=== PATIENT | male | born 1970 ===

== ENCOUNTER 2020-07-14 09:14 | Outpatient (REF) | payer MEDICARE, MEDICAID, SELFPAY ==
[2020-07-14 11:14] LABS: MANUAL DIFF FLAG NO
[2020-07-14 11:24] LABS: Basophils Percent Auto 0.2 % (0-2); Eosinophils Absolute Auto 0.1 X10*3/uL (0.0-0.4); Eosinophils Percent Auto 1.3 % (0-4); Hematocrit 44.7 % (42-52); Hemoglobin 15.4 g/dl (14.0-18.0); Lymphocytes Absolute Auto 1.3 X10*3/uL (1.2-4.9); Lymphocytes Percent Auto 27.4 % (20-40); Mean Corpuscular HGB Conc 34.5 g/dl (31.0-36.0); Mean Corpuscular Volume 92.9 fL (80-98); Mean Platelet Volume 10.7 fL (9.4-12.4); Monocytes Absolute Auto 0.6 X10*3/uL (0.1-1.2); Monocytes Percent Auto 11.7 % (2-11); Neutrophils Absolute Auto 2.8 X10*3/uL (2.0-8.3); Neutrophils Percent Auto 59.4 % (45-73); Platelet Count 247 X10*3/uL (160-400); Red Blood Count 4.81 X10*6/uL (4.60-5.80); Red Cell Distribution Width 12.5 % (11.0-16.0); White Blood Count 4.7 X10*3/uL (4.8-10.8)
[2020-07-14 11:42] LABS: Alanine Aminotransferase 24 U/L (0-40); Albumin Level 4.2 g/dL (3.5-5.0); Alkaline Phosphatase 72 U/L (39-117); Anion Gap 14 (12-20); Aspartate Amino Transferase 18 U/L (5-37); Bilirubin Total 0.7 mg/dL (0.0-1.0); Blood Urea Nitrogen 13 mg/dL (9-16); Carbon Dioxide 28 mmol/L (22-29); Chloride 102 mmol/L (96-108); Cholesterol 235 mg/dL; Estimated Glomerular Filt Rate > 60; Glucose Fasting 90 mg/dL (60-99); HDL Cholesterol 37 mg/dL; LDL Cholesterol Calculated 129 mg/dl; Potassium 4.1 mmol/L (3.3-5.1); Sodium 140 mmol/L (135-145); Total Protein 6.9 g/dL (6.5-8.0); Triglycerides 349 mg/dL
[2020-07-14 11:55] LABS: Vitamin D 25-OH Total 16.5 ng/mL (>30)
[2020-07-14 12:04] LABS: Thyroid Stimulating Hormone 3.56 uIU/mL (0.32-4.0)
== END 2020-07-14 09:15 | disposition home or self-care (01) ==
LOC: HO.HMGCLDS 09:14
PROVIDERS: Nurse Practitioner Family; PCP Internal Medicine; Visit Provider Internal Medicine
DX: E66.9 Obesity, unspecified (principal); K43.9 Ventral hernia without obstruction or gangrene; R68.89 Other general symptoms and signs; Z86.018 Personal history of other benign neoplasm; Z76.89 Persons encountering health services in other specified circumstances
CPT/HCPCS: 36415; 80053; 80061; 82306; 84443; 85025

== ENCOUNTER 2020-07-21 08:48 | Outpatient (REF) | payer MEDICARE, MEDICAID, SELFPAY ==
--- NOTE | ~2020-07-21 | US_ITS ---
EXAMINATION: US ABDOMEN LIMITED CLINICAL INFORMATION: Ventral hernia without obstruction or pain. COMPARISON: None TECHNIQUE: Real-time imaging of the abdomen. FINDINGS: There is a 1.5 x 3.5 x 3.5 cm ventral hernia superior to the umbilicus. The neck of the hernia measures 1 cm. No peristalsing bowel is seen and this presumably contains fat. US/US abdomen limited IMPRESSION: Ventral hernia superior to the umbilicus.
== END 2020-07-21 08:49 | disposition home or self-care (01) ==
LOC: HO.US 08:48
PROVIDERS: Visit Provider Internal Medicine
DX: K43.9 Ventral hernia without obstruction or gangrene (principal)
CPT/HCPCS: 76705

== ENCOUNTER 2020-11-10 20:17 | Emergency (ER) | payer MEDICARE, MEDICAID, SELFPAY ==
[2020-11-10 20:35] VITALS: BP 150/84; PULSE 68; RESP 18; TEMP 36.9; O2SAT 96; BMI 30.7
[2020-11-10 21:00] LABS: Strep A Nucleic Acid Negative (Negative)
[2020-11-10 21:18] LABS: COVID-19 Test Negative (Negative)
--- NOTE | 2020-11-10 21:37 | ED_ITS ---
HPI - General Adult General Chief complaint: General Medical Stated complaint: throat pain for 3 days Time Seen by Provider: 11/10/20 21:37 Source: patient Mode of arrival: ambulatory History of Present Illness HPI narrative: 50-year-old male without significant past medical history and denies any cigarette smoking presents with 3-4 days of sore throat that affects his ability to swallow and he has attempted to take some leftover penicillin at home, but states that the pain has not improved. Otherwise, he denies any fever, chills, cough, body aches, GI or symptoms. Related Data Home Medications Medication Instructions Recorded Confirmed No Known Home Meds 05/12/20 07/02/20 Allergies Allergy/AdvReac Type Severity Reaction Status Date / Time No Known Allergies Allergy Verified 11/10/20 20:35 Review of Systems Review of Systems: Pertinent positives and negatives as stated in HPI 10 point review of systems is otherwise negative [facility] Past Medical History Source: nursing notes reviewed Medical History High cholesterol Hypertension Family History Family History Father Hypertension Diabetes Social History Social History Alcohol intake: former Advance Directives: No Advance Directives Information Provided: Yes Physical Exam Vital Signs: Vital Signs: Last Vital Signs Temp 98.4 F 11/10/20 20:35 Pulse 68 11/10/20 20:35 Resp 18 11/10/20 20:35 BP 150/84 H 11/10/20 20:35 Pulse Ox 96 11/10/20 20:35 Body Mass Index 30.7 VITAL SIGNS: Reviewed. GENERAL: Well developed, well nourished, in no acute distress. HEAD: Normocephalic/atraumatic EYES: PERRLA, EOMI EARS: Ext canals without abnormality, TMs non-bulging and non-erythematous NOSE: Nares patent bilateral OROPHARYNX: no oral lesions noted, posterior pharynx is erythematous without noted tonsillar enlargement/erythema/exudates NECK: Supple, no adenopathy LUNGS: Normal breath sounds. No adventitious sounds or accessory muscle use. SpO2<96> CARDIOVASCULAR: Regular rate and rhythm without noted murmurs ABDOMEN: Soft, non-tender, non-distended with bowel sounds. SKIN: Inspection of the skin reveals no rashes NEUROLOGIC: Alert and oriented x 4. Strength and sensation to light touch were grossly intact x 4. Course Course Course Narrative: 50-year-old male with history and clinical presentation most consistent with viral pharyngitis after review of investigations were negative for acute findings. Medical Decision Making Lab Data Labs: Lab Results 11/10/20 11/10/20 Range/Units 20:40 20:57 COVID-19 (YEMI) Negative (Negative) COVID-19 Clin Com See Note S. pyogenes GrpA JAMEEL Negative (Negative) Discharge Plan Discharge Clinical Impression: Pharyngitis Patient Disposition: Home, Self-Care Instructions: Pharyngitis (ED) Additional Instructions: 1. Recomiende hacer g?rgaras con soluci?n salina (ioana de pérez mezclada con agua del grifo tibia) y hacer g?rgaras aurora 5 minutos, dos veces al d?a, aurora 3 d?as. 2. Recomiende Cepacol o Sucrets de venta nando para aliviar el dolor de garganta. 3. Recomiende un humidificador de vapor fr?o junto a la cama mientras duerme. Regrese a la darrell de emergencias por un empeoramiento becky de los s?ntomas. Prescriptions: No Action No Known Home Meds RF: 0 Referrals: Physician,Unknown [Primary Care Provider] - 2 days Print Language: Amharic
== END 2020-11-10 21:54 | disposition home or self-care (01) ==
PROVIDERS: Emergency Provider Student in an Organized Health Care Education/Training Program
DX: J02.9 Acute pharyngitis, unspecified (principal); Z20.822 Contact with and (suspected) exposure to COVID-19; I10 Essential (primary) hypertension; E78.5 Hyperlipidemia, unspecified
CPT/HCPCS: 36415; 87635; 87651; 99283

== ENCOUNTER 2021-04-14 01:25 | Emergency (ER) | payer MEDICARE, MEDICAID, SELFPAY ==
--- NOTE | ~2021-04-14 | XR_ITS ---
EXAMINATION: XR CHEST CLINICAL INFORMATION: Chest pain COMPARISON: None TECHNIQUE: Frontal view of the chest was obtained. FINDINGS: There is blunting of the right costophrenic angle which could be secondary to scarring, as there are adjacent chronic appearing right rib deformities. Small pleural effusion would be difficult to exclude. Lungs appear clear bilaterally. No evidence of pneumothorax or pulmonary edema. The cardiomediastinal contour is unremarkable. No acute osseous findings are seen. XR/XR chest 1V IMPRESSION: Blunting of the right costophrenic angle which may be secondary to scarring, though no prior studies are available for comparison. Small pleural effusion would be difficult to exclude.
--- NOTE | 2021-04-14 01:35 | ECG_ITS ---
Test Reason : CP Blood Pressure : / mmHG Vent. Rate : 069 BPM Atrial Rate : 069 BPM P-R Int : 144 ms QRS Dur : 098 ms QT Int : 382 ms P-R-T Axes : 046 016 020 degrees QTc Int : 409 ms Normal sinus rhythm Normal ECG No previous ECGs available Referred By: Generic ED Physician Electronically Signed By:Demian Logan
[2021-04-14 01:49] VITALS: BP 149/97; PULSE 71; RESP 16; TEMP 37.1; O2SAT 99; BMI 29.0
[2021-04-14 01:49] LABS: MANUAL DIFF FLAG NO
[2021-04-14 01:54] LABS: Basophils Percent Auto 0.3 % (0-2); Eosinophils Absolute Auto 0.1 X10*3/uL (0.0-0.4); Eosinophils Percent Auto 1.8 % (0-4); Hematocrit 42.9 % (42.0-52.0); Hemoglobin 14.9 g/dl (14.0-18.0); Imm Gran Abs Auto 0.01 X10*3/uL (0.00-0.03); Imm Gran Pct Auto 0.2 % (0.0-0.4); Lymphocytes Percent Auto 32.4 % (20-40); Mean Corpuscular HGB Conc 34.7 g/dl (31.0-36.0); Mean Corpuscular Hemoglobin 31.7 pg (27.0-33.0); Mean Corpuscular Volume 91.3 fL (80.0-98.0); Mean Platelet Volume 10.1 fL (9.4-12.4); Monocytes Absolute Auto 0.7 X10*3/uL (0.1-1.2); Monocytes Percent Auto 11.6 % (2-11); Neutrophils Absolute Auto 3.2 x10*3/uL (2.0-8.3); Neutrophils Percent Auto 53.7 % (45-73); Platelet Count 239 X10*3/uL (160-400); Red Cell Distribution Width 12.4 % (11.0-16.0)
[2021-04-14 02:06] LABS: Anion Gap 11 (12-20); Blood Urea Nitrogen 16 mg/dL (9-16); Carbon Dioxide 27 mmol/L (22-29); Chloride 104 mmol/L (96-108); Creatinine Clr Calc Pharmacy 99.6; Estimated Glomerular Filt Rate > 60; Glucose Random 98 mg/dL (60-115); Potassium 3.8 mmol/L (3.3-5.1); Sodium 138 mmol/L (135-145)
[2021-04-14 02:14] LABS: Troponin-I High Sensitivity < 3.5 ng/L (<3.5-35.0)
--- NOTE | 2021-04-14 04:10 | ED_ITS ---
HPI - Chest Pain General Chief Complaint: Chest Pain Stated Complaint: chest/heart pain Time Seen by Provider: 04/14/21 04:10 Source: patient History of Present Illness HPI narrative: This is a 51-year-old male with a history of anxiety, who noted a sharp well-localized pain in his left upper chest yesterday afternoon. The patient notes that he had taken Viagra the evening before and wonders if that was not related. The patient also states that he is supposed to be on sertraline for anxiety but has not had it today. Patient denies any shortness of breath, nausea, sweats, leg swelling. He does have a history of hypertension. He notes that the left-sided chest pain is gone now. He denies any cough or fever. Related Data Home Medications Medication Instructions Recorded Confirmed No Known Home Meds 05/12/20 07/02/20 Allergies Allergy/AdvReac Type Severity Reaction Status Date / Time No Known Allergies Allergy Verified 04/14/21 01:51 Review of Systems Review of Systems: Yes all other systems are reviewed and are negative Constitutional: Constitutional: Reports as per HPI and Denies fever(s) Eyes: Eyes: Reports as per HPI and Reports no additional eye complaints ENT: Reports system reviewed and no additional complaints, except as documented, Reports as per HPI, Denies nasal congestion, Denies nasal discharge and Denies sore throat Cardiovascular: Cardiovascular: Reports as per HPI, Reports chest pain and Denies dyspnea Respiratory: Respiratory: Reports as per HPI, Denies cough and Denies dyspnea Gastrointestinal: Gastrointestinal: Reports as per HPI, Denies abdominal pain, Denies diarrhea and Denies vomiting Genitourinary: Genitourinary: Reports as per HPI, Denies hematuria, Denies dysuria and Denies urinary frequency Musculoskeletal: Musculoskeletal: Reports no additional musculoskeletal complaints and Denies numbness Integumentary/Breasts: Skin/Breast: Reports as per HPI and Denies rash Neurologic: Reports as per HPI, Denies focal weakness, Denies numbness and Denies Sensory deficit (Neuro) Psychiatric: Psychiatric: Reports as per HPI and Reports anxiety Endocrine: Endocrine: Reports no additional endocrine complaints and Reports as per HPI Hematologic/Lymphatic: Hematologic/Lymphatic: Reports no additional hematologic/lymphatic complaints, Reports as per HPI and Reports other (No peripheral edema) [facility] Past Medical History Medical History High cholesterol Hypertension Family History Family History Father Hypertension Diabetes Social History Social History Alcohol intake: former Advance Directives: No Advance Directives Information Provided: Yes Physical Exam Vital Signs: Vital Signs: Last Vital Signs Temp 98.7 F 04/14/21 01:49 Pulse 71 04/14/21 01:49 Resp 16 04/14/21 01:49 BP 149/97 H 04/14/21 01:49 Pulse Ox 99 04/14/21 01:49 BMI result Body Mass Index 29.0 Const: Other: Patient initially standing at the edge of his room, watching to see when he would be seen, when I initially went to ask him if I can help, he stated that he feels anxious. General: cooperative, no acute distress and alert Orientation/consciousness: patient oriented x3 HENMT: Head: Yes normal to inspection Eyes: General: appearance normal, both eyes and all related structures Eyelids: Yes eyelids normal Conjunctivae: conjunctivae normal Pupils: Equal, round and reactive pupils present Neck: Neck: Yes normal visual inspection and Yes supple Chest: Chest palpation & inspection: normal inspection of the chest Resp: Effort & Inspection: normal respiratory effort Auscultation: clear to auscultation bilaterally Cardio: Rate: regular rate Rhythm: regular rhythm Heart sounds: S1 normal heart sound present, S2 normal heart sound present, no gallops, no murmurs and no rubs GI: Palpation (GI): Soft to palpation, nontender and Other GI palpation findings present (Non-distended) Auscultation: normal bowel sounds Skin: General skin exam: no rashes or lesions noted Neuro: General: patient oriented x3, no focal motor deficits and CN's II-XI intact bilaterally Cranial nerves: Yes Equal, round and reactive pupils pres ent Cognition (Neuro): normal cognition Motor exam (neuro): 5/5 motor strength present throughout Sensory Exam: No Sensory deficit (Neuro) Extrem: General: Yes normal to inspection and Yes no pedal edema Psych: Appearance: grossly normal Affect: normal affect MDM - Chest Pain MDM Narrative Medical decision making narrative: Patient had localized left upper chest pain, now resolved. Patient thought it was related to taking Viagra the night before. Patient does have history of anxiety and appeared anxious. EKG and troponin normal. No suspicion for acute coronary syndrome or chest pain of ischemic etiology Lab Data Attestation: I reviewed the patient's lab results. Result diagrams: 04/14/21 01:41 04/14/21 01:41 Labs: Lab Results 04/14/21 04/14/21 04/14/21 Range/Units 01:41 01:41 01:41 WBC 6.0 (4.8-10.8) X10*3/uL RBC 4.70 (4.60-5.80) X10*6/uL Hgb 14.9 (14.0-18.0) g/dl Hct 42.9 (42.0-52.0) % MCV 91.3 (80.0-98.0) fL MCH 31.7 (27.0-33.0) pg MCHC 34.7 (31.0-36.0) g/dl RDW 12.4 (11.0-16.0) % Plt Count 239 (160-400) X10*3/uL MPV 10.1 (9.4-12.4) fL Immature Gran % (Auto) 0.2 (0.0-0.4) % Neut % (Auto) 53.7 (45-73) % Lymph % (Auto) 32.4 (20-40) % [place] % (Auto) 11.6 H (2-11) % Eos % (Auto) 1.8 (0-4) % Baso % (Auto) 0.3 (0-2) % Lymph # (Auto) 2.0 (1.2-4.9) X10*3/uL [place] # (Auto) 0.7 (0.1-1.2) X10*3/uL Eos # (Auto) 0.1 (0.0-0.4) X10*3/uL Baso # (Auto) 0.0 (0.0-0.2) X10*3/uL Abs Immat Gran (auto) 0.01 (0.00-0.03) X10*3/uL Absolute Neuts (auto) 3.2 (2.0-8.3) x10*3/uL Absolute Nucleated RBC 0.000 (0.0-0.012) X10*3/uL Nucleated RBC % (auto) 0.0 (0.0-0.2) /100WBC Sodium 138 (135-145) mmol/L Potassium 3.8 (3.3-5.1) mmol/L Chloride 104 (96-108) mmol/L Carbon Dioxide 27 (22-29) mmol/L Anion Gap 11 L (12-20) BUN 16 (9-16) mg/dL Creatinine 0.88 (0.5-1.4) mg/dL Estim Creat Clear Calc 99.6 Estimated GFR > 60 Random Glucose 98 (60-115) mg/dL Calcium 9.0 (8.4-10.2) mg/dL Troponin I High Sens < 3.5 (<3.5-35.0) ng/L Imaging Data Chest x-ray: Radiologist's impression: IMPRESSION: Blunting of the right costophrenic angle which may be secondary to scarring, though no prior studies are available for comparison. Small pleural effusion would be difficult to exclude. ? ECG Data ECG #1: Attestation: I personally reviewed and interpreted this ECG as follows: ECG interpretation date: 04/14/21 ECG interpretation time: 05:35 Interpretation: Sinus rhythm with a rate of 69. No ST elevation or depression. Normal QRS axis. No ectopy. Normal EKG. Discharge Plan Discharge Clinical Impression: Nonspecific chest pain, Anxiety Patient Disposition: Home, Self-Care Instructions: Noncardiac Chest Pain (ED), Anxiety (ED) Additional Instructions: Continue current medications. Follow up with your primary care physician. Prescriptions: No Action No Known Home Meds RF: 0
[2021-04-14] MEDS: LORazepam 1 MG TABLET PO (04:28)
== END 2021-04-14 05:49 | disposition home or self-care (01) ==
PROVIDERS: Emergency Provider Emergency Medicine
DX: R07.9 Chest pain, unspecified (principal); F41.1 Generalized anxiety disorder; F43.0 Acute stress reaction; Z79.899 Other long term (current) drug therapy
CPT/HCPCS: 36415; 71045; 80048; 84484; 85025; 93005; 99283; 99284

== ENCOUNTER 2021-12-29 01:48 | Emergency (ER) | payer MEDICARE, MEDICAID, SELFPAY ==
--- NOTE | ~2021-12-29 | CT_ITS ---
EXAMINATION: CT ABDOMEN AND PELVIS WITHOUT CONTRAST CLINICAL INFORMATION: Upper abdominal pain COMPARISON: None TECHNIQUE: Multidetector volumetric imaging was performed from the superior aspect of the liver through the pubic symphysis. Sagittal and coronal reformatted images were obtained on the technologist's workstation. This CT examination was performed using dose optimization techniques as appropriate, variously including the following: *Automated exposure control *Adjustment of mA and/or kV according to patient size (this includes techniques or standardized protocols for targeted exams where dose is matched to indication/reason for exam; i.e. extremities or head) *Use of iterative reconstruction technique DLP: 668 mGy-cm FINDINGS: LUNG BASES: Bibasilar atelectasis. The visualized cardiac structures are unremarkable. Circumferential esophageal wall thickening. LIVER, GALLBLADDER, AND BILIARY TREE: The liver is normal in size, shape, and attenuation. Calcification along the superior margin of the liver. No focal hepatic lesion or biliary ductal dilatation is present. The gallbladder is unremarkable with no evidence of radiopaque gallstones, gallbladder wall thickening, or obvious pericholecystic inflammatory changes. PANCREAS: Unremarkable. SPLEEN: Unremarkable. ADRENAL GLANDS: Unremarkable. KIDNEYS AND URETERS: The kidneys are normal in size, shape, and attenuation. No hydronephrosis, hydroureter, or calculi seen. No perinephric stranding. BLADDER: Unremarkable. GASTROINTESTINAL TRACT: Distended stomach without wall thickening. The proximal small bowel is fluid-filled and mildly dilated. This leads to an area of small bowel fecalization in the anterior midabdomen, before transitioning to normal caliber small bowel. No colonic wall thickening or acute inflammation. Normal appendix. ABDOMINAL WALL: Small fat-containing ventral abdominal wall hernia. LYMPH NODES: Normal. VASCULAR: Unremarkable. PELVIC VISCERA: The prostate and seminal vesicles are unremarkable. OSSEOUS STRUCTURES: No acute or suspicious osseous abnormality. Mild degenerative changes of the hips and spine. CT/CT abdomen pelvis wo IV con IMPRESSION: Fluid-filled and mildly dilated small bowel proximally leading to an area of fecalization before transition to decompressed bowel. This suggests a partially obstructive process. Fleischner guidelines were followed.
[2021-12-29 02:23] VITALS: BP 139/89; PULSE 74; RESP 17; TEMP 36.8; O2SAT 95; BMI 29.0
--- NOTE | 2021-12-29 02:39 | ED_ITS ---
HPI - Abdominal Pain General Chief Complaint: Abdominal Pain Stated Complaint: abd pain Time Seen by Provider: 12/29/21 02:39 Source: patient Mode of arrival: ambulatory History of Present Illness HPI narrative: Patient with history of ventral hernia acid reflux complaining of increased pain since yesterday in upper abdomen and right upper quadrant with vomiting for last 24 hours with no diarrhea no fever or chills did not eat much today Related Data Previous Rx's Medication Instructions Recorded ondansetron 4 mg disintegrating 4 mg PO Q6-8H PRN nausea and 12/29/21 tablet vomiting #10 tabs pantoprazole 40 mg tablet,delayed 40 mg PO DAILY #30 tabs 12/29/21 release (Protonix) Allergies Allergy/AdvReac Type Severity Reaction Status Date / Time No Known Allergies Allergy Verified 12/29/21 02:20 Review of Systems Review of Systems Yes all other systems are reviewed and are negative [facility] Past Medical History Medical History High cholesterol Hypertension Family History Family History Father Hypertension Diabetes Social History Social History Alcohol intake: never Patient Tobacco Use Status: Never used Tobacco Use of substances other than those prescribed or required for medical reasons: No Advance Directives: No Advance Directives Information Provided: Yes Physical Exam ED Vital Signs: Vital Signs - 24 hr 12/29/21 02:23 12/29/21 04:56 Temperature 98.2 F Pulse Rate 74 71 Respiratory Rate 17 13 Blood Pressure 139/89 142/89 H Pulse Oximetry 95 96 Oxygen Delivery Method Room Air Room Air BMI result Body Mass Index 29.0 Appearance: Alert. Oriented X3. No acute distress. Eyes: No pallor or icterus ENT: Pharynx normal. Oral Mucosa moist Neck: Normal inspection. Neck supple. CVS: Normal heart rate and rhythm. Pulses normal. Respiratory: No respiratory distress. Equal air entry bilateral, no wheezing/rales/rhonchi Abdomen: Soft , tenderness in the right upper quadrant no rebound tenderness guarding Bowel sounds are present, no mass palpable, no CVA tenderness Skin: Skin warm and dry. Normal skin color. Normal skin turgor. Extremities: No lower extremity edema. No calf tenderness Neuro: Oriented X 3. No motor deficit. MDM - Abdominal Pain MDM Narrative Medical decision making narrative: Patient with partial bowel obstruction no active vomiting in the ER. Will discharge patient home on Zofran, to have clear food for now really get better Differential Diagnosis Differential diagnosis: Likely abdominal pain Lab Data Result diagrams: 12/29/21 02:55 12/29/21 02:55 Labs: Lab Results 12/29/21 12/29/21 12/29/21 Range/Units 02:41 02:55 02:55 WBC 10.8 (4.8-10.8) X10*3/uL RBC 5.08 (4.60-5.80) X10*6/uL Hgb 15.8 (14.0-18.0) g/dl Hct 45.4 (42.0-52.0) % MCV 89.4 (80.0-98.0) fL MCH 31.1 (27.0-33.0) pg MCHC 34.8 (31.0-36.0) g/dl RDW 12.3 (11.0-16.0) % Plt Count 237 (160-400) X10*3/uL MPV 10.0 (9.4-12.4) fL Immature Gran % (Auto) 0.4 (0.0-0.4) % Neut % (Auto) 76.5 H (45-73) % Lymph % (Auto) 16.5 L (20-40) % [place] % (Auto) 6.5 (2-11) % Eos % (Auto) 0.0 (0-4) % Baso % (Auto) 0.1 (0-2) % Lymph # (Auto) 1.8 (1.2-4.9) X10*3/uL [place] # (Auto) 0.7 (0.1-1.2) X10*3/uL Eos # (Auto) 0.0 (0.0-0.4) X10*3/uL Baso # (Auto) 0.0 (0.0-0.2) X10*3/uL Abs Immat Gran (auto) 0.04 H (0.00-0.03) X10*3/uL Absolute Neuts (auto) 8.3 (2.0-8.3) x10*3/uL Absolute Nucleated RBC 0.000 (0.0-0.012) X10*3/uL Nucleated RBC % (auto) 0.0 (0.0-0.2) /100WBC Sodium 135 (135-145) mmol/L Potassium 3.8 (3.3-5.1) mmol/L Chloride 98 (96-108) mmol/L Carbon Dioxide 27 (22-29) mmol/L Anion Gap 14 (12-20) BUN 17 H (9-16) mg/dL Creatinine 0.90 (0.5-1.4) mg/dL Estim Creat Clear Calc 100.5 Estimated GFR > 60 POC Glucose 149 H (60-115) mg/dL Random Glucose 145 H D (60-115) mg/dL Calcium 9.5 (8.4-10.2) mg/dL Total Bilirubin 0.5 (0.0-1.0) mg/dL AST 20 (5-37) U/L ALT 23 (0-40) U/L Alkaline Phosphatase 77 (39-117) U/L Total Protein 7.1 (6.5-8.0) g/dL Albumin 4.1 (3.5-5.0) g/dL Lipase 16 (8-78) U/L COVID-19 (YEMI) (Negative) COVID-19 Clin Com 12/29/21 Range/Units 02:55 WBC (4.8-10.8) X10*3/uL RBC (4.60-5.80) X10*6/uL Hgb (14.0-18.0) g/dl Hct (42.0-52.0) % MCV (80.0-98.0) fL MCH (27.0-33.0) pg MCHC (31.0-36.0) g/dl RDW (11.0-16.0) % Plt Count (160-400) X10*3/uL MPV (9.4-12.4) fL Immature Gran % (Auto) (0.0-0.4) % Neut % (Auto) (45-73) % Lymph % (Auto) (20-40) % [place] % (Auto) (2-11) % Eos % (Auto) (0-4) % Baso % (Auto) (0-2) % Lymph # (Auto) (1.2-4.9) X10*3/uL [place] # (Auto) (0.1-1.2) X10*3/uL Eos # (Auto) (0.0-0.4) X10*3/uL Baso # (Auto) (0.0-0.2) X10*3/uL Abs Immat Gran (auto) (0.00-0.03) X10*3/uL Absolute Neuts (auto) (2.0-8.3) x10*3/uL Absolute Nucleated RBC (0.0-0.012) X10*3/uL Nucleated RBC % (auto) (0.0-0.2) /100WBC Sodium (135-145) mmol/L Potassium (3.3-5.1) mmol/L Chloride (96-108) mmol/L Carbon Dioxide (22-29) mmol/L Anion Gap (12-20) BUN (9-16) mg/dL Creatinine (0.5-1.4) mg/dL Estim Creat Clear Calc Estimated GFR POC Glucose (60-115) mg/dL Random Glucose (60-115) mg/dL Calcium (8.4-10.2) mg/dL Total Bilirubin (0.0-1.0) mg/dL AST (5-37) U/L ALT (0-40) U/L Alkaline Phosphatase (39-117) U/L Total Protein (6.5-8.0) g/dL Albumin (3.5-5.0) g/dL Lipase (8-78) U/L COVID-19 (YEMI) Negative (Negative) COVID-19 Clin Com See Note Discharge Plan Discharge Clinical Impression: Abdominal pain, Partial bowel obstruction Patient Disposition: Home, Self-Care Instructions: Abdominal Pain (ED), Ileus (ED) Additional Instructions: Have clear liquids advanced slowly Medicine for nausea as prescribed Report to the ER if worsening of the pain or swelling Prescriptions: New ondansetron 4 mg tablet,disintegrating 4 mg PO Q6-8H PRN (Reason: nausea and vomiting) Qty: 10 0RF pantoprazole [Protonix] 40 mg tablet,delayed release (DR/EC) 40 mg PO DAILY Qty: 30 0RF Interventions: ED Discharge Assessment Last Done: 12/29/21 05:07 Discharge Date/Time: 12/29/21 05:08
[2021-12-29 02:45] LABS: Glucose, Whole Blood 149 mg/dL (60-115)
[2021-12-29 02:59] LABS: MANUAL DIFF FLAG NO
[2021-12-29 03:00] LABS: Basophils Percent Auto 0.1 % (0-2); Hematocrit 45.4 % (42.0-52.0); Hemoglobin 15.8 g/dl (14.0-18.0); Imm Gran Abs Auto 0.04 X10*3/uL (0.00-0.03); Imm Gran Pct Auto 0.4 % (0.0-0.4); Lymphocytes Absolute Auto 1.8 X10*3/uL (1.2-4.9); Lymphocytes Percent Auto 16.5 % (20-40); Mean Corpuscular HGB Conc 34.8 g/dl (31.0-36.0); Mean Corpuscular Hemoglobin 31.1 pg (27.0-33.0); Mean Corpuscular Volume 89.4 fL (80.0-98.0); Monocytes Absolute Auto 0.7 X10*3/uL (0.1-1.2); Monocytes Percent Auto 6.5 % (2-11); Neutrophils Absolute Auto 8.3 x10*3/uL (2.0-8.3); Neutrophils Percent Auto 76.5 % (45-73); Platelet Count 237 X10*3/uL (160-400); Red Blood Count 5.08 X10*6/uL (4.60-5.80); Red Cell Distribution Width 12.3 % (11.0-16.0); White Blood Count 10.8 X10*3/uL (4.8-10.8)
[2021-12-29] MEDS: ondansetron HCL 4 MG/2 ML VIAL IVPUSH (03:04)
[2021-12-29] MEDS: Famotidine/PF 20 MG/2 ML VIAL IVPUSH (03:04)
[2021-12-29] MEDS: Morphine Sulfate 4 MG/ML CARTRIDGE IVPUSH (03:04)
[2021-12-29] MEDS: 0.9 % Sodium Chloride 1,000 ML 999 ML IV (03:04)
[2021-12-29 03:22] LABS: Alanine Aminotransferase 23 U/L (0-40); Albumin Level 4.1 g/dL (3.5-5.0); Alkaline Phosphatase 77 U/L (39-117); Anion Gap 14 (12-20); Aspartate Amino Transferase 20 U/L (5-37); Bilirubin Total 0.5 mg/dL (0.0-1.0); Blood Urea Nitrogen 17 mg/dL (9-16); Calcium 9.5 mg/dL (8.4-10.2); Carbon Dioxide 27 mmol/L (22-29); Chloride 98 mmol/L (96-108); Creatinine Clr Calc Pharmacy 100.5; Estimated Glomerular Filt Rate > 60; Glucose Random 145 mg/dL (60-115); Lipase 16 U/L (8-78); Potassium 3.8 mmol/L (3.3-5.1); Sodium 135 mmol/L (135-145); Total Protein 7.1 g/dL (6.5-8.0)
[2021-12-29 03:23] LABS: COVID-19 Test Negative (Negative)
[2021-12-29 04:56] VITALS: BP 142/89; PULSE 71; RESP 13; O2SAT 96
== END 2021-12-29 05:08 | disposition home or self-care (01) ==
PROVIDERS: Emergency Provider Internal Medicine
DX: K56.600 Partial intestinal obstruction, unspecified as to cause (principal); R10.10 Upper abdominal pain, unspecified; Z20.822 Contact with and (suspected) exposure to COVID-19; Z79.899 Other long term (current) drug therapy
CPT/HCPCS: 36415; 74176; 80053; 82947; 83690; 85025; 87635; 96361; 96374; 96375; 99284; J2270; J2405

== ENCOUNTER → 2022-03-31 09:37 | Outpatient (BNVA) | payer MEDICARE, MEDICAID, SELFPAY | PROVIDERS: PCP Internal Medicine; Visit Provider Urology | DX: F52.4 Premature ejaculation (principal) | CPT/HCPCS: 99202 ==

== ENCOUNTER → 2022-05-02 10:52 | Outpatient (BNVA) | payer OTHER, SELFPAY | PROVIDERS: PCP Internal Medicine; Visit Provider Physician Assistant | DX: K43.9 Ventral hernia without obstruction or gangrene (principal); I10 Essential (primary) hypertension; E78.00 Pure hypercholesterolemia, unspecified; Z12.11 Encounter for screening for malignant neoplasm of colon | CPT/HCPCS: 99202 ==

== ENCOUNTER → 2022-06-27 13:05 | Outpatient (BNVA) | payer OTHER, SELFPAY | PROVIDERS: Visit Provider Nurse Practitioner Family | DX: R06.83 Snoring (principal); R40.0 Somnolence; R06.81 Apnea, not elsewhere classified; E66.9 Obesity, unspecified | CPT/HCPCS: 99202 ==

== ENCOUNTER 2022-07-14 17:20 | Outpatient (REF) | payer OTHER, SELFPAY ==
[2022-07-14 18:45] LABS: Influenza A PCR NEGATIVE (Negative); Influenza B PCR NEGATIVE (Negative); Resp Syncy Virus RNA Qual PCR NEGATIVE (Negative); SARS COV2 PCR INHOUSE NEGATIVE (Negative)
== END 2022-07-14 17:21 | disposition home or self-care (01) ==
LOC: HO.LNP 17:20
PROVIDERS: Visit Provider Physician Assistant Medical
DX: Z20.822 Contact with and (suspected) exposure to COVID-19 (principal); J06.9 Acute upper respiratory infection, unspecified
CPT/HCPCS: 0241U

== ENCOUNTER → 2022-07-17 14:05 | Outpatient (REF) | payer OTHER, SELFPAY | LOC: HO.SL 14:05 | PROVIDERS: Visit Provider Psychiatry & Neurology Neurology | DX: G47.33 Obstructive sleep apnea (adult) (pediatric) (principal); E66.9 Obesity, unspecified; R40.0 Somnolence | CPT/HCPCS: 95806 ==

== ENCOUNTER 2022-08-13 16:55 | Emergency (ER) | payer OTHER, SELFPAY ==
--- NOTE | 2022-08-13 | ECG_ITS ---
Test Reason : CHEST PAIN Blood Pressure : / mmHG Vent. Rate : 070 BPM Atrial Rate : 070 BPM P-R Int : 126 ms QRS Dur : 098 ms QT Int : 390 ms P-R-T Axes : 057 026 016 degrees QTc Int : 421 ms Normal sinus rhythm Normal ECG When compared with ECG of 14-APR-2021 01:38, No significant change was found Referred By: Generic ED Physician Electronically Signed By:CHRISSIE NAZARIO MD
--- NOTE | ~2022-08-13 | XR_ITS ---
EXAMINATION: XR CHEST CLINICAL INFORMATION: Chest pain COMPARISON: 04/14/2021 TECHNIQUE: Frontal view of the chest was obtained. FINDINGS: Focal elevation/eventration of the right lateral hemidiaphragm again noted. No significant abnormality is noted involving the heart, lungs, mediastinum, bony thorax or soft tissues. XR/XR chest 1V IMPRESSION: No active chest disease. No active chest disease.
[2022-08-13 17:08] VITALS: BP 141/75; PULSE 73; RESP 22; TEMP 37.1; O2SAT 98; BMI 29.8
--- NOTE | 2022-08-13 17:16 | ED.CHESTPAIN ---
HPI - Chest Pain General Chief Complaint: Chest Pain Stated Complaint: chest pain /shoulder pain Related Data Home Medications Medication Instructions Recorded Confirmed lorazepam 1 mg tablet 1 mg PO BEDTIME PRN 03/31/22 07/14/22 sertraline 100 mg tablet mg PO 03/31/22 07/14/22 [id number] 5 10 ml PO Q4H PRN 07/14/22 07/14/22 mg-10 mg-100 mg/5 mL oral liquid (Adult Robitussin Peak Cold M-S) Previous Rx's Medication Instructions Recorded tadalafil 5 mg tablet 5 mg PO DAILY sexual activity 90 03/31/22 days #90 tabs polyethylene glycol 3350 17 238 g PO ONCE 1 day #238 grams 05/02/22 gram/dose oral powder (Miralax) albuterol sulfate 90 mcg/actuation 2 puff inhalation Q6H PRN 07/14/22 aerosol inhaler shortness of breath or wheezing #6.7 grams benzonatate 100 mg capsule 100 mg PO TID PRN cough #30 caps 07/14/22 prednisone 20 mg tablet 40 mg PO DAILY 5 days #10 tabs 07/14/22 Allergies Allergy/AdvReac Type Severity Reaction Status Date / Time No Known Allergies Allergy Verified 07/14/22 15:56 [facility] Past Medical History Medical History High cholesterol Hypertension Surgical History History of esophagogastroduodenoscopy (EGD) Family History Family History Father Hypertension Diabetes Social History Social History Housing: Apartment Alcohol intake: never Patient Tobacco Use Status: Never used Tobacco e-Cigarette/Vaping Use: Never Used Advance Directives: No Advance Directives Information Provided: No Current occupational status: unemployed Cognitive needs: No Hearing needs: No Vision needs: Yes Physical Exam Vital Signs: Vital Signs: Last Vital Signs Temp 98.7 F 08/13/22 17:08 Pulse 73 08/13/22 17:08 Resp 22 H 08/13/22 17:08 BP 141/75 H 08/13/22 17:08 Pulse Ox 98 08/13/22 17:08 BMI result Body Mass Index 29.8 Course Course Course Narrative: RME: 52 yold male presents to the ED for left sided chest pain since this morning that has improved. NO pleurisy, or shortness of breath. labs, EKG, and chest xray ordered. no leg swelling Medical Decision Making Lab Data 08/13/22 17:45 08/13/22 17:45 Labs: Lab Results 08/13/22 08/13/22 08/13/22 Range/Units 17:45 17:45 17:45 WBC 4.3 L (4.8-10.8) X10*3/uL RBC 4.42 L (4.60-5.80) X10*6/uL Hgb 14.3 (14.0-18.0) g/dl Hct 40.4 L (42.0-52.0) % MCV 91.4 (80.0-98.0) fL MCH 32.4 (27.0-33.0) pg MCHC 35.4 (31.0-36.0) g/dl RDW 12.9 (11.0-16.0) % Plt Count 227 (160-400) X10*3/uL MPV 10.5 (9.4-12.4) fL Immature Gran % (Auto) 0.7 H (0.0-0.4) % Neut % (Auto) 52.5 (45-73) % Lymph % (Auto) 28.0 (20-40) % Mcdonald % (Auto) 15.8 H (2-11) % Eos % (Auto) 2.8 (0-4) % Baso % (Auto) 0.2 (0-2) % Lymph # (Auto) 1.2 (1.2-4.9) X10*3/uL Mcdonald # (Auto) 0.7 (0.1-1.2) X10*3/uL Eos # (Auto) 0.1 (0.0-0.4) X10*3/uL Baso # (Auto) 0.0 (0.0-0.2) X10*3/uL Abs Immat Gran (auto) 0.03 (0.00-0.03) X10*3/uL Absolute Neuts (auto) 2.2 (2.0-8.3) x10*3/uL Absolute Nucleated RBC 0.000 (0.0-0.012) X10*3/uL Nucleated RBC % (auto) 0.0 (0.0-0.2) /100WBC PT 10.5 (10.0-13.1) SEC INR 0.9 (0.9-1.1) APTT 32.6 (26.0-36.4) SEC Sodium 143 (135-145) mmol/L Potassium 4.1 (3.3-5.1) mmol/L Chloride 110 H (96-108) mmol/L Carbon Dioxide 27 (22-29) mmol/L Anion Gap 10 L (12-20) BUN 15 (9-16) mg/dL Creatinine 0.82 (0.5-1.4) mg/dL Estim Creat Clear Calc 107.0 Estimated GFR > 60 Random Glucose 93 (60-115) mg/dL Calcium 9.3 (8.4-10.2) mg/dL Total Bilirubin 0.4 (0.0-1.0) mg/dL AST 27 (5-37) U/L ALT 29 (0-40) U/L Alkaline Phosphatase 86 (39-117) U/L Troponin I High Sens (<3.5-35.0) ng/L B-Natriuretic Peptide (<100) pg/mL Total Protein 6.5 (6.5-8.0) g/dL Albumin 3.8 (3.5-5.0) g/dL 08/13/22 08/13/22 Range/Units 17:45 17:45 WBC (4.8-10.8) X10*3/uL RBC (4.60-5.80) X10*6/uL Hgb (14.0-18.0) g/dl Hct (42.0-52.0) % MCV (80.0-98.0) fL MCH (27.0-33.0) pg MCHC (31.0-36.0) g/dl RDW (11.0-16.0) % Plt Count (160-400) X10*3/uL MPV (9.4-12.4) fL Immature Gran % (Auto) (0.0-0.4) % Neut % (Auto) (45-73) % Lymph % (Auto) (20-40) % Mcdonald % (Auto) (2-11) % Eos % (Auto) (0-4) % Baso % (Auto) (0-2) % Lymph # (Auto) (1.2-4.9) X10*3/uL Mcdonald # (Auto) (0.1-1.2) X10*3/uL Eos # (Auto) (0.0-0.4) X10*3/uL Baso # (Auto) (0.0-0.2) X10*3/uL Abs Immat Gran (auto) (0.00-0.03) X10*3/uL Absolute Neuts (auto) (2.0-8.3) x10*3/uL Absolute Nucleated RBC (0.0-0.012) X10*3/uL Nucleated RBC % (auto) (0.0-0.2) /100WBC PT (10.0-13.1) SEC INR (0.9-1.1) APTT (26.0-36.4) SEC Sodium (135-145) mmol/L Potassium (3.3-5.1) mmol/L Chloride (96-108) mmol/L Carbon Dioxide (22-29) mmol/L Anion Gap (12-20) BUN (9-16) mg/dL Creatinine (0.5-1.4) mg/dL Estim Creat Clear Calc Estimated GFR Random Glucose (60-115) mg/dL Calcium (8.4-10.2) mg/dL Total Bilirubin (0.0-1.0) mg/dL AST (5-37) U/L ALT (0-40) U/L Alkaline Phosphatase (39-117) U/L Troponin I High Sens < 2.7 (<3.5-35.0) ng/L B-Natriuretic Peptide 23 (<100) pg/mL Total Protein (6.5-8.0) g/dL Albumin (3.5-5.0) g/dL Discharge Plan Discharge Clinical Impression: Chest pain Patient Disposition: Elopement Prescriptions: No Action Adult Robitussin Peak Cold M-S 5-10-100 mg/5 mL liquid 10 ml PO Q4H PRN albuterol sulfate 90 mcg/actuation HFA aerosol inhaler 2 puff inhalation Q6H PRN (Reason: shortness of breath or wheezing) Qty: 6.7 0RF benzonatate 100 mg capsule 100 mg PO TID PRN (Reason: cough) Qty: 30 0RF prednisone 20 mg tablet 40 mg PO DAILY 5 Days Qty: 10 0RF sertraline 100 mg tablet PO lorazepam 1 mg tablet 1 mg PO BEDTIME PRN tadalafil 5 mg tablet 5 mg PO DAILY 90 Days Qty: 90 0RF polyethylene glycol 3350 [Miralax] 17 gram/dose powder 238 g PO ONCE 1 Days Qty: 238 0RF Rx Instructions: Take as directed by mouth the day before your procedure. Interventions: ED Discharge Assessment Last Done: 08/13/22 20:36 Discharge Date/Time: 08/13/22 20:36
[2022-08-13 17:48] LABS: MANUAL DIFF FLAG NO
[2022-08-13 17:55] LABS: INTERNATIONAL NORM RATIO 0.9 (0.9-1.1); Prothrombin Time 10.5 SEC (10.0-13.1)
[2022-08-13 17:57] LABS: Partial Thromboplastin Time 32.6 SEC (26.0-36.4)
[2022-08-13 18:03] LABS: Alanine Aminotransferase 29 U/L (0-40); Albumin Level 3.8 g/dL (3.5-5.0); Alkaline Phosphatase 86 U/L (39-117); Anion Gap 10 (12-20); Aspartate Amino Transferase 27 U/L (5-37); Bilirubin Total 0.4 mg/dL (0.0-1.0); Blood Urea Nitrogen 15 mg/dL (9-16); Calcium 9.3 mg/dL (8.4-10.2); Carbon Dioxide 27 mmol/L (22-29); Chloride 110 mmol/L (96-108); Estimated Glomerular Filt Rate > 60; Glucose Random 93 mg/dL (60-115); Potassium 4.1 mmol/L (3.3-5.1); Sodium 143 mmol/L (135-145); Total Protein 6.5 g/dL (6.5-8.0)
[2022-08-13 18:08] LABS: Basophils Percent Auto 0.2 % (0-2); Eosinophils Absolute Auto 0.1 X10*3/uL (0.0-0.4); Eosinophils Percent Auto 2.8 % (0-4); Hematocrit 40.4 % (42.0-52.0); Hemoglobin 14.3 g/dl (14.0-18.0); Imm Gran Abs Auto 0.03 X10*3/uL (0.00-0.03); Imm Gran Pct Auto 0.7 % (0.0-0.4); Lymphocytes Absolute Auto 1.2 X10*3/uL (1.2-4.9); Mean Corpuscular HGB Conc 35.4 g/dl (31.0-36.0); Mean Corpuscular Hemoglobin 32.4 pg (27.0-33.0); Mean Corpuscular Volume 91.4 fL (80.0-98.0); Mean Platelet Volume 10.5 fL (9.4-12.4); Monocytes Absolute Auto 0.7 X10*3/uL (0.1-1.2); Monocytes Percent Auto 15.8 % (2-11); Neutrophils Absolute Auto 2.2 x10*3/uL (2.0-8.3); Neutrophils Percent Auto 52.5 % (45-73); Platelet Count 227 X10*3/uL (160-400); Red Blood Count 4.42 X10*6/uL (4.60-5.80); Red Cell Distribution Width 12.9 % (11.0-16.0); White Blood Count 4.3 X10*3/uL (4.8-10.8)
[2022-08-13 18:11] LABS: B Type Natriuretic Peptide 23 pg/mL (<100)
[2022-08-13 18:14] LABS: Troponin-I High Sensitivity < 2.7 ng/L (<3.5-35.0)
== END 2022-08-13 20:36 | disposition left against medical advice (07) ==
PROVIDERS: Physician Assistant; Emergency Provider Emergency Medicine
DX: R07.89 Other chest pain (principal); R06.02 Shortness of breath; M25.512 Pain in left shoulder; M25.511 Pain in right shoulder; Z79.899 Other long term (current) drug therapy
CPT/HCPCS: 36415; 71045; 80053; 83880; 84484; 85025; 85610; 85730; 93005; 99283

== ENCOUNTER 2022-09-20 18:55 | Emergency (ER) | payer OTHER, SELFPAY ==
[2022-09-20 19:13] VITALS: BP 160/92; PULSE 81; RESP 19; TEMP 36.1; O2SAT 96; BMI 28.2
--- NOTE | 2022-09-20 19:20 | ED.GENADULT ---
HPI - General Adult General Chief complaint: Extremity Problem Stated complaint: numbness in both hands Time Seen by Provider: 09/20/22 19:20 Source: patient, RN notes reviewed, old records reviewed and creative services specialist Mode of arrival: ambulatory Limitations: language barrier History of Present Illness HPI narrative: 52-year-old male presents for evaluation of ?tingling in both hands. ? 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 He denies any trauma to the hand, denies any chest pain, denies any neck pain Patient states that his symptoms feel ?as if my hands were raised in the ER for a while. ? He has no other complaints or concerns at this time Related Data Home Medications Medication Instructions Recorded Confirmed lorazepam 1 mg tablet 1 mg PO BEDTIME PRN 03/31/22 07/14/22 sertraline 100 mg tablet mg PO 03/31/22 07/14/22 phhxraggsubno-VK-ceuvsvfoqlz 5 10 ml PO Q4H PRN 07/14/22 07/14/22 mg-10 mg-100 mg/5 mL oral liquid (Adult Robitussin Peak Cold M-S) Previous Rx's Medication Instructions Recorded tadalafil 5 mg tablet 5 mg PO DAILY sexual activity 90 03/31/22 days #90 tabs polyethylene glycol 3350 17 238 g PO ONCE 1 day #238 grams 05/02/22 gram/dose oral powder (Miralax) albuterol sulfate 90 mcg/actuation 2 puff inhalation Q6H PRN 07/14/22 aerosol inhaler shortness of breath or wheezing #6.7 grams benzonatate 100 mg capsule 100 mg PO TID PRN cough #30 caps 07/14/22 prednisone 20 mg tablet 40 mg PO DAILY 5 days #10 tabs 07/14/22 Allergies Allergy/AdvReac Type Severity Reaction Status Date / Time No Known Allergies Allergy Verified 07/14/22 15:56 Review of Systems Musculoskeletal: Musculoskeletal: Reports tingling Neurologic: Reports tingling and Reports paresthesias PMFSH Past Medical History Medical History High cholesterol Hypertension Surgical History History of esophagogastroduodenoscopy (EGD) Family History Family History Father Hypertension Diabetes Social History Social History Housing: Apartment Alcohol intake: never Patient Tobacco Use Status: Never used Tobacco e-Cigarette/Vaping Use: Never Used Current occupational status: unemployed Cognitive needs: No Hearing needs: No Vision needs: Yes Physical Exam ED Vital Signs: Vital Signs - 24 hr 09/20/22 19:13 Temperature 96.9 F Pulse Rate 81 Respiratory Rate 19 Blood Pressure 160/92 H Pulse Oximetry 96 Oxygen Delivery Method Room Air BMI result Body Mass Index 28.2 Const General: healthy appearing, comfortable, no acute distress, alert and awake Nutritional Appearance: well nourished Orientation/consciousness: patient oriented x3 HENMT Head: Yes normocephalic and Yes atraumatic Eyes Eyelids: Yes eyelids normal Conjunctivae: conjunctivae normal Sclerae: sclerae normal Corneas: corneas normal Pupils: Equal, round and reactive pupils present EOM: EOMs intact bilaterally Neck Neck: Yes full ROM Resp Effort & Inspection: normal respiratory effort, able to speak in complete sentences and not labored Cardio Other: Radial pulses 2+ equal Skin General skin exam: no rashes or lesions noted Neuro General: patient oriented x3 Cranial nerves: Yes Equal, round and reactive pupils present Cognition (Neuro): normal cognition Extrem Other: Moving all extremities well without any obvious deformities. No tenderness with rotation of the shoulders, elbows, wrists bilaterally. No cervical spine tenderness. Medical Decision Making Medical Decision Making MDM Narrative: Patient has no objective findings on exam. He has no edema, no tenderness. Has full range of motion to both upper extremities. Strength is 5/5 in all major muscle groups. Patient has no C-spine tenderness. No neck pain. Patient likely has paresthesias related to his new job driving for [employer]. This was discussed at length the patient. He may use a left wrist brace as he feels this is the worst side. 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 You may try using a left wrist brace to help with your symptoms Follow-up with your primary doctor Prescriptions: No Action Adult Robitussin Peak Cold M-S 5-10-100 mg/5 mL liquid 10 ml PO Q4H PRN albuterol sulfate 90 mcg/actuation HFA aerosol inhaler 2 puff inhalation Q6H PRN (Reason: shortness of breath or wheezing) Qty: 6.7 0RF benzonatate 100 mg capsule 100 mg PO TID PRN (Reason: cough) Qty: 30 0RF prednisone 20 mg tablet 40 mg PO DAILY 5 Days Qty: 10 0RF sertraline 100 mg tablet PO lorazepam 1 mg tablet 1 mg PO BEDTIME PRN tadalafil 5 mg tablet 5 mg PO DAILY 90 Days Qty: 90 0RF polyethylene glycol 3350 [Miralax] 17 gram/dose powder 238 g PO ONCE 1 Days Qty: 238 0RF Rx Instructions: Take as directed by mouth the day before your procedure.
== END 2022-09-20 19:36 | disposition home or self-care (01) ==
PROVIDERS: Emergency Provider Student in an Organized Health Care Education/Training Program
DX: R20.2 Paresthesia of skin (principal); I10 Essential (primary) hypertension; E78.00 Pure hypercholesterolemia, unspecified; Z79.899 Other long term (current) drug therapy
CPT/HCPCS: 99282; 99283

== ENCOUNTER 2023-01-30 10:17 | Outpatient (AMB) | payer OTHER, SELFPAY ==
--- NOTE | 2023-01-30 10:21 | MHC.PC.OV ---
Vital Signs 01/30/23 10:23 Height 57 ft Weight 201 lb BMI 0.3 BP 138/92 H Blood Pressure Location Rt brachial Position Sitting Pulse 90 Pulse Source Pulse Oximeter Pulse Oximetry (%) 97 Oxygen Delivery Method Room Air Intake Visit Reasons: Broken Arm Fall,01/29/23, [facility] Allergies No Known Allergies Allergy (Verified 01/30/23 10:23) Medication List - Last Reconciled 01/30/23 by Rhina Thurman MD albuterol sulfate 90 mcg/actuation 2 puffs inhalation Q6H PRN cephalexin 250 mg PO QID oxycodone-acetaminophen 5-325 mg tabs PO polyethylene glycol 3350 (Miralax) 238 grams PO ONCE 1 day sertraline mg PO Tobacco use date assessed: 06/02/22 Dental Screening Dental Screen Date: 01/30/23 Did you have a dental visit in the last 12 months?: Yes Did you have a dental problem in the last 6 months where you did not have access to dental care?: No Was dental information given to patient?: Patient has dentist HPI Broken Arm Fall,01/29/23, [facility] HPI Details Patient is a 52-year-old gentleman came in today for hospital discharge follow-up from yesterday [facility] Patient says that he fell off the truck he missed the handle Fell to ground on his right shoulder and hit his head Patient says that he lost his consciousness for few moments In emergency room patient had a CT scan of neck and head which was negative I have no paperwork from emergency room all information obtained from patient's discharge notes and verbal He is here with his who speaks Sammarinese Patient encountered open fracture distal humerus Patient says that he was told that there is no surgeon to operate so he splint was applied along with shoulder sling and was given a referral to see orthopedic in 10 days in [place]. 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 Patient is in need of urgent orthopedic referral which I have placed for the patient All medications sent to his local pharmacy Including Percocet for 7 days 21 tablets Note given to be off work until evaluated by Orthopedic. His blood pressure is slightly elevated as well [facility] Medical History High cholesterol Hypertension Surgical History History of esophagogastroduodenoscopy (EGD) Family History Father Hypertension Diabetes Social History Housing: Apartment Alcohol intake: never Patient Tobacco Use Status: Never used Tobacco e-Cigarette/Vaping Use: Never Used Current occupational status: unemployed Cognitive needs: No Hearing needs: No Vision needs: Yes Questionnaire PHQ-9 Over the last 2 weeks, how often have you been bothered by any of the following problems? 34477 - PHQ-9 Billing: Patient declined-do not bill Source: Developed by Drs. Deven Naranjo, Cornelia Marmolejo, Harry Manrique and colleagues, with an educational amari from [employer]. AUDIT C Alcohol Use Questionnaire (AUDIT-C) 1. How often do you have a drink containing alcohol?: Never 3. How often do you have six or more drinks on one occasion?: Never Total Score: 0 Score Reviewed/Action Taken: Yes Review of Systems Const Denies chills and Denies fever(s) ENT Denies epistaxis and Denies nasal discharge Card Denies chest pain Resp Denies chest congestion, Denies cough and Denies hemoptysis GI Denies diarrhea and Denies nausea Skin/Breast Denies rash Neuro Reports no additional complaints Psych Reports no additional complaints Endo Reports no additional complaints Physical exam (Primary Care) Vital Signs: Last Vital Signs Pulse 90 01/30/23 10:23 BP 138/92 H 01/30/23 10:23 Pulse Ox 97 01/30/23 10:23 Oxygen Delivery Method Room Air 01/30/23 10:23 BMI result Body Mass Index 0.3 Tobacco/Smoking Status: Tobacco use Status Tobacco use date assessed 06/02/22 01/30/23 10:27 Patient Tobacco Use Status Never used Tobacco 01/30/23 10:27 e-Cigarette/Vaping Use Never Used 01/30/23 10:27 Const General: cooperative, comfortable and no acute distress Orientation/consciousness: patient oriented x3 HENMT Head: Yes normocephalic Eyes General: appearance normal, both eyes and all related structures Neck Neck: Yes supple Resp Effort & Inspection: normal respiratory effort, no cough and no stridor Cardio Rhythm: regular rhythm Heart sounds: S1 normal heart sound present and S2 normal heart sound present Skin General skin exam: turgor normal Neuro General: patient oriented x3 and tone normal Extrem Shoulder/upper arm images: 1. Arm in splint and sling, patient is able to move his hand fully without any pain, no hand swelling. Right lower extremity: no edema Left lower extremity: no edema Assessment and Plan Assessment & Plan (1) Hospital discharge follow-up: Code(s): Z09 - Encounter for follow-up examination after completed treatment for conditions other than malignant neoplasm (2) Open fracture of distal end of left humerus: Code(s): S42.402B - Unspecified fracture of lower end of left humerus, initial encounter for open fracture Qualifiers: Encounter type: initial encounter Fracture morphology: unspecified fracture morphology Qualified Code(s): S42.402B - Unspecified fracture of lower end of left humerus, initial encounter for open fracture (3) Pain management: Code(s): R52 - Pain, unspecified (4) Elevated blood pressure reading: Code(s): R03.0 - Elevated blood-pressure reading, without diagnosis of hypertension Plan Patient is a 52-year-old gentleman came in today for hospital discharge follow-up from yesterday [facility] Patient says that he fell off the truck he missed the handle Fell to ground on his right shoulder and hit his head Patient says that he lost his consciousness for few moments In emergency room patient had a CT scan of neck and head which was negative I have no paperwork from emergency room all information obtained from patient's discharge notes and verbal He is here with his who speaks Sammarinese Patient encountered open fracture distal humerus Patient says that he was told that there is no surgeon to operate so he splint was applied along with shoulder sling and was given a referral to see orthopedic in 10 days in [place]. 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 Patient is in need of urgent orthopedic referral which I have placed for the patient All medications sent to his local pharmacy Including Percocet for 7 days 21 tablets Note given to be off work until evaluated by Orthopedic. His blood pressure is slightly elevated as well which can be secondary to pain Orders: Referrals Orthopedics Referral S42.402B - Unspecified fracture of lower end of left humerus, initial encounter for open fracture Medications: New oxycodone-acetaminophen 5-325 mg 1 tab PO Q8H PRN 21 tabs 0RF pain 7 days cephalexin 500 mg PO QID 40 caps 0RF 10 days cholecalciferol (vitamin D3) 25 mcg PO DAILY 90 caps 0RF 90 days Refilled polyethylene glycol 3350 (Miralax) Take as directed by mouth the day before your procedure. 238 grams PO ONCE 238 grams 0RF 1 day Coding Level of Care Code Est Pt Level 5 (74865) Diagnoses Hospital discharge follow-up Z09 Open fracture of distal end of left humerus, unspecified fracture morphology, initial encounter S42.402B Encounter type: initial encounter Fracture morphology: unspecified fracture morphology Pain management R52 Elevated blood pressure reading R03.0 Time Spent (min) 45 Comment 5 prep, 30 with pt, 10 charting in coordination of care
[2023-01-30 10:23] VITALS: BP 138/92; PULSE 90; O2SAT 97
== END 2023-01-30 11:21 | disposition home or self-care (01) ==
PROVIDERS: PCP Internal Medicine; Visit Provider Internal Medicine
DX: Z09 Encounter for follow-up examination after completed treatment for conditions other than malignant neoplasm (principal); S42.402B Unspecified fracture of lower end of left humerus, initial encounter for open fracture; R52 Pain, unspecified; R03.0 Elevated blood-pressure reading, without diagnosis of hypertension
CPT/HCPCS: 99215

== ENCOUNTER 2023-01-30 23:07 | Emergency (ER) | payer OTHER, SELFPAY ==
[2023-01-30 23:13] VITALS: BP 170/110; PULSE 87; O2SAT 96
[2023-01-30 23:17] VITALS: BP 153/81; PULSE 78; RESP 18; TEMP 36.6; O2SAT 95; BMI 29.0
--- NOTE | 2023-01-31 01:39 | ED_ITS ---
HPI - Extremity Problem General Chief complaint: Extremity Injury, Upper Stated complaint: LEFT ARM PAIN Time Seen by Provider: 01/31/23 01:27 Source: patient Mode of arrival: ambulatory Limitations: no limitations History of Present Illness HPI Narrative: 52 yo male recent L bicondylar T-Y fracture open DC on 01/29 after a fall from [facility] in [place] - plan for surgery on 02/08 but he doesn't want to wait so he came tonight hoping to get surgery. He is also on cephalexin as well. He was told he could also follow up with [facility] given the kind of surgery he would need and he did not call yet. We explained in the middle of the night pending any emergency he would need to follow up in the clinic MD Complaint: extremity pain and extremity swelling Onset (ago): day(s) (few) Pain Consistency: constant Location: left and upper extremity Quality: aching and constant Radiation: distal Relieving factors: immobilization Exacerbating factors: range of motion and palpation Associated symptoms: denies other symptoms Context: other (recent injury) Related Data Home Medications Medication Instructions Recorded Confirmed sertraline 100 mg tablet mg PO 03/31/22 01/30/23 Previous Rx's Medication Instructions Recorded albuterol sulfate 90 mcg/actuation 2 puff inhalation Q6H PRN 07/14/22 aerosol inhaler shortness of breath or wheezing #6.7 grams cephalexin 500 mg capsule 500 mg PO QID 10 days #40 caps 01/30/23 cholecalciferol (vitamin D3) 25 25 mcg PO DAILY 90 days #90 caps 01/30/23 mcg (1,000 unit) capsule oxycodone-acetaminophen 5 mg-325 1 tab PO Q8H PRN pain 7 days #21 01/30/23 mg tablet tabs polyethylene glycol 3350 17 238 g PO ONCE 1 day #238 grams 01/30/23 gram/dose oral powder (Miralax) Allergies Allergy/AdvReac Type Severity Reaction Status Date / Time No Known Allergies Allergy Verified 01/30/23 23:22 Review of Systems Review of Systems: Constitutional : No Fever, No Chills Cardiovascular : No Chest Pain, No SOB Respiratory : No Cough, No Dyspnea Gastrointestinal : No Nausea, No Vomiting, No Diarrhea, No abdominal Pain Genitourinary : No Dysuria, No Hematuria Musculoskeletal : positive joint pain, No Myalgias, pos Joint Swelling Skin : No Skin lacerations, No rash Neuro : No Weakness, No Numbness All other systems reviewed and are negative [facility] Past Medical History Attestation statement: The following information was validated with the patient. Source: old records reviewed Medical History High cholesterol Hypertension Surgical History History of esophagogastroduodenoscopy (EGD) Family History Family History Father Hypertension Diabetes Social History Social History Housing: Apartment Alcohol intake: never Patient Tobacco Use Status: Never used Tobacco e-Cigarette/Vaping Use: Never Used Advance Directives: No Advance Directives Information Provided: No Current occupational status: unemployed Cognitive needs: No Hearing needs: No Vision needs: Yes Physical Exam Vital Signs: Vital Signs: Last Vital Signs Temp 98 F 01/30/23 23:17 Pulse 68 01/31/23 02:05 Resp 18 01/31/23 02:05 BP 138/82 01/31/23 02:05 Pulse Ox 99 01/31/23 02:05 O2 Del Method Room Air 01/31/23 02:05 BMI result Body Mass Index 29.0 Appearance: Alert. Oriented X3. No acute distress. Eyes: Pupils equal, round and reactive to light. ENT: Pharynx normal. Neck: Normal inspection. Neck supple. CVS: Normal heart rate and rhythm. Pulses normal. Respiratory: No respiratory distress. Abdomen: Soft and nontender. Skin: Skin warm and dry. Normal skin color. Normal skin turgor. Extremities: L arm in sling compartments are soft whole arm is wrapped - distal hand is swollen but warm and well perfused can wiggle fingers SILT intact, BCR Neuro: Oriented X 3. No motor deficit. No sensory deficit. Medical Decision Making Medical Decision Making MDM Narrative: 52 yo male with PMH of HTN DARREL, recent L bicondylar T-Y humerus fracture open treated at [facility] in [place] plan is surgery on 02/08 - sent home on oxycodone and cephalexin but he doesn't want to wait. He was told he could see [facility] as well g iven the procedure. He came to the ED tonight hoping to get into the OR. He has no signs of infection, hand is swollen but compartments are soft and compressible distal NV intact at this time we discussed outpatient care and follow up - he is going to call [facility] or his [place] surgeon in the AM. He is a little shocked and upset we cannot take him into the OR now. Differential Diagnosis Differential Diagnoses: The differential diagnosis associated with the presentation includes known fracture Admission/Observation Consideration of admission/observation: Escalation of care including admission/observation considered this is outpatient care at this time does not need admission no signs of infection NV intact External Record Review External record reviewed: Outpatient record Tests considered The following testing was considered but not selected: xray Prescription Management I considered prescription management with: Pain Medication Discharge Plan Discharge Clinical Impression: Fracture, humerus Qualifiers: Encounter type: subsequent encounter Humerus Location: transcondylar fracture Fracture type: open Laterality: left Fracture healing: with delayed healing Patient Disposition: Home, Self-Care Instructions: Arm Fracture in Adults (ED), Shoulder Immobilizer (ED) Additional Instructions: you can follow up with your surgeon in [place] as planned or with [facility] as recommended by your doctor if you do not want to go to [place]. The number was given to you. Continue to take your medications. Return for any concerns. Puede realizar un seguimiento con franco cirujano en [facility] seg?n lo planeado o con [facility] seg?n lo recomiende franco m?dico si no desea ir a [facility]. El n?mell te lo dieron. Contin?e tomando alla medicamentos. Regrese por cualquier inquietud. Prescriptions: No Action albuterol sulfate 90 mcg/actuation HFA aerosol inhaler 2 puff inhalation Q6H PRN (Reason: shortness of breath or wheezing) Qty: 6.7 0RF cephalexin 500 mg capsule 500 mg PO QID 10 Days Qty: 40 0RF oxycodone-acetaminophen 5-325 mg tablet 1 tab PO Q8H PRN (Reason: pain) 7 Days Qty: 21 0RF polyethylene glycol 3350 [Miralax] 17 gram/dose powder 238 g PO ONCE 1 Days Qty: 238 0RF Rx Instructions: Take as directed by mouth the day before your procedure. cholecalciferol (vitamin D3) 25 mcg (1,000 unit) capsule 25 mcg PO DAILY 90 Days Qty: 90 0RF sertraline 100 mg tablet PO Interventions: ED Discharge Assessment Last Done: 01/31/23 03:23 Discharge Date/Time: 01/31/23 02:30 Print Language: Guyanese
[2023-01-31 02:05] VITALS: BP 138/82; PULSE 68; RESP 18; O2SAT 99
== END 2023-01-31 02:30 | disposition home or self-care (01) ==
PROVIDERS: Emergency Provider Emergency Medicine
DX: S42.302A Unspecified fracture of shaft of humerus, left arm, initial encounter for closed fracture (principal); M79.602 Pain in left arm; X58.XXXA Exposure to other specified factors, initial encounter; Y93.9 Activity, unspecified; Y92.9 Unspecified place or not applicable; Y99.9 Unspecified external cause status; Z79.899 Other long term (current) drug therapy
CPT/HCPCS: 99284

== ENCOUNTER → 2023-02-25 19:33 | Outpatient (REF) | payer OTHER, SELFPAY | LOC: HO.SL 19:33 | PROVIDERS: Visit Provider Nurse Practitioner Family | DX: Z13.89 Encounter for screening for other disorder (principal) ==

== ENCOUNTER 2023-04-06 10:48 | Outpatient (AMB) | payer OTHER, SELFPAY ==
[2023-04-06 12:34] VITALS: BP 120/70; PULSE 75; TEMP 36.4; O2SAT 98; BMI 32.3
--- NOTE | 2023-04-06 12:34 | MHC.OFFWIV ---
Intake Vital Signs 04/06/23 12:34 Height 5 ft 6 in Weight 200 lb BMI 32.3 BP 120/70 Blood Pressure Location Lt brachial Position Sitting Pulse 75 Pulse Source Pulse Oximeter Temp 97.5 F Temp Source Temporal Artery Scan Pulse Oximetry (%) 98 Oxygen Delivery Method Room Air Intake Visit Reasons: EP, left ear blockage [phone] Intake Note: pt is here today for lft ear blockage started 2 weeks ago Patient Tobacco Use Status: Never used Tobacco Allergies No Known Allergies Allergy (Verified 04/06/23 13:23) Medication List - Last Reconciled 04/06/23 by Luiz Samayoa MD albuterol sulfate 90 mcg/actuation 2 puffs inhalation Q6H PRN cephalexin 500 mg PO QID 10 days cholecalciferol (vitamin D3) 25 mcg PO DAILY 90 days llfrkbls-[id number]-IR 3.5-10,000-1 mg/mL-unit/mL-% 4 drps otic (ears) Q8H oxycodone-acetaminophen 5-325 mg 1 tab PO Q8H PRN 7 days polyethylene glycol 3350 (Miralax) 238 grams PO ONCE 1 day sertraline mg PO Do you need a note to return to daycare/school/sports/work: No HPI EP, left ear blockage [phone] HPI Details 53-year-old male presents to the office for a sick visit. Patient is complaining of pain in the left ear. Symptoms present for the past few days. [facility] Medical History High cholesterol Hypertension Surgical History History of esophagogastroduodenoscopy (EGD) Family History Father Hypertension Diabetes Social History Housing: Apartment Alcohol intake: never Patient Tobacco Use Status: Never used Tobacco e-Cigarette/Vaping Use: Never Used Current occupational status: unemployed Cognitive needs: No Hearing needs: No Vision needs: Yes Physical Exam Vital Signs: Last Vital Signs Temp 97.5 F 04/06/23 12:34 Pulse 75 04/06/23 12:34 BP 120/70 04/06/23 12:34 Pulse Ox 98 04/06/23 12:34 Oxygen Delivery Method Room Air 04/06/23 12:34 BMI result Body Mass Index 32.3 HEENT Other: Left ear: Ear canal is slightly erythematous. Tympanic membrane is normal. No mastoid tenderness. Assessment & Plan Assessment & Plan (1) Left otitis externa: Code(s): H60.92 - Unspecified otitis externa, left ear Plan: Cortisporin otic drops. If symptoms do not improve to follow-up here. Medications: New lisazybi-ojrsfwvvp-XT 3.5-10,000-1 mg/mL-unit/mL-% 4 drps otic (ears) Q8H 10 mL 0RF Coding Level of Care Code Est Pt Level 3 (98226) Diagnoses Left otitis externa H60.92
== END 2023-04-06 13:58 | disposition home or self-care (01) ==
PROVIDERS: Visit Provider Internal Medicine
DX: H60.92 Unspecified otitis externa, left ear (principal)
CPT/HCPCS: 99213

== ENCOUNTER 2023-05-11 19:32 | Inpatient (IN) | payer OTHER, SELFPAY ==
--- NOTE | ~2023-05-11 | CT_ITS ---
EXAMINATION: CT ABDOMEN AND PELVIS WITH CONTRAST CLINICAL INFORMATION: Abdominal pain COMPARISON: 12/29/2021 TECHNIQUE: Multidetector volumetric images were obtained from the superior aspect of the liver through the pubic symphysis following administration 85 mL of Omnipaque 350 intravenous contrast. Sagittal and coronal reformatted images were obtained on the technologist's workstation. Oral contrast: No This CT examination was performed using dose optimization techniques as appropriate, variously including the following: *Automated exposure control *Adjustment of mA and/or kV according to patient size (this includes techniques or standardized protocols for targeted exams where dose is matched to indication/reason for exam; i.e. extremities or head) *Use of iterative reconstruction technique DLP: 524 mGy-cm FINDINGS: LUNG BASES: Mild bibasilar atelectasis. LIVER, GALLBLADDER, AND BILIARY TREE: The liver is normal in size, shape, and attenuation. Redemonstrated curvilinear calcification in the lateral right hepatic lobe. No focal hepatic lesion or biliary ductal dilatation is present. The gallbladder is unremarkable with no evidence of radiopaque gallstones, gallbladder wall thickening, or obvious pericholecystic inflammatory changes. PANCREAS: Unremarkable. SPLEEN: Unremarkable. ADRENAL GLANDS: Unremarkable. KIDNEYS AND URETERS: Bilateral nephrograms are symmetric. No hydronephrosis or obstructing calculus identified. Small hypodensity in the mid right kidney statistically favors a cyst; no follow-up recommended. BLADDER: Unremarkable. GASTROINTESTINAL TRACT: There are a few mildly dilated, fluid-filled loops of small bowel in the central to left abdomen leading to a fecalized segment in the anterior abdomen. Small bowel beyond this site is relatively collapsed, and overall appearance is suspicious for sequelae of a small bowel obstruction. Small amount of associated free fluid is present in the central abdomen. Large bowel appears unremarkable. The appendix is unremarkable. No free air is seen. ABDOMINAL WALL: Fat-containing ventral hernia is noted. LYMPH NODES: Normal. VASCULAR: Unremarkable. PELVIC VISCERA: Unremarkable. OSSEOUS STRUCTURES: Partially visualized chronic appearing deformities of the lateral right ribs. CT/CT abdomen pelvis w IV con IMPRESSION: Findings suspicious for small bowel obstruction with transition point in the anterior abdomen and a few mildly dilated loops of fluid-filled small bowel. Small amount of associated free fluid.
[2023-05-11 20:44] VITALS: BP 166/95; PULSE 87; RESP 20; TEMP 36.7; O2SAT 99; BMI 31.0
--- NOTE | 2023-05-11 20:46 | ED_ITS ---
HPI - General Adult General Chief complaint: Abdominal Pain Stated complaint: abd pain Time Seen by Provider: 05/11/23 22:05 Source: patient Mode of arrival: ambulatory Limitations: no limitations History of Present Illness HPI narrative: Patient is a 53 year old assigned male at with a history of HTN presenting to the emergency department today with abdominal pain, nausea, and vomiting. Patient states that he suddenly began to have abdominal pain with nausea and vomiting at 1600 on 05/11/2023. Patient states that he was discharged from the hospital yesterday after a surgery on his left humerus. Patient states that his last bowel movement was last night. Patient denies any dizziness, lightheadedness, fever, chills, blurry vision, double vision, loss of vision, chest pain, difficulty breathing, shortness of breath, back pain, night sweats, pain with urination, increased urinary frequency, increased urinary urgency, blood in his urine or stool, syncope or a near syncopal episode, recent trauma or falls, bowel incontinence, bladder incontinence, bladder retention, or any other complaints at this time. Onset (ago): hour(s) Location: abdomen Radiation: non-radiation Severity: moderate Severity scale (1-10): 5 Relieving factors: none Exacerbating factors: none Associated symptoms: nausea/vomiting Treatments prior to arrival: none Related Data Home Medications Medication Instructions Recorded Confirmed sertraline 100 mg tablet mg PO 03/31/22 01/30/23 Previous Rx's Medication Instructions Recorded albuterol sulfate 90 mcg/actuation 2 puff inhalation Q6H PRN 07/14/22 aerosol inhaler shortness of breath or wheezing #6.7 grams cephalexin 500 mg capsule 500 mg PO QID 10 days #40 caps 01/30/23 cholecalciferol (vitamin D3) 25 25 mcg PO DAILY 90 days #90 caps 01/30/23 mcg (1,000 unit) capsule oxycodone-acetaminophen 5 mg-325 1 tab PO Q8H PRN pain 7 days #21 01/30/23 mg tablet tabs polyethylene glycol 3350 17 238 g PO ONCE 1 day #238 grams 01/30/23 gram/dose oral powder (Miralax) [id number] 3.5 4 drp otic (ears) Q8H #10 mL 04/06/23 mg-10,000 unit/mL-1 % ear drops,susp Allergies Allergy/AdvReac Type Severity Reaction Status Date / Time No Known Allergies Allergy Verified 05/11/23 20:43 Review of Systems 2 Constitutional: Constitutional: Reports no additional constitutional complaints, Denies chills, Denies fever(s) and Denies night sweats Eyes: Eyes: Reports no additional eye complaints, Denies blurry vision, Denies change in vision, Denies diplopia, Denies eye discharge, Denies loss of vision and Denies eye pain ENT: Denies dizziness Cardiovascular: Cardiovascular: Reports no additional cardiovascular complaints, Denies chest pain, Denies lightheadedness, Denies Loss of Consciousness and Denies dyspnea Respiratory: Respiratory: Reports no additional respiratory complaints and Denies dyspnea Gastrointestinal: Gastrointestinal: Reports no additional gastrointestinal complaints, Reports abdominal pain, Denies melena, Denies hematochezia, Denies change in bowel habits, Denies change in stool character, Reports constipation, Reports nausea and Reports vomiting Genitourinary: Genitourinary: Reports no additional male genitourinary complaints, Denies hematuria, Denies oliguria, Denies difficulty urinating, Denies dysuria, Denies urinary frequency, Denies urinary hesitancy, Denies urinary incontinence and Denies urinary urgency Musculoskeletal: Musculoskeletal: Reports no additional musculoskeletal complaints, Denies numbness and Denies tingling Neurologic: Denies dizziness, Denies loss of vision, Denies numbness and Denies tingling Psychiatric: Psychiatric: Reports no additional psychiatric complaints Endocrine: Endocrine: Reports no additional endocrine complaints Hematologic/Lymphatic: Hematologic/Lymphatic: Reports no additional hematologic/lymphatic complaints Allergic/Immunologic: Allergic/Immunologic: Reports no additional allergic/immunologic complaints [facility] Past Medical History Attestation statement: The following information was validated with the patient. Source: old records reviewed and nursing notes reviewed Medical History Elevated blood pressure reading Pain management Open fracture of distal end of left humerus Cough Snoring Daytime sleepiness Witnessed apneic spells Sensation of fullness in both ears Acquired generalized premature ejaculation Hospital discharge follow-up Obesity due to excess calories Change in mole Pharyngitis Loud snoring Colon cancer screening Change in mole Establishing care with new doctor, encounter for History of changing skin mole Obesity Mass of abdomen Swelling Toenail deformity Multiple complaints High cholesterol Hypertension Surgical History History of esophagogastroduodenoscopy (EGD) Family History Family History Father Hypertension Diabetes Social History Social History Housing: Apartment Alcohol intake: never Patient Tobacco Use Status: Never used Tobacco e-Cigarette/Vaping Use: Never Used Advance Directives: No Advance Directives Information Provided: No Current occupational status: unemployed Cognitive needs: No Hearing needs: No Vision needs: Yes Physical Exam ED Vital Signs: Vital Signs - 24 hr 05/11/23 20:44 05/11/23 22:23 Temperature 98.1 F 98.0 F Pulse Rate 87 82 Respiratory Rate 20 20 Blood Pressure 166/95 H 179/97 H Pulse Oximetry 99 97 Oxygen Delivery Method Room Air Room Air BMI result Body Mass Index 31.0 Const General: cooperative, no acute distress, alert and awake Nutritional Appearance: well nourished Orientation/consciousness: patient oriented x3 Limitations: no limitations HENMT Head: Yes normal to inspection and Yes atraumatic Ears: hearing grossly normal bilaterally and external ears normal General nose exam: Normal external nose present, no nasal discharge noted and no epistaxis Face and sinus: Yes normal facial exam, No abrasion and No laceration Mouth: Normal oral and palatal mucosa present, no drooling and no muffled voice Eyes General: appearance normal, both eyes and all related structures Periorbital: periorbital findings normal Eyelids: Yes eyelids normal Conjunctivae: conjunctivae normal Pupils: Equal, round and reactive pupils present EOM: EOMs intact bilaterally Neck Neck: Yes normal visual inspection, Yes full ROM and Yes no lymphadenopathy Chest Chest palpation & inspection: normal inspection of the chest Resp Effort & Inspection: normal respiratory effort and able to speak in complete sentences GI Inspection: Yes normal to inspection Palpation (GI): Soft to palpation, not firm, Tenderness to palpation present (GI), no guarding and not rigid Neuro General: patient oriented x3 and moves all extremities Cranial nerves: Yes Equal, round and reactive pupils present Cognition (Neuro): normal cognition Motor exam (neuro): 5/5 motor strength present throughout Sensory Exam: Normal double simultaneous stimulation for sensation Coordination: [id number] test normal Extrem General: Yes normal to inspection, Yes full ROM and Yes capillary refill normal Psych Appearance: grossly normal Mental Status: mental status grossly normal Affect: normal affect Attitude: cooperative Thought process: Normal thought process present Thought content: Normal thought content present Insight: Good insight present (Psych) Course Course Course Narrative: This is an RME: Additional HPI, ROS, PE not included below will be deferred to primary provider. Patient is a 53-year-old male who presents to the emergency department for evaluation of RUQ/RLQ ABD pain, onset at 16:00 today, states severe, nausea but no vomiting. Denies fevers, chills reports having surgery yesterday at [facility] They put my to sleep for injections in my arm to stretch my arm Medications Administered Discontinued Medications Generic Name Dose Route Start Last Admin Trade Name Frepili PRN Reason Stop Dose Admin Acetaminophen 975 mg 05/11/23 20:53 05/11/23 20:55 Acetaminophen 325 Mg Tablet PO 05/11/23 20:54 975 mg ONCE ONE Administration Sodium Chloride 1,000 mls @ 999 mls/hr 05/11/23 22:45 05/11/23 22:54 Ns IV 05/11/23 23:45 999 mls/hr .Q1H1M CARMEN Administration Iohexol 100 ml 05/11/23 22:53 05/11/23 22:53 Iohexol 350 Mg/Ml 100 Ml Infus..Btl IV 05/11/23 22:54 85 ml ONCE ONE Administration Morphine Sulfate 4 mg 05/11/23 22:32 05/11/23 22:54 Morphine Sulfate 4 Mg/Ml Cartridge IVPUSH 05/11/23 22:33 4 mg ONCE ONE Administration Protocol Ondansetron HCl 4 mg 05/11/23 22:32 05/11/23 22:54 Ondansetron Hcl 4 Mg/2 Ml Vial IVPUSH 05/11/23 22:33 4 mg ONCE ONE Administration Medical Decision Making Medical Decision Making MDM Narrative: Patient is a 53 year old assigned male at with a history of HTN presenting to the emergency department today with abdominal pain, nausea, and vomiting. Patient's physical exam was as noted in the physical exam portion of this note. Patient's blood work was unremarkable. Patient's abdomen/pelvis CT showed a possible SBO. I spoke to the general surgeon who recommended medical admission with their following on the case. I spoke to the hospitalist team who agreed to admission. I explained my physical exam findings as well as all test results to the patient. I answered all questions asked by the patient. Patient verbalized agreement and understanding with this treatment plan and admission. Differential Diagnosis Differential Diagnoses: The differential diagnosis associated with the presentation includes Abdominal pain SBO Admission/Observation Consideration of admission/observation: Escalation of care including admission/observation considered Patient admitted. Consult Healthcare Provider Management of the patient was discussed with: Hospitalist (agreed to admission.) and Executive Administrator (spoke to the general surgeon team as noted in the MDM Rationale portion of this note.) Lab Data [facility] Lab Attestation statement: I reviewed the patient's lab results. My interpretation of these results are in the MDM Rationale portion of this note. 05/11/23 21:02 05/11/23 21:02 Labs: Lab Results 05/11/23 Range/Units 21:02 WBC 9.2 (4.8-10.8) X10*3/uL RBC 5.21 (4.60-5.80) X10*6/uL Hgb 15.5 (14.0-18.0) g/dl Hct 45.3 (42.0-52.0) % MCV 86.9 (80.0-98.0) fL MCH 29.8 (27.0-33.0) pg MCHC 34.2 (31.0-36.0) g/dl RDW 13.1 (11.0-16.0) % Plt Count 277 (160-400) X10*3/uL MPV 9.6 (9.4-12.4) fL Immature Gran % (Auto) 0.3 (0.0-0.4) % Neut % (Auto) 76.7 H (45-73) % Lymph % (Auto) 14.0 L (20-40) % [place] % (Auto) 8.5 (2-11) % Eos % (Auto) 0.4 (0-4) % Baso % (Auto) 0.1 (0-2) % Lymph # (Auto) 1.3 (1.2-4.9) X10*3/uL [place] # (Auto) 0.8 (0.1-1.2) X10*3/uL Eos # (Auto) 0.0 (0.0-0.4) X10*3/uL Baso # (Auto) 0.0 (0.0-0.2) X10*3/uL Abs Immat Gran (auto) 0.03 (0.00-0.03) X10*3/uL Absolute Neuts (auto) 7.1 (2.0-8.3) x10*3/uL Absolute Nucleated RBC 0.000 (0.0-0.012) X10*3/uL Nucleated RBC % (auto) 0.0 (0.0-0.2) /100WBC Sodium 141 (135-145) mmol/L Potassium 4.0 (3.3-5.1) mmol/L Chloride 99 (96-108) mmol/L Carbon Dioxide 31 H (22-29) mmol/L Anion Gap 15 (12-20) BUN 12 (9-16) mg/dL Creatinine 1.09 (0.5-1.4) mg/dL Estim Creat Clear Calc 83.7 Estimated GFR > 60 Random Glucose 125 H (60-115) mg/dL Calcium 9.8 (8.4-10.2) mg/dL Total Bilirubin 0.6 (0.0-1.0) mg/dL AST 22 (5-37) U/L ALT 26 (0-40) U/L Alkaline Phosphatase 132 H (39-117) U/L Total Protein 8.5 H (6.5-8.0) g/dL Albumin 4.3 (3.5-5.0) g/dL Lipase 16 (8-78) U/L Independent Interpretation I performed an independent interpretation of an: CT Scan Interpretation: My interpretation is in agreement with the radiologist's impression of this imaging study. - EXAMINATION: CT ABDOMEN AND PELVIS WITH CONTRAST CLINICAL INFORMATION: Abdominal pain COMPARISON: 12/29/2021 TECHNIQUE: Multidetector volumetric images were obtained from the superior aspect of the liver through the pubic symphysis following administration 85 mL of Omnipaque 350 intravenous contrast. Sagittal and coronal reformatted images were obtained on the technologist's workstation. Oral contrast: No This CT examination was performed using dose optimization techniques as appropriate, variously including the following: *Automated exposure control *Adjustment of mA and/or kV according to patient size (this includes techniques or standardized protocols for targeted exams where dose is matched to indication/reason for exam; i.e. extremities or head) *Use of iterative reconstruction technique DLP: 524 mGy-cm FINDINGS: LUNG BASES: Mild bibasilar atelectasis. LIVER, GALLBLADDER, AND BILIARY TREE: The liver is normal in size, shape, and attenuation. Redemonstrated curvilinear calcification in the lateral right hepatic lobe. No focal hepatic lesion or biliary ductal dilatation is present. The gallbladder is unremarkable with no evidence of radiopaque gallstones, gallbladder wall thickening, or obvious pericholecystic inflammatory changes. PANCREAS: Unremarkable. SPLEEN: Unremarkable. ADRENAL GLANDS: Unremarkable. KIDNEYS AND URETERS: Bilateral nephrograms are symmetric. No hydronephrosis or obstructing calculus identified. Small hypodensity in the mid right kidney statistically favors a cyst; no follow-up recommended. BLADDER: Unremarkable. GASTROINTESTINAL TRACT: There are a few mildly dilated, fluid-filled loops of small bowel in the central to left abdomen leading to a fecalized segment in the anterior abdomen. Small bowel beyond this site is relatively collapsed, and overall appearance is suspicious for sequelae of a small bowel obstruction. Small amount of associated free fluid is present in the central abdomen. Large bowel appears unremarkable. The appendix is unremarkable. No free air is seen. ABDOMINAL WALL: Fat-containing ventral hernia is noted. LYMPH NODES: Normal. VASCULAR: Unremarkable. PELVIC VISCERA: Unremarkable. OSSEOUS STRUCTURES: Partially visualized chronic appearing deformities of the lateral right ribs. CT/CT abdomen pelvis w IV con IMPRESSION: Findings suspicious for small bowel obstruction with transition point in the anterior abdomen and a few mildly dilated loops of fluid-filled small bowel. Small amount of associated free fluid. Dictated By: Ankit Quinn MD Signed By: Electronically signed by Ankit Quinn MD 05/11/23 8040 Radiology Impression Discussion of test interpretation with radiology: I have reviewed the radiologist's reading. Critical Care Time Critical Care Time Critical Care Time: Yes Total Critical Care Time: 55 Attestation: I spent 55 minutes of Critical Care Time with this patient. This does not include time spent on separately reported billable procedures. Discharge Plan Discharge Clinical Impression: Abdominal pain, Small bowel obstruction Patient Disposition: Admitted As Inpatient Prescriptions: No Action albuterol sulfate 90 mcg/actuation HFA aerosol inhaler 2 puff inhalation Q6H PRN (Reason: shortness of breath or wheezing) Qty: 6.7 0RF cephalexin 500 mg capsule 500 mg PO QID 10 Days Qty: 40 0RF oxycodone-acetaminophen 5-325 mg tablet 1 tab PO Q8H PRN (Reason: pain) 7 Days Qty: 21 0RF polyethylene glycol 3350 [Miralax] 17 gram/dose powder 238 g PO ONCE 1 Days Qty: 238 0RF Rx Instructions: Take as directed by mouth the day before your procedure. cholecalciferol (vitamin D3) 25 mcg (1,000 unit) capsule 25 mcg PO DAILY 90 Days Qty: 90 0RF [id number]-FC 3.5-10,000-1 mg/mL-unit/mL-% drops,suspension 4 drp otic (ears) Q8H Qty: 10 0RF sertraline 100 mg tablet PO
[2023-05-11] MEDS: Acetaminophen 325 MG TABLET 975 MG PO (20:55)
[2023-05-11 21:06] LABS: MANUAL DIFF FLAG NO
[2023-05-11 21:07] LABS: Basophils Percent Auto 0.1 % (0-2); Eosinophils Percent Auto 0.4 % (0-4); Hematocrit 45.3 % (42.0-52.0); Hemoglobin 15.5 g/dl (14.0-18.0); Imm Gran Abs Auto 0.03 X10*3/uL (0.00-0.03); Imm Gran Pct Auto 0.3 % (0.0-0.4); Lymphocytes Absolute Auto 1.3 X10*3/uL (1.2-4.9); Mean Corpuscular HGB Conc 34.2 g/dl (31.0-36.0); Mean Corpuscular Hemoglobin 29.8 pg (27.0-33.0); Mean Corpuscular Volume 86.9 fL (80.0-98.0); Mean Platelet Volume 9.6 fL (9.4-12.4); Monocytes Absolute Auto 0.8 X10*3/uL (0.1-1.2); Monocytes Percent Auto 8.5 % (2-11); Neutrophils Absolute Auto 7.1 x10*3/uL (2.0-8.3); Neutrophils Percent Auto 76.7 % (45-73); Platelet Count 277 X10*3/uL (160-400); Red Blood Count 5.21 X10*6/uL (4.60-5.80); Red Cell Distribution Width 13.1 % (11.0-16.0); White Blood Count 9.2 X10*3/uL (4.8-10.8)
[2023-05-11 21:23] LABS: Alanine Aminotransferase 26 U/L (0-40); Albumin Level 4.3 g/dL (3.5-5.0); Alkaline Phosphatase 132 U/L (39-117); Anion Gap 15 (12-20); Aspartate Amino Transferase 22 U/L (5-37); Bilirubin Total 0.6 mg/dL (0.0-1.0); Blood Urea Nitrogen 12 mg/dL (9-16); Calcium 9.8 mg/dL (8.4-10.2); Carbon Dioxide 31 mmol/L (22-29); Chloride 99 mmol/L (96-108); Creatinine Clr Calc Pharmacy 83.7; Estimated Glomerular Filt Rate > 60; Glucose Random 125 mg/dL (60-115); Lipase 16 U/L (8-78); Sodium 141 mmol/L (135-145); Total Protein 8.5 g/dL (6.5-8.0)
[2023-05-11 22:23] VITALS: BP 179/97; PULSE 82; RESP 20; TEMP 36.7; O2SAT 97
[2023-05-11] MEDS: iohexoL 350 MG/ML 100 ML INFUS..BTL IV (22:53)
[2023-05-11] MEDS: 0.9 % Sodium Chloride 1,000 ML 999 ML IV (22:54)
[2023-05-11] MEDS: ondansetron HCL 4 MG/2 ML VIAL IVPUSH (22:54)
[2023-05-11] MEDS: Morphine Sulfate 4 MG/ML CARTRIDGE IVPUSH (22:54)
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
[2023-05-12 01:33] VITALS: BP 137/91; PULSE 90; RESP 16; TEMP 36.8; O2SAT 96
[2023-05-12] MEDS: Pantoprazole Sodium 40 MG/10 ML VIAL IVPUSH ×2 (01:40→08:10)
[2023-05-12] MEDS: Sodium Chloride 0.45 % 1,000 ML 100 ML IVCONT ×2 (01:44→12:15)
[2023-05-12 01:48] LABS: Appearance Urine Clear; Color Urine Yellow; Glucose Urine UA Negative (Negative); Leukocyte Esterase Urine Negative (Negative); Nitrite Urine Negative (Negative); PH 8.5 (5.0-9.0); Specific Gravity - Urine >= 1.030 (1.005-1.025); UMIC TRIGGER UACC YES; Urine Blood Trace (Negative); Urine Ketones Trace mg/dL (Negative); Urine Protein Negative (Neg-Trace)
[2023-05-12 01:53] LABS: Bacteria Urine None Seen (None Seen); Hyaline Casts Urine 0-2 /LPF (0-2); Squamous Epithelial Cell Urine 0-2 /HPF (0-2); WBC Urine 0-5 /HPF (0-5)
[2023-05-12] MEDS: Ketorolac Tromethamine 15 MG/ML VIAL IVPUSH (02:32)
[2023-05-12 03:12] VITALS: BP 150/93; PULSE 86; RESP 17; TEMP 36.2; O2SAT 95
[2023-05-12 06:12] LABS: MANUAL DIFF FLAG NO
[2023-05-12 06:35] LABS: Basophils Percent Auto 0.1 % (0-2); Eosinophils Percent Auto 0.5 % (0-4); Hematocrit 48.7 % (42.0-52.0); Hemoglobin 16.2 g/dl (14.0-18.0); Imm Gran Abs Auto 0.02 X10*3/uL (0.00-0.03); Imm Gran Pct Auto 0.3 % (0.0-0.4); Lymphocytes Absolute Auto 1.3 X10*3/uL (1.2-4.9); Lymphocytes Percent Auto 17.9 % (20-40); Mean Corpuscular HGB Conc 33.3 g/dl (31.0-36.0); Mean Corpuscular Hemoglobin 29.6 pg (27.0-33.0); Mean Corpuscular Volume 88.9 fL (80.0-98.0); Mean Platelet Volume 10.2 fL (9.4-12.4); Monocytes Absolute Auto 0.8 X10*3/uL (0.1-1.2); Neutrophils Absolute Auto 5.3 x10*3/uL (2.0-8.3); Neutrophils Percent Auto 71.2 % (45-73); Platelet Count 318 X10*3/uL (160-400); Red Blood Count 5.48 X10*6/uL (4.60-5.80); Red Cell Distribution Width 13.2 % (11.0-16.0); White Blood Count 7.5 X10*3/uL (4.8-10.8)
[2023-05-12 06:40] LABS: Anion Gap 17 (12-20); Blood Urea Nitrogen 14 mg/dL (9-16); Calcium 9.7 mg/dL (8.4-10.2); Carbon Dioxide 23 mmol/L (22-29); Chloride 104 mmol/L (96-108); Creatinine Clr Calc Pharmacy 82.9; Estimated Glomerular Filt Rate > 60; Glucose Random 109 mg/dL (60-115); Potassium 3.9 mmol/L (3.3-5.1); Sodium 140 mmol/L (135-145)
--- NOTE | 2023-05-12 07:04 | PC.NURSE ---
Patient transferred to floor presser automatic. Patient ambulated halls for quite some time. Patient reported passing flatus and belching during ambulation. Patient had moderate loose/liquid BM in bathroom this morning. Patient denies pain and nausea since transfer from the ED.
[2023-05-12 07:52] VITALS: BP 139/74; PULSE 80; RESP 18; TEMP 36.4; O2SAT 95
--- NOTE | 2023-05-12 08:28 | PHA.MEDREC ---
Addendum entered by Kody Gómez 05/12/23 08:29: Pt reports still being on [id number] ear drops for ear infection. Losartan 25mg is still being taken, however pt has ran out. Original Note: Pharmacy Consult ? Medication Reconciliation Pharmacy has completed the medication reconciliation. Pt understands divehi. Spoke to patient to confirm meds.
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
--- NOTE | 2023-05-12 12:53 | MHC.CM.PN ---
pt lives with s/o has own ride home wont need servceis when dcd
--- NOTE | 2023-05-12 14:31 | PM.CNGS ---
History of Present Illness Consult details Consult date: 05/12/23 Narrative: Patient is a 53-year-old man status post prior abdominal surgery who presented here with abdominal complaints nausea, vomiting, and minimal stool output over the last 1-2 days. He was evaluated emergency department and admitted to medical service. CT scan demonstrated findings suggestive of partial small-bowel obstruction. . On evaluation today, patient has been passing several loose stools. He is hungry. He wishes to commence a diet. Chart was reviewed patient evaluated [facility] Past Medical History Medical History (Updated 05/12/23 @ 01:32 by Amrit Beltran MD) History of small bowel obstruction Elevated blood pressure reading Pain management Open fracture of distal end of left humerus Cough Snoring Daytime sleepiness Witnessed apneic spells Sensation of fullness in both ears Acquired generalized premature ejaculation Hospital discharge follow-up Obesity due to excess calories Change in mole Pharyngitis Loud snoring Colon cancer screening Change in mole Establishing care with new doctor, encounter for History of changing skin mole Obesity Mass of abdomen Swelling Toenail deformity Multiple complaints High cholesterol Hypertension Family History Family History Father Hypertension Diabetes Surgical History Surgical History (Updated 05/12/23 @ 01:32 by Amrit Beltran MD) Hx laparoscopic cholecystectomy History of esophagogastroduodenoscopy (EGD) Social History Social History Household Members: Family Housing: Apartment Do you presently have visiting nurse or other home services: No Alcohol intake: never Patient Tobacco Use Status: Never used Tobacco e-Cigarette/Vaping Use: Never Used Second Hand Smoke Exposure: No service: No Current occupational status: unemployed Cognitive needs: No Hearing needs: No Vision needs: Yes Meds Allergies Allergy/AdvReac Type Severity Reaction Status Date / Time No Known Allergies Allergy Verified 05/11/23 20:43 Active Medications: Current Medications Albuterol Sulfate (Albuterol Sulfate 90 Mcg 8 Gm Inhaler) 2 puff INHALE Q6H PRN PRN Reason: shortness of breath or wheezing Hydralazine HCl (Hydralazine Hcl 20 Mg/Ml Vial) 5 mg IVPUSH Q6H PRN; Protocol PRN Reason: SBP > 160 Sodium Chloride (Sodium Chloride 0.45 %) 1,000 mls @ 100 mls/hr IVCONT .Q10H [facility] Last Admin: 05/12/23 12:15 Dose: 100 mls/hr Ketorolac Tromethamine (Ketorolac Tromethamine 15 Mg/Ml Vial) 15 mg IVPUSH Q6H PRN PRN Reason: Pain, Severe (Pain Scale 7-10) Last Admin: 05/12/23 02:32 Dose: 15 mg Ondansetron HCl (Ondansetron Hcl 4 Mg/2 Ml Vial) 4 mg IVPUSH Q8H PRN PRN Reason: Nausea and Vomiting Pantoprazole Sodium (Pantoprazole Sodium 40 Mg/10 Ml Vial) 40 mg IVPUSH DAILY [facility] Last Admin: 05/12/23 08:10 Dose: 40 mg Sodium Chloride (0.9 % Sodium Chloride Flush 3 Ml Syringe) 3 ml IVFLUSH QSHIFT [facility] Last Admin: 05/12/23 07:22 Dose: Not Given Home Medications Medication Instructions Recorded Confirmed Last Taken Type sertraline 100 mg tablet 150 mg PO BEDTIME 03/31/22 05/12/23 05/10/23 History acetaminophen 650 mg 650 mg PO Q8H PRN Pain 05/12/23 05/12/23 05/11/23 History tablet,extended release losartan 25 mg tablet 25 mg PO DAILY 05/12/23 05/12/23 Unknown History oxycodone 5 mg tablet 5 mg PO TID PRN pain 05/12/23 05/12/23 05/11/23 History tramadol 50 mg tablet 50 mg PO QID PRN pain 05/12/23 05/12/23 05/11/23 History Physical Exam Vital Signs: Vital Signs: Last Vital Signs Temp 97.6 F 05/12/23 07:52 Pulse 80 05/12/23 07:52 Resp 18 05/12/23 07:52 BP 139/74 05/12/23 07:52 Pulse Ox 95 05/12/23 07:52 O2 Del Method Room Air 05/12/23 07:52 BMI result Body Mass Index 31.0 GI: Other: Abdomen soft. Moderately protuberant/corpulent. Lower midline scar. Incisional hernia. No evidence of any guarding, rebound, or rigidity. Benign exam. Results Labs 05/12/23 06:06 05/12/23 06:06 Labs: Abnormal lab results 05/11/23 05/12/23 05/12/23 Range/Units 21:02 01: 06:06 Neut % (Auto) 76.7 H (45-73) % Lymph % (Auto) 14.0 L 17.9 L (20-40) % Carbon Dioxide 31 H (22-29) mmol/L Random Glucose 125 H (60-115) mg/dL Alkaline Phosphatase 132 H (39-117) U/L Total Protein 8.5 H (6.5-8.0) g/dL Ur Specific [place] >= 1.030 H (1.005-1.025) Urine Blood Trace H (Negative) Urine RBC 6-10 H (0-2) /HPF Short CBC 05/11/23 05/12/23 Range/Units 21:02 06:06 WBC 9.2 7.5 (4.8-10.8) X10*3/uL Hgb 15.5 16.2 (14.0-18.0) g/dl Hct 45.3 48.7 (42.0-52.0) % Plt Count 277 318 (160-400) X10*3/uL BMP 05/11/23 05/12/23 21:02 06:06 Sodium 141 140 Potassium 4.0 3.9 Chloride 99 104 Carbon Dioxide 31 H 23 BUN 12 14 Creatinine 1.09 1.10 Calcium 9.8 9.7 Liver Function 05/11/23 Range/Units 21:02 Total Bilirubin 0.6 (0.0-1.0) mg/dL AST 22 (5-37) U/L ALT 26 (0-40) U/L Alkaline Phosphatase 132 H (39-117) U/L Albumin 4.3 (3.5-5.0) g/dL Urine 05/12/23 Range/Units 01:27 Urine Color Yellow Urine Appearance Clear Urine pH 8.5 (5.0-9.0) Ur Specific [place] >= 1.030 H (1.005-1.025) Urine Protein Negative (Neg-Trace) mg/dL Urine Glucose (UA) Negative (Negative) mg/dL All other labs normal. Assessment and Plan (1) Abdominal pain: Status: Acute Plan From a surgical perspective, patient has had complete resolution of his symptoms, hungry, and wishes to start a diet. He is having loose stool. Most likely patient had gastroenteritis/food poisoning. No acute surgical issues at this time. Advance diet as tolerated will follow up p.r.n.. Procedures Date of Service Date of Service: 05/12/23
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
[2023-05-12 15:26] VITALS: BP 136/89; PULSE 84; RESP 18; TEMP 36; O2SAT 96
== END 2023-05-12 18:16 | disposition home or self-care (01) | DRG 390 ==
LOC: HO.ED 05-12 00:29 → HO.EDOVER 05-12 00:51 → HO.S3 05-12 01:40
PROVIDERS: Nurse Practitioner Family; Admitting Provider Internal Medicine; Emergency Provider Emergency Medicine; Visit Provider Physician Assistant Medical
DX: K56.600 Partial intestinal obstruction, unspecified as to cause (principal); I10 Essential (primary) hypertension; G47.33 Obstructive sleep apnea (adult) (pediatric); K21.9 Gastro-esophageal reflux disease without esophagitis; F32.A Depression, unspecified; M79.602 Pain in left arm; G89.21 Chronic pain due to trauma; Z79.899 Other long term (current) drug therapy
CPT/HCPCS: 36415; 74177; 80048; 80053; 81001; 83690; 85025; 99285; C9113; J1885; J2270; J2405; Q9967

== ENCOUNTER → 2023-05-12 00:39 | Outpatient (BNV) | payer OTHER, SELFPAY | PROVIDERS: Admitting Provider Internal Medicine; Emergency Provider Emergency Medicine; Visit Provider Internal Medicine | DX: K56.609 Unspecified intestinal obstruction, unspecified as to partial versus complete obstruction (principal); R10.9 Unspecified abdominal pain | CPT/HCPCS: 99235; 99499 ==

== ENCOUNTER → 2023-05-12 00:39 | Outpatient (BNV) | payer OTHER, SELFPAY | PROVIDERS: Admitting Provider Internal Medicine; Emergency Provider Emergency Medicine; Visit Provider Surgery | DX: R10.9 Unspecified abdominal pain (principal) | CPT/HCPCS: 99221 ==

== ENCOUNTER 2023-05-16 00:21 | Emergency (ER) | payer OTHER, SELFPAY ==
[2023-05-16 00:59] VITALS: BP 145/100; PULSE 83; RESP 18; TEMP 36.8; O2SAT 97; BMI 30.9
--- NOTE | 2023-05-16 01:19 | MHC.EDTECH ---
Patient brought into triage area,labs,and a urine obtained and sent to lab.
--- OUTSIDE RECORDS SUMMARY | 2023-05-16 01:20 | XMS_ITS | Continuity of Care Document ---
Author Name Unknown Organization [facility] ter Address [address] [place] [id number] Care Team Providers Care Center Maker Hand Name Role Phone Not on Staff, PCP Primary Care Physician Unavail able Encounter [facility] Date(s): 05/10/23 - 05/10/[address] [id number] Discharge Disposition: A-D/C Home Attending Physician: Art Pearl MD Admitting Physician: Art Pearl MD Referring Physician: Art Pearl MD Allergies, Adverse Reactions, Alerts No Known Medication Allergies Medications docusate sodium 100 mg oral capsule 1 capsule = 100 mg, By Mouth, 2 times a day, # 28 capsule, 0 Refills, Maintenance, 02/12/23 16:20:00 EDT, Capsule, [facility]/pharmacy #[id number], Partial fill upon patient request if the prescription is for a schedule II opioid drug., 170, cm, 02/12/23 11:42:00... Start Date: 02/12/23 Stop Date: 02/26/23 Status: Ordered losartan 25 mg oral tablet 25 mg, By Mouth, Daily, # 30 tablet, Refills 0, Tot. Refills 0, Maintenance, 02/12/23 16:21:00 EDT,Route to Pharmacy Electronically, [facility]/pharmacy #[id number], Partial fill upon patient request if the prescription is for a schedule II opioid drug., 170, cm,... Start Date: 02/12/23 Stop Date: 03/14/23 Status: Ordered oxyCODONE 10 mg oral tablet 1 tablet = 10 mg, By Mouth, 2 times a day, PRN Pain , Moderate, 0 Refills, Maintenance, 05/07/23 14:32:00 EST, Partial fill upon patient request if the prescription is for a schedule II opioid drug. Start Date: 05/07/23 Status: Ordered Oxycodone 5mg Oral Tablet (PACU ONLY) 5 mg, Tablet, By Mouth, Once, in PACU ONLY, PRN for Pain , Moderate, Routine, 05/10/23 12:33:00 EST Start Date: 05/10/23 Stop Date: 05/10/23 Status: Completed sertraline 100 mg oral tablet 1 tablet = 100 mg, By Mouth, Daily, # 30 tablet, 0 Refills, Maintenance, 05/07/23 14:38:00 EST, Tablet, Partial fill upon patient request if the prescription is for a schedule II opioid drug. Start Date: 05/07/23 Status: Ordered Problem List Condition Confirmation Course Effective Dates Status Health St atus Informant Open fracture of lower end of left humerus Confirmed Active Vital Signs Most recent to oldest [Reference Range]: 1 2 3 Height 170 cm (05/10/23 9:57 AM) 170 cm (05/07/23 2:52 PM) Weight 81.6 kg (05/10/23 9:57 AM) 81.6 kg (05/07/23 2:52 PM) Oxygen Saturation [94-100 %] 94 % (05/10/23 2:30 PM) 96 % (05/10/23 2:15 PM) 94 % (05/10/23 2:00 PM) Pulse Rate [55-90 bpm] 80 bpm (05/10/23 9:57 AM) Body Mass Index [18.5-24.99 kg/m2] 28.24 kg/m2 *H* (05/10/23 9:57 AM) 28.24 kg/m2 *H* (05/07/23 2:52 PM) Blood Pressure [90-138/55-84 mm Hg] 135/105mm Hg (05/10/23 2:30 PM) 149/109mm Hg *H* (05/10/23 2:15 PM) 143/76mm Hg *H* (05/10/23 2:00 PM) Respiratory Rate [16-30 br/min] 12 br/min *L* (05/10/23 2:30 PM) 14 br/min *L* (05/10/23 2:15 PM) 14 br/min *L* (05/10/23 2:14 PM) Temperature [96.8-100.4 DegF] 98.2 DegF (05/10/23 2:30 PM) 98.0 DegF (05/10/23 12:30 PM) 98 DegF (05/10/23 9:57 AM) Mode of Delivery (Oxygen) Room air (05/10/23 2:30 PM) Room air (05/10/23 1:45 PM) Room air (05/10/23 1:30 PM) Blood pressure sites Arm, right (05/10/23 1:30 PM) Arm, right (05/10/23 1:15 PM) Arm, right (05/10/23 1:00 PM) Temperature Route Temporal (05/10/23 2:30 PM) Temporal (05/10/23 12:30 PM) Temporal (05/10/23 9:57 AM) Dry Weight 90.6 kg (05/10/23 9:57 AM) 81.6 kg (05/07/23 2:52 PM) Weight Obtained Via Patient/family state d (05/07/23 2:52 PM) Dry Weight Obtained Via Standing scale (05/10/23 9:57 AM) Patient/family stated (05/07/23 2:52 PM) Note * Camilla Rawls RN: PERFORM Event Display: Discharge/Transfer Note Hospital Authored Date: [id number] Nursing Discharge Note Entered On: 05/10/2023 14:42 EST Performed On: 05/10/2023 15:09 EST by Camilla Rawls RN Nursing Discharge Note 2 Discharge Time : 05/10/2023 15:09 EST Discharge Level of Care at Discharge : Home/Fdc/Foster Care Patient Left Unit Via : Wheelchair Patient Accompanied Off Unit with : Significant other DC Instructions Provided & Signed by Pt : Yes Patient Understands D/C Instructions : Yes Patient Instructions Discharge Signed : Yes Did Pt have Specialty Bed or Wound Vac : No Camilla Rawls RN - 05/10/2023 15:09 EST * Marsha Rodriguez RN: ZAMZAM, PERFORM Event Display: Patient Education/Instruction Authored Date: Inpatient Adult Discharge Instructions [address] [id number] Name: TAYLOR MAST : 1970 Visit: 05/10/2023 08:32:00 Current Date: 05/10/2023 14:10 Account: [id number] Inpatient Adult Discharge Instructions We would like to thank you for allowing us to assist you with your healthcare needs. The following includes patient education materials and information regarding your injury/illness. Our entire staffstrives to provide an excellent experience for our patients and their families. PLEASE ENSURE YOU FOLLOW-UP PER THE INSTRUCTIONS BELOW! ?? YOUR OPINION IS IMPORTANT TO US! Please complete the survey you may receive by mail or email. Your feedback will be used to make improvements to the healthcare experiences of our patients and their families. Surveys are administered by [employer]. ?? If further treatment with your primary care physician or another doctor is recommended, it is important for you to keep the appointment. Call your primary care physician or return to the Emergency Department immediately if your condition worsens, fails to improve, or new symptoms develop. If you need to find a doctor, you can call [facility] [employer] for a referral at [phone] or toll free at [phone] ([phone]) or log in to [email or web address].. ?? [facility], in keeping with [facility] guidance, no longer requires face masks for staff, patientsor visitors in most situations. Similiar to time spent indoors at other locations, there is the chance that you were exposed to repiratory viruses during your time with us (such as flu or COVID-19). If you develop symptoms concerning for a viral respiratory infection, please seek testing (and treatment if indicated) from your medical provider or home test kit. ?? You can view and manage your care through the patient portal or by using a health care quentin of your choosing. [employer] is a website that allows you to securely view your medical information including your hospital discharge summary, office visit summaries, medications and follow-up visits. You can also request appointments, renew medications, and request access to your medical information using a health care quentin of your choosing, or just ask a question. You can enroll at [email or web address] or register during your next office visit. You have been discharged from [facility], Patient Care Unit: PANU. If you have any questions regarding these instructions after you leave, please call us and we will be happy to assist you. [facility] Your Care Team Attending Physician Art Pearl MD Discharging Providers Dae SALINAS, Art Aguirre Reason for Admission LEFT ELBOW STIFFNESS DS Tests Performed Below is a partial list of the tests performed during your hospitalization. You may have had other tests and procedures not included in this list. Please discuss all test results with your provider. Primary Care Provider Not on Staff, PCP Advance Directive Health Care Proxy on File Yes - Health Care Proxy Discharge Vitals Temperature: 98 DegF Height: 170 cm Pulse Rate: 80 bpm Weight: 81.6 kg Respiratory Rate:??15 br/min??Low Body Mass Index:??28.24 kg/m2??High Systolic Blood Pressure:??150 mm Hg??High Body surface area: 1.96 Diastolic Blood Pressure: 84 mm Hg ?? Oxygen Saturation:??93 %??Low ?? Studies Pending All tests and labs ordered during this hospital stay have been completed unless listed below. Please discuss all pending results with your provider listed above in these instructions. ?? No incomplete studies found What to do next You Need to Schedule the Following Appointments Follow Up with??Art Pearl MD When:??Within 1-2 day: call to discuss follow up visit Why: Please call the office to set up a follow up appointment with Dr Pearl. Call the office with any questions or concerns.?? Where: [address] [place] [address], [address] [facility] [place] [address]- Discharge Medications ADAN NEGRONO :1970 Visit Date:05/10/2023 Medications: Please continue your medications until treatment is completed or stopped by your provider. Medications not listed below should be discontinued. Discuss any questions related to medications with your provider. What How Much When Instructions Next Dose Unchanged Docusate (docusate sodium 100 mg oral capsule) 1 capsule Oral Twice a day Duration: 14 Days resume on normal schedule Unchanged Losartan (losartan 25 mg oral tablet) 25 Milligram Oral Daily Duration: 30 Days resume on normal schedule Unchanged Oxycodone (oxyCODONE 10 mg oral tablet) 1 tab(s) Oral Twice a day as needed for Pain , Moderate 6:15pm Unchanged Sertraline (sertraline 100 mg oral tablet) 1 tab(s) Oral Daily resume on normal schedule Test Results Below is a partial list of the most recent Laboratory test results done prior to this discharge. You may have had other tests and procedures not included in this list. Please discuss all test resultswith your provider. Allergies (NKA means No Known Allergies) No Known Medication Allergies Problems Active Problems??(1) Open fracture of lower end of left humerus?? Education Materials Below is the list of Educational Leaflet Providered with your Discharge Instructions. Surgery Medical Daystay Surgical Overnight Discharge Instructions?? Valuables and Belongings I fully understand and agree that [facility] accepts no responsibility for all my personal property including clothing, toilet articles, radios, jewelry, dentures, hearing aids, rings, money, or any other property that is in my possession or is brought to me after admission. I understand certain valuables may be placed in a hospital safe for a short period of time. I understand that the hospital is not liable for loss or damage due to accident, fire, or other natural occurrence while said property is in the safe. I accept full responsibility for any personal property that I keep with me, and will not hold the hospital responsible in case of loss or disappearance. I acknowledge that i have been encouraged to send valuables and belongings home. ?? Review of Valuable and Belonging List: With patient Date for Pt to Sign Valuables/Belongings: 05/10/23 10:41:00 ?? Valuables & Belongings ?? Clothes Electronic devices Jewelry Monetary Items Personal devices Miscellaneous Medications (Valuables) Valuables at Bedside Jacket, Pants, Shirt, Shoes, Undergarments ? Valuables Sent Home ? Valuables Sent to Security ? Other Discharge Information ? Pulmonary Rehab Status?? Pulmonary Rehab Discharge Status?? Respiratory Rate:??15 br/min??Low ? Common Emergency Awareness Tips IS IT A STROKE? Act FAST and Check for these signs: FACE Does the face look uneven? ARM Does one arm drift down? SPEECH Does their speech sound strange? TIME Call at any sign of stroke ?? Heart Attack Signs Chest discomfort: Most heart attacks involve discomfort in the center of the chest and lasts more than a few minutes, or goes away and comes back. It can feel like uncomfortable pressure, squeezing, fullness or pain. Discomfort in upper body: Symptoms can include pain or discomfort in one or both arms, back, neck, jaw or stomach. Shortness of breath: With or without discomfort. Other signs: Breaking out in a cold sweat, nausea, or lightheaded. Remember, MINUTES DO MATTER. If you experience any of these heart attack warning signs, call to get immediate medical attention! ?? Smoking can increase your chances of developing chronic health problems and can cause harmful effects to other family members in your house. If you smoke, you are strongly encouraged to quit. Please call [facility] [employer] at [phone] or 1-512-790-Vatgia.com ([phone]) or log in to [email or web address] for referrals to smoking cessation programs. ?? 412 Suicide & Crisis Lifeline is available 06/11 if you or someone you know needs to find a reason to keep living. By calling 526 you'll be connected to a skilled, trained counselor at a crisis center in your area. INPATIENT DISCHARGE INSTRUCTIONS SIGNATURE PAGE OHARA TAYLOR MAST Location:[facility] Registration Date and Time:05/10/2023 08:32 EST Primary Care Physician: Not on Staff, PCP Attending Physician: Dae SALINAS, Art Aguirre, I TAYLOR NEGRON, have received the above patient education materials/instructions and have verbalized understanding. If ambulance or transport services are being used I further acknowledge being given a choice of service. ?? If you need to contact me, please call me at this number: . Patient/3D Modeler Name: Patient/3D Modeler Signature: Relationship to Patient: Witness Name/Signature: Date: * Marsha Rodriguez RN: PERFORM Event Display: Patient Education Leaflets Authored Date: [id number] Surgery Medical Daystay Surgical Overnight Discharge Instructions ?? 295 Medical Daystay/Surgical Overnight Discharge Instructions ? Since your coordination and judgment may be altered by medication and/or anesthesia, a responsible adult must drive you home from the hospital. ? If you have received medication for pain or sedation while under our care, you should not drive, operate machinery, drink alcohol, or sign any legal documents for 24 hours.?? You should have someone with you at home tonight. ? Remain at home the day of discharge.?? You may be up and about unless otherwise instructed by your physician. ? You may resume your daily prescription medication schedule.?? Any depressant medication should be avoided for 24 hours unless otherwise instructed by your surgeon or anesthesiologist. ? Call your physician for a follow-up appointment.? If you experience unusual or severe pain not relied by your pain medication, excessive bleedingor drainage, persistent nausea and vomiting, excessive swelling or redness, foul odor from incisionsite or fever over 100.6F, you need to call your physician. ? A follow-up phone call by a nurse will be made the day after your procedure.?? If you have stayed with us over night, you will not be receiving a follow-up phone call. ? Nausea and vomiting are a common side effect of prescription pain medication.?? We recommend that pills are not taken on an empty stomach.?? While taking any prescription pain medication you should not drive or drink alcohol. ? Patient Care team information Care Team Personnel Name: Bea Cabello RN Position: S RN Member Role: Primary Care Nurse Name: Evelyn Corado Position: S RN Member Role: Primary Care Nurse Name: Caro Grijalva RN Position: S RN Member Role: Primary Care Nurse Name: Not on Staff, PCP Position: [facility] Physician (General Medicine) Member Role: PCP Care Team Related Persons Name: GOLD OHARA Name: HONEY ARVIZU Address: [address] [address]
--- OUTSIDE RECORDS SUMMARY | 2023-05-16 01:20 | XMS_ITS | Continuity of Care Document ---
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 mientras est?? usando mary medicamento. Las interacciones con otros medicamentos pueden cambiar la forma en que act??an los medicamentos o aumentar el riesgo de presentar efectos secundarios. Informe a alla profesionales sanitarios acerca de todos los medicamentos que usa. [place] incluye medicamentos con y sin receta m??dica, vitaminas y medicamentos a base de hierbas. Hable con carias m??dico o farmac??utico antes de empezar o dejar de usar cualquier medicamento. Informe a carias m??dico si alla s??ntomas no mejoran o si empeoran. ?? Precauciones Mary medicamento contiene un opioide. Aunque los opioides ayudan a muchas personas, pueden causar adicci??n, en especial si se usan aurora mary tiempo. El riesgo de adicci??n es mayor si usted padece un trastorno de uso de sustancias (uso excesivo de drogas o alcohol, o adicci??n a estas sustancias). Preg??ntele a carias m??dico acerca de los beneficios y los riesgos. Pregunte a carias m??dico o a carias farmac??utico si usted debe tener naloxona disponible para tratar zaida sobredosis por opioides. Ens?venice a alla familiares o a las personas que viven con usted a identificar los signos de zaida sobredosis por opioides y c??mo tratarla. Si mariza de usar mary medicamento repentinamente despu??s de haberlo usado aurora mary tiempo, es posible que tenga s??ntomas de abstinencia. Carias m??dico podr??a reducir carias dosis lentamente antes de que deje de usarlo. Informe a carias m??dico de inmediato si tiene s??ntomas, por ejemplo, sudoraci??n inusual, ojos llorosos, goteo nasal, escalofr??os, diarrea, bostezos, efren musculares, inquietud, ansiedad, problemas para dormir o pensamientos suicidas. Informe a carias m??dico y a carias farmac??utico si alguna vez srinivasan tenido zaida reacci??n al??rgica a un medicamento. No use el medicamento m??s veces de lo indicado. Si es posible, evite el uso con alcohol, marihuana u otros medicamentos que puedan causar mareos o somnolencia. Entre estos se incluyen productos para tratar alergias o resfriados, relajantes musculares, medicamentos para ayudar a dormir y medicamentos para aliviar el dolor. Mary medicamento puede afectar carias capacidad de mantenerse alerta o de reaccionar con rapidez. No maneje ni opere m??quinas hasta que sepa qu?? efecto le provocar?? mary medicamento. Mary medicamento pasa a la leche materna. Consulte a carias m??dico antes de amamantar. Mary medicamento puede causar da??os a un beb?? en el ??tero. Si queda embarazada mientras usa estemedicamento, av??perry a carias m??dico de inmediato. El m??dico puede cambiar el medicamento por otro diferente. Los pacientes con dificultades de respiraci??n deben usar mary medicamento con precauci??n. Llame a carias m??dico inmediatamente si observa que la respiraci??n es lenta o superficial. No comparta mary medicamento con otras personas a quienes no se les recet??. Algunos pacientes presentan efectos secundarios graves con mary medicamento. P??nimisha a carias farmac??utico que le muestre la informaci??n de la Administraci??n de Alimentos y Medicamentos (FDA) y que laanalice con usted. ?? Efectos Secundarios La siguiente es zaida lista de algunos efectos secundarios comunes de mary medicamento. Hable con el m??dico para saber qu?? debe hacer en yehuda de tener estos u otros efectos secundarios. ??? p??rdida de apetito ??? estre??imiento ??? mareos o aturdimiento ??? mareo ??? n??useas y v??mitos Si tiene alguno de los siguientes efectos secundarios, es posible que est?? recibiendo demasiada cantidad del medicamento. Comun??quese con carias m??dico para informarle sobre estos efectos secundarios. ??? confusi??n ??? desmayo ??? cansancio o debilidad, extra??o o sin causa aparente ??? dificultad o molestia al orinar Llame al m??dico u obtenga atenci??n m??dica de inmediato si nota cualquiera de estos efectos secundarios m??s graves: ??? sensaci??n de agitaci??n o dificultad para dormir ??? reducci??n del nivel de conciencia o de las reacciones ??? interrupci??n de la respiraci??n aurora el pipe??o ??? respiraci??n r??pida e irregular ??? cambios en la memoria, estado de ??lilian o de pensamientos ??? alucinaciones (pensamientos extra??os, norma u o??r cosas que no son reales) ??? convulsiones ??? dolor intenso del est??german o las v??as digestivas ??? p??rdida de peso Algunas personas podr??an tener reacciones al??rgicas a mary medicamento. Entre los s??ntomas pueden incluirse: dificultad para respirar, erupci??n en la piel, comez??n, hinchaz??n o mareos intensos.Si nota algunos de estos s??ntomas, busque asistencia m??dica r??pidamente. ?? Extra Hable con carias m??dico, enfermero o farmac??utico si tiene alguna pregunta acerca de mary medicamento. ?? [email or web address] NOTA IMPORTANTE: En mary documento hay zaida explicaci??n breve sobre c??mo usar el medicamento, perono incluye todo lo que hay que saber acerca del medicamento. Carias m??dico o carias farmac??utico podr??a suministrarle otros documentos acerca de carias medicamento. Comun??quese con ellos si tiene alguna pregunta. Siga siempre alla consejos. Zaida descripci??n m??s completa de mary medicamento est?? disponibleen ingl??s. Escanee mary c??digo en carias tel??fono inteligente o en carias tableta, o use la direcci??n web que aparece a continuaci??n. Tambi??n puede pedirle a carias farmac??utico zaida copia impresa. Si tiene alguna pregunta, h??gasela a carias farmac??utico. La exhibici??n y el uso de esta informaci??n sobre f??rmacos est?? sujeta a los T??rminos de Uso. Copyright(c) 2022 [employer], [employer]. ?? 1357-7617 [employer], [employer]. All rights reserved. This information is not intended as a substitute for professional medical care. Always follow your healthcare professional's instructions. ?? Patient Care team information Care Team Personnel Name: Bea Cabello RN Position: [facility] RN Member Role: Primary Care Nurse Name: Evelyn Corado Position: S RN Member Role: Primary Care Nurse Name: Gilbert Monroe RN Position: S RN Member Role: Primary Care Nurse Name: Caro Grijalva RN Position: [facility] RN Member Role: Primary Care Nurse Name: Not on Staff, PCP Position: [facility] Physician (General Medicine) Member Role: PCP Name: Lady Carson RN Position: [facility] RN Member Role: Primary Care Nurse Care Team Related Persons Name: HONEY ARVIZU Address: [address] [address]
--- OUTSIDE RECORDS SUMMARY | 2023-05-16 01:20 | XMS_ITS | Continuity of Care Document ---
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 Name Role Phone Not on Staff, PCP Primary Care Physician Unavail able [place] [facility]23 - 01/31/[address] [address]- Discharge Disposition: A-D/C Home Attending Physician: Eli Hobson MD Admitting Physician: Eli Hobson MD Referring Physician: Not on Staff, Referring MD Allergies, Adverse Reactions, Alerts No Known Medication Allergies Medications oxyCODONE 5 mg oral tablet 5 mg, Tablet, By Mouth, Once, STAT, 01/31/23 19:38:00 EDT, Stop date 01/31/23 19:38:00 EDT Start Date: 01/31/23 Stop Date: 01/31/23 Status: Completed Results Radiology Reports * Exam Date Time Procedure Performing Provider Status 01/31/23 8:24 PM Elbow 2 Views Left Robertson HarinderChristine; [facility] (Verified) Notes: (Elbow 2 Views Left) Reason For Exam: with Pain;Trauma RESULT: Elbow 2 Views Left Elbow 2 Views Left CLINICAL INDICATION: Hx of Present Illness: pt was seen at hospital in [place] 2 days ago and seen for open fx of L humerus, was splinted and given sling there, was told to follow up w orthopedic surgery there on 02 07 but pt came back to [place] and wants to get surgery done here, pain controlled w oxy; Reason: Trauma; with Pain; Clinical Question(s): Fracture COMPARISONS: None TECHNIQUE: AP and lateral views of the left elbow were obtained. FINDINGS: The distal left humerus is shattered into more than half a dozen pieces which are widely on the AP view. Articular surface of the distal humerus and the elbow joint space are grossly disrupted making evaluation for alignment difficult. A portion of the humerus remains articulated with theolecranon process and radial head on the lateral view. IMPRESSION: Extensively comminuted placed glenohumeral fracture with disruption of the humeral articular surface and wide separation of fracture fragments. Evaluation for joint alignment is limited due to fracture and positioning on x-ray. Evaluation for radial and ulnar fracture also limited but given this limitation no fracture of either radius or ulna can be visualized. WSN: [id number] Ordering Physician: Eli Hobson Dictated By: Baljinder Powell MD Dictated Date/Time: 01/31/23 8:30 pm Reviewed By: Baljinder Powell MD Signed By: Baljinder Powell MD Signed Date/Time: 01/31/23 8:30 pm Transcribed By: WILIAM Transcribed Date/Time: 01/31/23 8:27 pm * Exam Date Time Procedure Performing Provider Status 01/31/23 8:24 PM Humerus Min 2 Views Left Becky Robertson nna; Auth (Verified) Notes: (Humerus Min 2 Views Left) Reason For Exam: with Pain;Trauma RESULT: Humerus Min 2 Views Left Humerus Min 2 Views Left CLINICAL INDICATION: Hx of Present Illness: pt was seen at hospital in [place] 2 days ago and seen for open fx of L humerus, was splinted and given sling there, was told to follow up w orthopedic surgery there on 02 07 but pt came back to [place] and wants to get surgery done here, pain controlled w oxy; Reason: Trauma; with Pain; Clinical Question(s): Fracture COMPARISONS: None TECHNIQUE: AP and lateral views of the left humerus were obtained. FINDINGS: The distal left humerus is shattered into more than half a dozen pieces which are widely .Articular surface of the distal humerus and the elbow joint space are grossly disrupted making evaluation for alignment difficult. No proximal humerus fracture or shoulder dislocation. No retained foreign body. IMPRESSION: Shattered distal humerus and grossly disrupted elbow joint. Limited evaluation for radial head and proximal ulnar fractures due to positioning. WSN: [id number] Ordering Physician: Eli Hobson Dictated By: Baljinder Powell MD Dictated Date/Time: 01/31/23 8:27 pm Reviewed By: Baljinder Powell MD Signed By: Baljinder Powell MD Signed Date/Time: 01/31/23 8:27 pm Transcribed By: WILIAM Transcribed Date/Time: 01/31/23 8:25 pm Vital Signs Most recent to oldest [Reference Range]: 1 2 3 Height 170 cm (01/31/23 4:23 PM) Oxygen Saturation [94-100 %] 99 % (01/31/23 7:07 PM) 96 % (01/31/23 4:23 PM) Pulse Rate [55-90 bpm] 66 bpm (01/31/23 7:07 PM) 78 bpm (01/31/23 4:23 PM) Blood Pressure [90-138/55-84 mm Hg] 172/107mm Hg *H* (01/31/23 7:07 PM) 162/101mm Hg *H* (01/31/23:23 PM) Respiratory Rate [16-30 br/min] 18 br/min (01/31/23 8:15 PM) 18 br/min (01/31/23 7:07 PM) 18 br/min (01/31/23 4:23 PM) Temperature [96.8-100.4 DegF] 98.4 DegF (01/31/23 7:07 PM) 98.4 DegF (01/31/23 4:23 PM) Mode of Delivery (Oxygen) Room air (01/31/23 7:07 PM) Room air (01/31/23:23 PM) Blood pressure sites Arm, right (01/31/23 7:07 PM) Arm, right (01/31/23 4:23 PM) Temperature Route Oral (01/31/23 7:07 PM) Oral (01/31/23:23 PM) Dry Weight 82 kg (01/31/23 4:23 PM) Dry Weight Obtained Via Patient/family s tated (01/31/23 4:23 PM) Consult note * Rossy Cervantes: PERFORM Event Display: Consultation Note Authored Date: Patient: ??LEV MAST TAYLOR ? Age:??52 Years?Sex:??Male?:??1970?? Chief Complaint/Reason for Consult Left distal humerus fracture History of Present Illness Taylor??is a 52-year-old right-handed male who [place] [facility]with a known left??distal humerus fracture??that occurred 2 days ago. 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 ??He does endorse head strike??but denies LOC. ??He felt??directly onto the left elbow.?? Patient was seen??at [facility] where he hada trauma work-up which was negative??for other pathology besides left distal humerus??fracture.?? We were not able to obtain records??but noted he is on Keflex,??first thought to be an open fracture??but further examination revealed??superficial abrasions over the posterior??brachium.?? Patient denies any numbness and tingling. ??He has been splinted at the outside hospital.?? He is here to establish care.?? Orthopedic service was consulted treatment conditions. Review of Systems Denies fevers, chills or sweats. ??Denies chest pain. ??Denies other injuries or painful joints. ??All others as per HPI Physical Exam Vitals & Measurements T:??98.4?F?? HR:??66??(Peripheral)?? RR:??18?? BP:??172/107?? SpO2:??99%?? HT:??170??cm?? Physical exam: Patient is well-developed and in no acute distress. ??Alert and cooperative with examination. ??Mood and affect appropriate. ??Examined on a stretcher in the emergency department. ?? HEENT: Atraumatic, normocephalic Cardiac: Per medical team Pulmonary: Per medical team.?? Abdomen: Soft, nontender, nondistended. ?? Right upper extremity: Full, supple, nonpainful range of motion of shoulder, elbow, wrist and digits. ??No tenderness to palpation. ??Grossly neurovascularly intact radial, median, ulnar nerve distributions. ?? Left upper extremity: Full, supple, nonpainful range of motion of wrist and digits, digits with moderate edema, neurovascularly intact to m/u/r nerve innervations with 5/5 sensorimotor exam. Patient able to mobilize the shoulder with assistance secondary to elbow pain. The posterior splint was removed, padded was split over the posterior elbow to reveal a 3cm abrasion over the distal humerus, no active bleeding was encountered, the wound appears superficial. new DSD applied, new posterior splint applied.? Right lower extremity: Full, supple, non-painful range of motion of the hip, knee, foot and ankle. ??No tenderness to palpation. ??Calf supple and nontender. Active dorsiflexion and plantar flexion strength. ??Grossly neurovascularly intact. ?? Left lower extremity: Full, supple, non-painful range of motion of the hip, knee, foot and ankle. ??No tenderness to palpation. ??Calf supple and nontender. Active dorsiflexion and plantar flexionstrength. ??Grossly neurovascularly intact. Assessment/Plan Left supracondylar humerus fracture (S42.412A):??Status post splinting, outpatient surgery ?? Plan: Patient is discharged home from the emergency department with follow-up instructions given. ??Patient is instructed in strict nonweightbearing status, gentle active digital range of motion and elevation. ??Splint is to remain clean, dry and intact until follow-up appointment at [facility]. ??Patient instructed to call [phone] to schedule follow-up appointment. ??Questions are asked and answered. ??Discussed need for outpatient surgical fixation.?? 2 view radiographs ?? Problem List/Past Medical History hypertension Procedure/Surgical History ex lap Home Medications percocet, keflex - no baseline meds Allergies No Known Medication Allergies Social History Denies tobacco, alcohol and drug use. is right hand dominant. Lives at home with significant other and child. 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 Family History Denies history of adverse reaction to anesthesia, bleeding dyscrasias, DVT. Patient Instructions DIAGNOSIS: Left elbow fracture ?? TEST RESULTS: ?? LEFT ARM X-ray: Shattered distal humerus and grossly disrupted elbow joint. Limited evaluation for radial head and proximal ulnar fractures due to positioning. ? Your specific PATIENT CARE INSTRUCTIONS (what to do / when to return): Call the [facility] office first thing in the morning Take the antibiotic as prescribed until completed Take the pain medication??as needed??as prescribed, do not drive when taking this medication ? MEDICATIONS (what medications you should start (or stop) taking): [facility] 2 view radiographs of the left humerus and left elbow reviewed by myself demonstrating comminuted, displaced fracture of the distal humerus. ?? CT of the arm was obtained with the above-noted fracture.?? 3D reconstruction was obtained for preoperative planning. Lab Results Labs Last 24 Hours No qualifying data available. Note * Perla PATTERSON, Evelyn Pacheco: PERFORM Event Display: Patient Education Leaflets Authored Date: [id number] Elbow Fracture ?? [id number] Fractura de codo Tiene iraida quebradura (fractura) en luther o m??s huesos de franco articulaci??n del codo. Puede tratarse de iraida junior??a grieta (fisura) en el hueso. O puede ser algo m??s jimbo, con partes rotas que se salen de franco posici??n normal. Esta fractura suele arlyn entre 4 y 12 semanas en sanar, seg??n el tipo. El primer paso del tratamiento es colocarle iraida f??dara o un yeso. En las fracturas graves, se necesita cirug??a para que los fragmentos del hueso vuelvan a estar en franco lugar. Un cirujano ortopedista realiza esta cirug??a. Es un cirujano que se especializa en tratar problemas de los huesos, los m??sculos, las articulaciones y los tendones. Cuidados en el hogar Siga estos consejos para franco cuidado en el hogar: ??? Mantenga el brazo en alto para reducir el dolor y la hinchaz??n. Cuando est?? sentado o acostado, mantenga el brazo elevado por encima del nivel de franco coraz??n. Para eso, puede colocar franco brazo sobre un coj??n apoyado sobre franco pecho; o vicente, puede colocarlo sobre un coj??n a franco lado. Es muy importante que maddie esto aurora los primeros dos d??as (48 horas) despu??s del momento de la lesi??n. ??? Coloque iraida compresa de hielo sobre la ata lesionada. H??reginaldo aurora 20 minutos cada iraida o dos horas el primer d??a. Puede preparar iraida bolsa de hielo colocando los cubos en iraida bolsa de pl??stico envuelta en iraida toalla delgada. Tenga cuidado que no se moje el yeso o f??dara a medida que se derrita el hielo. Puede colocar la compresa de hielo dentro del cabestrillo y directamente sobre la f??dara o el yeso. Siga usando la compresa de hielo yahir o cuatro veces al d??a aurora los dos d??as siguientes. Luego siga utilizando las bolsas de hielo para calmar el dolor y la hinchaz??n seg??n sea necesario. ??? Mantenga la f??dara o el yeso completamente secos en todo momento. Cuando se duche o se ba??e, proteja la f??dara o el yeso para que no se mojen. C??bralo con iraida bolsa pl??stica jimbo, cerrada con iraida goma el??stica o con cinta adhesiva en la parte superior. Si la f??dara de fibra de hebert o el yeso se humedecen, puede secarlos con un secador de nani a temperatura fr??a. ??? Puede usar paracetamol o ibuprofeno para controlarel dolor, a menos que le hayan recetado otro medicamento para calmar el dolor. Si tiene iraida enfermedad cr??toña renal o hep??doyle, consulte con franco proveedor antes de arlyn estos medicamentos. Tambi??n hable con franco proveedor si tiene iraida ??lcera de est??german o hemorragia gastrointestinal. ??? No ponga cremas ni objetos dentro del yeso si le pica. ?? Visitas de control Programe iraida visita de control con franco proveedor de atenci??n m??dica en iraida semana, o seg??n le hayan aconsejado. Es para asegurarse de que el hueso est?? recuper??ndose vicente. Si le colocaron iraida f??dara, quiz??s se la cambien por un yeso en la pr??xima visita de control. Podr??an hacerle iraida radiograf??a. Le informar??n de los nuevos resultados que puedan afectar la atenci??n m??dica que necesita. ?? Cu??ndo debe buscar atenci??n m??dica Llame a franco proveedor de atenci??n m??dica de inmediato si presenta alguno de estos s??ntomas: ??? El yeso o la f??dara se agrietan ??? El yeso o la f??dara se humedecen o se ablandan ??? La f??dara oel yeso de fibra de hebert permanecen h??medos por m??s de 24 horas ??? Siente dolor debajo del yeso o la f??dara, o siente que el yeso o la f??dara le quedan m??s ajustados ??? Siente mal olor que viene del yeso o el l??quido de la herida neisha el yeso. ??? Se le hinchan los dedos, los siente fr??os o entumecidos, se raymundo azulados o siente cosquilleo en jeff ata ??? No puede piano mover los dedos ??? La piel alrededor del yeso se ve enrojecida ??? Fiebre de 100.4?F (38?C) o m??s pepe, o seg??nle indique franco proveedor de atenci??n m??dica.? Escalofr??os ?? Last Reviewed Date: 2018 ?? [id number] [employer]. Todos los derechos reservados. Esta informaci??n no pretende sustituir la atenci??n m??dica profesional. S??lo franco m??dico puede diagnosticar y tratar un problema de jac. ?? 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
[2023-05-16 01:25] LABS: MANUAL DIFF FLAG NO
[2023-05-16 01:26] LABS: Basophils Percent Auto 0.1 % (0-2); Eosinophils Absolute Auto 0.1 X10*3/uL (0.0-0.4); Eosinophils Percent Auto 0.6 % (0-4); Hematocrit 46.6 % (42.0-52.0); Hemoglobin 15.7 g/dl (14.0-18.0); Imm Gran Abs Auto 0.02 X10*3/uL (0.00-0.03); Imm Gran Pct Auto 0.2 % (0.0-0.4); Lymphocytes Absolute Auto 1.2 X10*3/uL (1.2-4.9); Lymphocytes Percent Auto 14.6 % (20-40); Mean Corpuscular HGB Conc 33.7 g/dl (31.0-36.0); Mean Corpuscular Hemoglobin 29.1 pg (27.0-33.0); Mean Corpuscular Volume 86.3 fL (80.0-98.0); Mean Platelet Volume 9.6 fL (9.4-12.4); Monocytes Absolute Auto 0.7 X10*3/uL (0.1-1.2); Neutrophils Absolute Auto 6.2 x10*3/uL (2.0-8.3); Neutrophils Percent Auto 76.5 % (45-73); Platelet Count 333 X10*3/uL (160-400); Red Cell Distribution Width 13.1 % (11.0-16.0); White Blood Count 8.2 X10*3/uL (4.8-10.8)
[2023-05-16 01:28] LABS: Appearance Urine Clear; Color Urine Yellow; Glucose Urine UA Negative (Negative); Leukocyte Esterase Urine Negative (Negative); Nitrite Urine Negative (Negative); Specific Gravity - Urine 1.025 (1.005-1.025); UMIC TRIGGER UACC YES; Urine Blood Small (1+) (Negative); Urine Ketones 15 mg/dL (Negative); Urine Protein Negative (Neg-Trace)
[2023-05-16 01:33] LABS: Bacteria Urine None Seen (None Seen); Hyaline Casts Urine 0-2 /LPF (0-2); Squamous Epithelial Cell Urine 0-2 /HPF (0-2); WBC Urine 0-5 /HPF (0-5)
[2023-05-16 01:40] LABS: Alanine Aminotransferase 22 U/L (0-40); Albumin Level 4.2 g/dL (3.5-5.0); Alkaline Phosphatase 123 U/L (39-117); Anion Gap 14 (12-20); Aspartate Amino Transferase 15 U/L (5-37); Bilirubin Total 0.6 mg/dL (0.0-1.0); Blood Urea Nitrogen 17 mg/dL (9-16); Calcium 9.6 mg/dL (8.4-10.2); Carbon Dioxide 24 mmol/L (22-29); Chloride 105 mmol/L (96-108); Estimated Glomerular Filt Rate > 60; Glucose Random 111 mg/dL (60-115); Potassium 3.7 mmol/L (3.3-5.1); Sodium 139 mmol/L (135-145)
[2023-05-16 02:44] VITALS: BP 140/87; PULSE 88; RESP 17; TEMP 36.6; O2SAT 96
--- NOTE | 2023-05-16 02:56 | ED_ITS ---
HPI - Nausea/Vomiting/Diarrhea General Chief complaint: Nausea/Vomiting/Diarrhea Stated complaint: nausea Time Seen by Provider: 05/16/23 02:48 Source: patient and old records reviewed Mode of arrival: ambulatory Limitations: no limitations History of Present Illness HPI Narrative: 53 yo male with PMH of HTN, recent admit for SBO 05/12 but DC same day hx of ex lap here with c/o eating bbq chicken at 5pm now having heartburn. He has no vomiting, he is passing gas and having BM. He has mild upper abdominal pain that passed. MD elicited complaint: other (heartburn) Pertinent past history: bowel obstruction Onset (ago): day(s) (5pm yesterday ) Associated nausea: Yes Associated abdominal pain: Yes Location of pain: epigastric Pain consistency: other (improved) Severity: mild Quality: other (burning) Exacerbating factors: eating Relieving factors: none Context: history of abdominal surgery Associated symptoms: denies other symptoms Related Data Home Medications Medication Instructions Recorded Confirmed sertraline 100 mg tablet 150 mg PO BEDTIME 03/31/22 05/12/23 acetaminophen 650 mg 650 mg PO Q8H PRN Pain 05/12/23 05/12/23 tablet,extended release losartan 25 mg tablet 25 mg PO DAILY 05/12/23 05/12/23 oxycodone 5 mg tablet 5 mg PO TID PRN pain 05/12/23 05/12/23 tramadol 50 mg tablet 50 mg PO QID PRN pain 05/12/23 05/12/23 Previous Rx's Medication Instructions Recorded albuterol sulfate 90 mcg/actuation 2 puff inhalation Q6H PRN 07/14/22 aerosol inhaler shortness of breath or wheezing #6.7 grams cholecalciferol (vitamin D3) 25 25 mcg PO DAILY 90 days #90 caps 01/30/23 mcg (1,000 unit) capsule bdxhmktk-usrkdctqz-mibewosec 3.5 4 drp otic (ears) Q8H #10 mL 04/06/23 mg-10,000 unit/mL-1 % ear drops,susp docusate sodium 100 mg capsule 100 mg PO DAILY #30 caps 05/12/23 (Colace) sennosides 8.6 mg capsule (senna) 8.6 mg PO BEDTIME PRN constipation 05/12/23 #30 caps famotidine 20 mg tablet (Pepcid) 20 mg PO BID PRN abdominal 05/16/23 discomfort #60 tabs lidocaine 5 % topical cream 1 appl topical BID PRN pain #28.35 05/16/23 grams losartan 25 mg tablet 25 mg PO DAILY #30 tabs 05/16/23 Allergies Allergy/AdvReac Type Severity Reaction Status Date / Time No Known Allergies Allergy Verified 05/11/23 20:43 Review of Systems 2 Review of Systems: Constitutional : No Weight loss, No Fever, No Chills ENT/Mouth : No sore throat, No Rhinorrhea Eyes: No Swelling, No Redness Cardiovascular : No Chest Pain, No SOB, NoEdema Respiratory : No Cough, No Sputum, No Wheezing Gastrointestinal : Positive Nausea, no Vomiting, no Diarrhea, positive abdominal Pain, No Hematochezia, No Melena Genitourinary : No Dysuria, No Urinary Frequency, No Hematuria, No Urgency Musculoskeletal : No joint pain, No Myalgias, No Joint Swelling Skin : No Skin Lesions, No rash Neuro : No Weakness, No Numbness, No Dizziness, No Headache Psych : No Anxiety/Panic, No Depression All other systems reviewed and are negative. Gastrointestinal: Gastrointestinal: Reports nausea PMFSH Past Medical History Attestation statement: The following information was validated with the patient. Source: old records reviewed Medical History History of small bowel obstruction Elevated blood pressure reading Pain management Open fracture of distal end of left humerus Cough Snoring Daytime sleepiness Witnessed apneic spells Sensation of fullness in both ears Acquired generalized premature ejaculation Hospital discharge follow-up Obesity due to excess calories Change in mole Pharyngitis Loud snoring Colon cancer screening Change in mole Establishing care with new doctor, encounter for History of changing skin mole Obesity Mass of abdomen Swelling Toenail deformity Multiple complaints High cholesterol Hypertension Surgical History Hx laparoscopic cholecystectomy History of esophagogastroduodenoscopy (EGD) Family History Family History Father Hypertension Diabetes Social History Social History Household Members: Family Housing: Apartment Do you presently have visiting nurse or other home services: No Alcohol intake: never Patient Tobacco Use Status: Never used Tobacco e-Cigarette/Vaping Use: Never Used Second Hand Smoke Exposure: No Advance Directives: No Advance Directives Information Provided: Yes service: No Current occupational status: unemployed Cognitive needs: No Hearing needs: No Vision needs: Yes Physical Exam 2 Vital Signs: Vital Signs: Last Vital Signs Temp 97.8 F 05/16/23 02:44 Pulse 88 05/16/23 02:44 Resp 17 05/16/23 02:44 BP 140/87 H 05/16/23 02:44 Pulse Ox 96 05/16/23 02:44 O2 Del Method Room Air 05/16/23 02:44 BMI result Body Mass Index 30.9 Appearance: Alert. Oriented X3. No acute distress. Eyes: Pupils equal, round and reactive to light. ENT: Pharynx normal. Neck: Normal inspection. Neck supple. CVS: Normal heart rate and rhythm. Pulses normal. Respiratory: No respiratory distress. Breath sounds normal. Abdomen: Soft and nontender. no distention Skin: Skin warm and dry. Normal skin color. Normal skin turgor. Extremities: No lower extremity edema. No calf ttp Neuro: Oriented X 3. No motor deficit. No sensory deficit. Course Course Course Narrative: symptoms resolved feels much better Medications Administered Discontinued Medications Generic Name Dose Route Start Last Admin Trade Name Raimundo PRN Reason Stop Dose Admin Al Hydroxide/Mg Hydroxide 15 ml 05/16/23 03:07 05/16/23 03:32 Magnesium Hydrox/Alum Hydrox 30 Ml Oral.Susp PO 05/16/23 03:08 15 ml ONCE ONE Administration Famotidine 20 mg 05/16/23 03:07 05/16/23 03:32 Famotidine 20 Mg Tablet PO 05/16/23 03:08 20 mg ONCE ONE Administration Lidocaine HCl 15 ml 05/16/23 03:07 05/16/23 03:32 Lidocaine Hcl Viscous 2 % 15 Ml Solution MUCOUS MEM 05/16/23 03:08 15 ml ONCE ONE Administration Medical Decision Making Medical Decision Making MDM Narrative: 53 yo male with PMH of HTN, recent admit for SBO 05/12 but DC same day hx of ex lap here with c/o acid and heartburn after eating chicken with bbq sauce for dinner he has benign abdominal exam no vomiting he is having BM and is passing gas. Not consistent with SBO. At this time will need PO medications and reassess. Clinically doubt SBO Differential Diagnosis Differential Diagnoses: The differential diagnosis associated with the presentation includes gastritis, GERD Admission/Observation Consideration of admission/observation: Escalation of care including admission/observation considered symptoms resolved after GI cocktail wants to go home Lab Data MDM Lab Attestation statement: I reviewed the patient's lab results. 05/16/23 01:17 05/16/23 01:17 Labs: Lab Results 05/16/23 Range/Units 01:17 WBC 8.2 (4.8-10.8) X10*3/uL RBC 5.40 (4.60-5.80) X10*6/uL Hgb 15.7 (14.0-18.0) g/dl Hct 46.6 (42.0-52.0) % MCV 86.3 (80.0-98.0) fL MCH 29.1 (27.0-33.0) pg MCHC 33.7 (31.0-36.0) g/dl RDW 13.1 (11.0-16.0) % Plt Count 333 (160-400) X10*3/uL MPV 9.6 (9.4-12.4) fL Immature Gran % (Auto) 0.2 (0.0-0.4) % Neut % (Auto) 76.5 H (45-73) % Lymph % (Auto) 14.6 L (20-40) % [place] % (Auto) 8.0 (2-11) % Eos % (Auto) 0.6 (0-4) % Baso % (Auto) 0.1 (0-2) % Lymph # (Auto) 1.2 (1.2-4.9) X10*3/uL [place] # (Auto) 0.7 (0.1-1.2) X10*3/uL Eos # (Auto) 0.1 (0.0-0.4) X10*3/uL Baso # (Auto) 0.0 (0.0-0.2) X10*3/uL Abs Immat Gran (auto) 0.02 (0.00-0.03) X10*3/uL Absolute Neuts (auto) 6.2 (2.0-8.3) x10*3/uL Absolute Nucleated RBC 0.000 (0.0-0.012) X10*3/uL Nucleated RBC % (auto) 0.0 (0.0-0.2) /100WBC Sodium 139 (135-145) mmol/L Potassium 3.7 (3.3-5.1) mmol/L Chloride 105 (96-108) mmol/L Carbon Dioxide 24 (22-29) mmol/L Anion Gap 14 (12-20) BUN 17 H (9-16) mg/dL Creatinine 0.97 (0.5-1.4) mg/dL Estim Creat Clear Calc 94.0 Estimated GFR > 60 Random Glucose 111 (60-115) mg/dL Calcium 9.6 (8.4-10.2) mg/dL Total Bilirubin 0.6 (0.0-1.0) mg/dL AST 15 (5-37) U/L ALT 22 (0-40) U/L Alkaline Phosphatase 123 H (39-117) U/L Total Protein 8.0 (6.5-8.0) g/dL Albumin 4.2 (3.5-5.0) g/dL Urine Color Yellow Urine Appearance Clear Urine pH 6.0 (5.0-9.0) Ur Specific [place] 1.025 (1.005-1.025) Urine Protein Negative (Neg-Trace) mg/dL Urine Glucose (UA) Negative (Negative) mg/dL Urine Ketones 15 (Negative) mg/dL Urine Blood Small (1+) H (Negative) Urine Nitrite Negative (Negative) Ur Leukocyte Esterase Negative (Negative) Urine RBC 6-10 H (0-2) /HPF Urine WBC 0-5 (0-5) /HPF Ur Squamous Epith Cells 0-2 (0-2) /HPF Urine Bacteria None Seen (None Seen) Hyaline Casts 0-2 (0-2) /LPF External Record Review External record reviewed: Inpatient record Prescription Management I considered prescription management with: Other Discharge Plan Discharge Clinical Impression: Medication refill GERD with esophagitis Qualifiers: Esophagitis bleeding: without hemorrhage Qualified Code(s): K21.00 - Gastro- esophageal reflux disease with esophagitis, without bleeding Patient Disposition: Home, Self-Care Instructions: Diet for Stomach Ulcers and Gastritis (ED), Gastroesophageal Reflux Disease (ED), Medicine Refill (ED) Additional Instructions: eat a bland diet. return if you have worsening pain, inability to pass gas or have a bowel movement. follow up with your doctors as scheduled. comer iraida dieta blanda. regrese si franco dolor empeora, incapacidad para expulsar gases o defecar. maddie un seguimiento con alla m?dicos seg?n lo programado. Prescriptions: New famotidine [Pepcid] 20 mg tablet 20 mg PO BID PRN (Reason: abdominal discomfort) Qty: 60 0RF losartan 25 mg tablet 25 mg PO DAILY Qty: 30 0RF lidocaine 5 % cream 1 appl topical BID PRN (Reason: pain) Qty: 28.35 0RF No Action oxycodone 5 mg tablet 5 mg PO TID PRN (Reason: pain) tramadol 50 mg tablet 50 mg PO QID PRN (Reason: pain) acetaminophen 650 mg Tablet Extended Release 650 mg PO Q8H PRN (Reason: Pain) losartan 25 mg tablet 25 mg PO DAILY docusate sodium [Colace] 100 mg capsule 100 mg PO DAILY Qty: 30 0RF senna 8.6 mg capsule 8.6 mg PO BEDTIME PRN (Reason: constipation) Qty: 30 0RF albuterol sulfate 90 mcg/actuation HFA aerosol inhaler 2 puff inhalation Q6H PRN (Reason: shortness of breath or wheezing) Qty: 6.7 0RF cholecalciferol (vitamin D3) 25 mcg (1,000 unit) capsule 25 mcg PO DAILY 90 Days Qty: 90 0RF mnyybmow-lsapjcfcd-RI 3.5-10,000-1 mg/mL-unit/mL-% drops,suspension 4 drp otic (ears) Q8H Qty: 10 0RF sertraline 100 mg tablet 150 mg PO BEDTIME Print Language: Hungarian
[2023-05-16] MEDS: Lidocaine HCl Viscous 2 % 15 ML SOLUTION MUCOUS MEM (03:32)
[2023-05-16] MEDS: Magnesium Hydrox/Alum Hydrox 30 ML ORAL.SUSP 15 ML PO (03:32)
[2023-05-16] MEDS: Famotidine 20 MG TABLET PO (03:32)
[2023-05-16 04:00] VITALS: BP 134/93; PULSE 81; RESP 18; TEMP 36.6; O2SAT 96
== END 2023-05-16 04:57 | disposition home or self-care (01) ==
PROVIDERS: Emergency Provider Emergency Medicine
DX: K21.00 Gastro-esophageal reflux disease with esophagitis, without bleeding (principal); I10 Essential (primary) hypertension; E78.00 Pure hypercholesterolemia, unspecified; Z79.899 Other long term (current) drug therapy
CPT/HCPCS: 36415; 80053; 81001; 85025; 99283; 99284

== ENCOUNTER 2023-06-03 11:35 | Emergency (ER) | payer OTHER, SELFPAY ==
--- NOTE | 2023-06-03 11:56 | ED.GENADULT ---
HPI - General Adult General Chief complaint: General Medical Stated complaint: Sore throat Time Seen by Provider: 06/03/23 12:35 Source: patient Mode of arrival: ambulatory Limitations: no limitations History of Present Illness HPI narrative: 53 yo male w/ hx of DARREL, HTN, partial SBO (admit on 05/12), ventral hernia, GERD here with complaints of sore throat, productive cough x 1 days. Daughter has flu and strep at home. No fevers, chills, headache, neck pain, neck stiffness, chest pain, shortness of breath, abdominal pain, vomiting, diarrhea, skin rash, urinary symptoms. Related Data Home Medications Medication Instructions Recorded Confirmed sertraline 100 mg tablet 150 mg PO BEDTIME 03/31/22 05/12/23 acetaminophen 650 mg 650 mg PO Q8H PRN Pain 05/12/23 05/12/23 tablet,extended release losartan 25 mg tablet 25 mg PO DAILY 05/12/23 05/12/23 oxycodone 5 mg tablet 5 mg PO TID PRN pain 05/12/23 05/12/23 tramadol 50 mg tablet 50 mg PO QID PRN pain 05/12/23 05/12/23 Previous Rx's Medication Instructions Recorded albuterol sulfate 90 mcg/actuation 2 puff inhalation Q6H PRN 07/14/22 aerosol inhaler shortness of breath or wheezing #6.7 grams cholecalciferol (vitamin D3) 25 25 mcg PO DAILY 90 days #90 caps 01/30/23 mcg (1,000 unit) capsule kjjsochs-xmaoijlou-kxweumhbz 3.5 4 drp otic (ears) Q8H #10 mL 04/06/23 mg-10,000 unit/mL-1 % ear drops,susp docusate sodium 100 mg capsule 100 mg PO DAILY #30 caps 05/12/23 (Colace) sennosides 8.6 mg capsule (senna) 8.6 mg PO BEDTIME PRN constipation 05/12/23 #30 caps famotidine 20 mg tablet (Pepcid) 20 mg PO BID PRN abdominal 05/16/23 discomfort #60 tabs lidocaine 5 % topical cream 1 appl topical BID PRN pain #28.35 05/16/23 grams losartan 25 mg tablet 25 mg PO DAILY #30 tabs 05/16/23 Allergies Allergy/AdvReac Type Severity Reaction Status Date / Time No Known Allergies Allergy Verified 06/03/23 11:56 Review of Systems Review of Systems: Yes all other systems are reviewed and are negative Constitutional: Constitutional: Reports no additional constitutional complaints, Denies body ache(s), Denies chills, Denies fever(s), Denies headache(s) and Denies weakness Eyes: Eyes: Reports no additional eye complaints and Denies change in vision ENT: Reports system reviewed and no additional complaints, except as documented, Denies dizziness, Denies headache(s), Denies nasal congestion, Denies nasal discharge, Denies neck pain and Reports sore throat Cardiovascular: Cardiovascular: Reports no additional cardiovascular complaints, Denies chest pain, Denies leg edema and Denies dyspnea Respiratory: Respiratory: Reports no additional respiratory complaints, Reports cough and Denies dyspnea Gastrointestinal: Gastrointestinal: Reports no additional gastrointestinal complaints, Denies abdominal pain, Denies diarrhea, Denies nausea and Denies vomiting Genitourinary: Genitourinary: Denies urinary incontinence Musculoskeletal: Musculoskeletal: Reports no additional musculoskeletal complaints, Denies back pain, Denies arthralgias, Denies joint swelling, Denies neck pain, Denies numbness and Denies tingling Integumentary/Breasts: Skin/Breast: Reports system reviewed and no additional complaints, except as docu and Denies rash Neurologic: Reports system reviewed and no additional complaints, except as documented, Denies Abnormal speech present, Denies dizziness, Denies headache(s), Denies numbness, Denies tingling and Denies weakness PMFSH Past Medical History Attestation statement: The following information was validated with the patient. Source: old records reviewed and nursing notes reviewed Medical History History of small bowel obstruction Elevated blood pressure reading Pain management Open fracture of distal end of left humerus Cough Snoring Daytime sleepiness Witnessed apneic spells Sensation of fullness in both ears Acquired generalized premature ejaculation Hospital discharge follow-up Obesity due to excess calories Change in mole Pharyngitis Loud snoring Colon cancer screening Change in mole Establishing care with new doctor, encounter for History of changing skin mole Obesity Mass of abdomen Swelling Toenail deformity Multiple complaints High cholesterol Hypertension Surgical History Hx laparoscopic cholecystectomy History of esophagogastroduodenoscopy (EGD) Family History Family History Father Hypertension Diabetes Social History Social History Household Members: Family Housing: Apartment Do you presently have visiting nurse or other home services: No Alcohol intake: never Patient Tobacco Use Status: Never used Tobacco Smoked in Last 30 Days: No e-Cigarette/Vaping Use: Never Used Second Hand Smoke Exposure: No Use of substances other than those prescribed or required for medical reasons: No Advance Directives: No Advance Directives Information Provided: No service: No Current occupational status: unemployed Cognitive needs: No Hearing needs: No Vision needs: Yes Physical Exam ED Vital Signs: Vital Signs - 24 hr 06/03/23 11:57 06/03/23 12:09 06/03/23 13:22 Temperature 98.9 F 97 F 96.9 F Pulse Rate 94 94 86 Respiratory Rate 14 16 17 Blood Pressure 135/76 135/76 137/92 H Pulse Oximetry 98 98 96 Oxygen Delivery Method Room Air Room Air Room Air BMI result Body Mass Index 33.1 Const General: cooperative, healthy appearing, comfortable and no acute distress Orientation/consciousness: patient oriented x3 Limitations: no limitations HENMT Head: Yes normal to inspection Ears: hearing grossly normal bilaterally and TM's normal bilaterally General nose exam: Normal external nose present Face and sinus: Yes normal facial exam Mouth: Normal oral and palatal mucosa present Throat: Yes posterior oropharynx normal, Yes tonsils normal and Yes uvula midline Eyes General: appearance normal, both eyes and all related structures Pupils: Equal, round and reactive pupils present Neck Neck: Yes normal visual inspection, Yes full ROM, Yes no lymphadenopathy and Yes no meningeal signs Chest Chest palpation & inspection: normal inspection of the chest Resp Effort & Inspection: normal respiratory effort Auscultation: clear to auscultation bilaterally Cardio Rate: regular rate Rhythm: regular rhythm Peripheral pulses: Peripheral pulses 2+ throughout GI Inspection: Yes normal to inspection Palpation (GI): Soft to palpation and nontender Auscultation: normal bowel sounds Back/Spine/Pelvis Thoracic/Lumbar Spine: thoracic and lumbar spine normal to inspection Skin General skin exam: no rashes or lesions noted Neuro General: patient oriented x3, no meningeal signs, no focal motor deficits and normal sensation to monofilament Cranial nerves: Yes Equal, round and reactive pupils present Cognition (Neuro): normal cognition Speech: No Abnormal speech present Gait exam (Neuro): Normal gait present Motor exam (neuro): 5/5 motor strength present throughout Extrem General: Yes normal to inspection, Yes no pedal edema and Yes no calf tenderness Course Course Course Narrative: RME:?53 yo male hx of DARREL, HTN, partial SBO (admit on 05/12), ventral hernia, GERD here for eval of sore throat, cough with yellow sputum production x this morning. daughter at home tested positive for strep and influenza A 2 days ago. denies fever or chills, dysphagia. no tonsillar exudates. controlling secretions and speaking in complete sentences. labs ordered Full HPI, ROS and PE to be performed by the primary ED provider. Reevaluation(s) Reevaluation #1: viral and strep testing are negative. Exam is not consistent with strep pharyngitis. Recommend supportive care for viral syndrome. Reviewed worrisome signs and symptoms of when to return to the emergency room. Comfortable plan for discharge home Medical Decision Making Medical Decision Making MDM Narrative: 53 yo male w/ hx of DARREL, HTN, partial SBO (admit on 05/12), ventral hernia, GERD here with complaints of sore throat, productive cough x 1 days. Daughter has flu and strep at home. No fevers, chills, headache, neck pain, neck stiffness, chest pain, shortness of breath, abdominal pain, vomiting, diarrhea, skin rash, urinary symptoms. Exam is benign. Vitals stable. Will send viral testing, strep testing Differential Diagnosis Differential Diagnoses: The differential diagnosis associated with the presentation includes viral syndrome, influenza Low concern for strep pharyngitis, RPA, ADMISSION DISCHARGE RN, epiglottitis, Mike's angina Admission/Observation Consideration of admission/observation: Escalation of care including admission/observation considered Lab Data [facility] Lab Attestation statement: I reviewed the patient's lab results. Labs: Lab Results 06/03/23 Range/Units 12:17 Influenza Type A (PCR) NEGATIVE (Negative) Influenza Type B (PCR) NEGATIVE (Negative) RSV RNA Qual (PCR) NEGATIVE (Negative) SARS-CoV-2 RNA (RT-PCR) NEGATIVE (Negative) S. pyogenes GrpA JAMEEL Negative (Negative) Tests considered The following testing was considered but not selected: no hypoxia or tachypnea to suggest need for chest x-ray Prescription Management I considered prescription management with: Antibiotic Discharge Plan Discharge Clinical Impression: Acute viral syndrome Patient Disposition: Home, Self-Care Instructions: Viral Syndrome (ED) Additional Instructions: Testing for flu, COVID, strep and RSV are negative You have a virus Take Motrin or Tylenol for any pain or fever Increase fluids, rest Prescriptions: No Action famotidine [Pepcid] 20 mg tablet 20 mg PO BID PRN (Reason: abdominal discomfort) Qty: 60 0RF losartan 25 mg tablet 25 mg PO DAILY Qty: 30 0RF lidocaine 5 % cream 1 appl topical BID PRN (Reason: pain) Qty: 28.35 0RF oxycodone 5 mg tablet 5 mg PO TID PRN (Reason: pain) tramadol 50 mg tablet 50 mg PO QID PRN (Reason: pain) acetaminophen 650 mg Tablet Extended Release 650 mg PO Q8H PRN (Reason: Pain) losartan 25 mg tablet 25 mg PO DAILY docusate sodium [Colace] 100 mg capsule 100 mg PO DAILY Qty: 30 0RF senna 8.6 mg capsule 8.6 mg PO BEDTIME PRN (Reason: constipation) Qty: 30 0RF albuterol sulfate 90 mcg/actuation HFA aerosol inhaler 2 puff inhalation Q6H PRN (Reason: shortness of breath or wheezing) Qty: 6.7 0RF cholecalciferol (vitamin D3) 25 mcg (1,000 unit) capsule 25 mcg PO DAILY 90 Days Qty: 90 0RF kgbfxdqu-vtjviurlq-QP 3.5-10,000-1 mg/mL-unit/mL-% drops,suspension 4 drp otic (ears) Q8H Qty: 10 0RF sertraline 100 mg tablet 150 mg PO BEDTIME Referrals: Physician,Unknown J [Primary Care Provider] - 1 week
[2023-06-03 11:57] VITALS: BP 135/76; PULSE 94; RESP 14; TEMP 37.2; O2SAT 98; BMI 33.1
[2023-06-03 12:09] VITALS: BP 135/76; PULSE 94; RESP 16; TEMP 36.1; O2SAT 98; BMI 33.1
[2023-06-03 12:32] LABS: IDNOW Serial# 08D9AD1C; Strep A Nucleic Acid Negative (Negative)
[2023-06-03 13:10] LABS: Influenza A PCR NEGATIVE (Negative); Influenza B PCR NEGATIVE (Negative); Resp Syncy Virus RNA Qual PCR NEGATIVE (Negative); SARS COV2 PCR INHOUSE NEGATIVE (Negative)
[2023-06-03 13:22] VITALS: BP 137/92; PULSE 86; RESP 17; TEMP 36.1; O2SAT 96
== END 2023-06-03 13:37 | disposition home or self-care (01) ==
PROVIDERS: Physician Assistant Medical; Emergency Provider Emergency Medicine
DX: J02.9 Acute pharyngitis, unspecified (principal); R05.9 Cough, unspecified; Z20.822 Contact with and (suspected) exposure to COVID-19; Z20.828 Contact with and (suspected) exposure to other viral communicable diseases
CPT/HCPCS: 0241U; 87651; 99283; 99284

== ENCOUNTER 2023-07-09 20:04 | Emergency (ER) | payer OTHER, SELFPAY ==
--- NOTE | ~2023-07-09 | CT_ITS ---
EXAMINATION: CT ABDOMEN AND PELVIS WITH CONTRAST CLINICAL INFORMATION: Nausea, vomiting, diarrhea, mid abdominal pain COMPARISON: 05/11/2023 TECHNIQUE: Multidetector volumetric images were obtained from the superior aspect of the liver through the pubic symphysis following administration 85 mL of Omnipaque 350 intravenous contrast. Sagittal and coronal reformatted images were obtained on the technologist's workstation. Oral contrast: No This CT examination was performed using dose optimization techniques as appropriate, variously including the following: *Automated exposure control *Adjustment of mA and/or kV according to patient size (this includes techniques or standardized protocols for targeted exams where dose is matched to indication/reason for exam; i.e. extremities or head) *Use of iterative reconstruction technique DLP: 678 mGy-cm FINDINGS: LUNG BASES: The visualized lung bases are unremarkable. LIVER, GALLBLADDER, AND BILIARY TREE: The liver is normal in size, shape, and attenuation. Redemonstrated curvilinear calcification along the lateral right hepatic lobe. No focal hepatic lesion or biliary ductal dilatation is present. The gallbladder is unremarkable with no evidence of radiopaque gallstones, gallbladder wall thickening, or obvious pericholecystic inflammatory changes. PANCREAS: Unremarkable. SPLEEN: Unremarkable. ADRENAL GLANDS: Unremarkable. KIDNEYS AND URETERS: Bilateral nephrograms are symmetric. No hydronephrosis or obstructing calculus identified. Small hypoattenuating focus in the right kidney favors a cyst; no follow-up recommended. BLADDER: Unremarkable. GASTROINTESTINAL TRACT: No evidence of bowel obstruction. No significant bowel wall thickening is seen. Fluid is present within the colon, a finding which can be associated with diarrhea. Appendix appears nondilated, without surrounding inflammation. No free fluid or free air is seen. ABDOMINAL WALL: Fat-containing supraumbilical ventral hernia. LYMPH NODES: Normal. VASCULAR: Mild atherosclerotic calcification. PELVIC VISCERA: Unremarkable. OSSEOUS STRUCTURES: Unremarkable. CT/CT abdomen pelvis w IV con IMPRESSION: Fluid within the colon, a finding which can be associated with diarrhea. No evidence of bowel obstruction. Otherwise, no acute findings identified in the abdomen/pelvis.
--- NOTE | 2023-07-09 20:28 | ED_ITS ---
HPI - General Adult General Chief complaint: Nausea/Vomiting/Diarrhea Stated complaint: n+v Time Seen by Provider: 07/10/23 00:11 Source: patient Mode of arrival: ambulatory Limitations: no limitations History of Present Illness HPI narrative: Patient is a 53-year-old male who presents emergency department for evaluation of nausea vomiting diarrhea and abdominal pain. He reports symptoms started today. He reports he has had 10 episodes of non bloody bilious emesis, at least 5 episodes of watery diarrhea. Has pain primarily to the epigastric/mid abdominal region, and abdomen feels bloated. Denies fevers, chills, recent ill contacts. Denies genitourinary symptoms Related Data Home Medications Medication Instructions Recorded Confirmed sertraline 100 mg tablet 150 mg PO BEDTIME 03/31/22 05/12/23 acetaminophen 650 mg 650 mg PO Q8H PRN Pain 05/12/23 05/12/23 tablet,extended release losartan 25 mg tablet 25 mg PO DAILY 05/12/23 05/12/23 oxycodone 5 mg tablet 5 mg PO TID PRN pain 05/12/23 05/12/23 tramadol 50 mg tablet 50 mg PO QID PRN pain 05/12/23 05/12/23 Previous Rx's Medication Instructions Recorded albuterol sulfate 90 mcg/actuation 2 puff inhalation Q6H PRN 07/14/22 aerosol inhaler shortness of breath or wheezing #6.7 grams cholecalciferol (vitamin D3) 25 25 mcg PO DAILY 90 days #90 caps 01/30/23 mcg (1,000 unit) capsule [id number] 3.5 4 drp otic (ears) Q8H #10 mL 04/06/23 mg-10,000 unit/mL-1 % ear drops,susp docusate sodium 100 mg capsule 100 mg PO DAILY #30 caps 05/12/23 (Colace) sennosides 8.6 mg capsule (senna) 8.6 mg PO BEDTIME PRN constipation 05/12/23 #30 caps famotidine 20 mg tablet (Pepcid) 20 mg PO BID PRN abdominal 05/16/23 discomfort #60 tabs lidocaine 5 % topical cream 1 appl topical BID PRN pain #28.35 05/16/23 grams losartan 25 mg tablet 25 mg PO DAILY #30 tabs 05/16/23 ondansetron 4 mg disintegrating 4 mg PO Q8H PRN nausea and 07/10/23 tablet vomiting #10 tabs Allergies Allergy/AdvReac Type Severity Reaction Status Date / Time No Known Allergies Allergy Verified 07/09/23 20:28 Review of Systems 2 Review of Systems: Yes all other systems are reviewed and are negative [facility] Past Medical History Attestation statement: The following information was validated with the patient. Source: old records reviewed Medical History History of small bowel obstruction Elevated blood pressure reading Pain management Open fracture of distal end of left humerus Cough Snoring Daytime sleepiness Witnessed apneic spells Sensation of fullness in both ears Acquired generalized premature ejaculation Hospital discharge follow-up Obesity due to excess calories Change in mole Pharyngitis Loud snoring Colon cancer screening Change in mole Establishing care with new doctor, encounter for History of changing skin mole Obesity Mass of abdomen Swelling Toenail deformity Multiple complaints High cholesterol Hypertension Surgical History Hx laparoscopic cholecystectomy History of esophagogastroduodenoscopy (EGD) Family History Family History Father Hypertension Diabetes Social History Social History Household Members: Family Housing: Apartment Do you presently have visiting nurse or other home services: No Alcohol intake: never Patient Tobacco Use Status: Never used Tobacco e-Cigarette/Vaping Use: Never Used Second Hand Smoke Exposure: No Advance Directives: No Advance Directives Information Provided: No service: No Current occupational status: unemployed Cognitive needs: No Hearing needs: No Vision needs: Yes Physical Exam ED Vital Signs: Vital Signs - 24 hr 07/09/23 20:29 07/09/23 23:05 07/10/23 00:48 Temperature 99.2 F 98.2 F 98.2 F Pulse Rate 84 82 79 Respiratory Rate 16 16 18 Blood Pressure 153/93 H 144/92 H 147/95 H Pulse Oximetry 94 98 97 Oxygen Delivery Method Room Air Room Air Room Air BMI result Body Mass Index 32.9 Appearance: Alert.?Oriented to person, place and time. No acute distress.?Normal affect. Eyes: Pupils equal, round and reactive to light.? ENT: Pharynx normal.?? Neck: Normal inspection.? Neck supple.?? CVS: Heart sounds normal. Normal heart rate and rhythm.? Pulses normal.?? Respiratory: No respiratory distress.? Lung sounds clear to auscultation bilaterally?? Abdomen: Distended, tenderness upon palpation over the epigastric/supraumbilical region. Palpable ventral hernia, manually reducible. Hypoactive bowel sounds. No pulsatile mass.?? Skin: Skin warm and dry.? Normal skin color.? Extremities: No lower extremity edema.? Neuro: Moves all extremities spontaneously. Sensation intact bilaterally. CN II- XII intact. No focal neuro deficits. Ambulates with normal steady gait. Course Course Course Narrative: RME performed by Suzanne Villanueva PA-C. Patient is a 53 year old assigned male at presenting to the emergency department with nausea and vomiting. Detailed physical exam and review of systems are deferred to the stamp pad finisher. Labs and swabs ordered. Patient placed back in the waiting room pending room availability and results. Reevaluation(s) Reevaluation #1: CBC reveals no leukocytosis or anemia. CMP is overall unremarkable, mildly elevated alkaline phosphatase consistent with prior. High sensitive troponin is below detectable levels, EKG reveals a normal sinus rhythm with ventricular rate of 87, QTC 438, no ST elevation, no ST depression, no acute ischemic findings, symptoms unlikely secondary to ACS. Viral serologies are negative. Strep a testing is negative. Urinalysis with microscopic hematuria also seen on prior urinalysis in April of 2023, no evidence of infection. CT of the abdomen and pelvis is without acute etiology, there is fluid within the colon which can be associated with diarrhea, no evidence of bowel obstruction. Suspect gastroenteritis. He is tolerating fluids and crackers at this time without complication. At this time feel that he is stable for discharge home, bland diet, encourage oral fluids, Zofran for nausea as needed and outpatient follow- up with primary care provider. Discussed strict return precautions. All questions answered. Time: 01:54 Medications Administered Discontinued Medications Generic Name Dose Route Start Last Admin Trade Name Freq PRN Reason Stop Dose Admin Famotidine 20 mg 07/10/23 00:42 07/10/23 01:19 Famotidine/Pf 20 Mg/2 Ml Vial IVPUSH 07/10/23 00:43 20 mg ONCE ONE Administration Iohexol 85 ml 07/10/23 01:11 07/10/23 01:11 Iohexol 350 Mg/Ml 100 Ml Infus..Btl IV 07/10/23 01:12 85 ml ONCE ONE Administration Ondansetron HCl 4 mg 07/10/23 00:42 07/10/23 01:19 Ondansetron Hcl 4 Mg/2 Ml Vial IVPUSH 07/10/23 00:43 4 mg ONCE ONE Administration Medical Decision Making Medical Decision Making [facility] Narrative: Patient is a 53-year-old male with past medical of DARREL, HTN, partial SBO (admit on 05/12), ventral hernia, GERD presents emergency department for evaluation nausea vomiting diarrhea and abdominal pain as per HPI. At the time my examination he appears uncomfortable, abdomen is distended and tender upon palpation. Will obtain CBC to evaluate for leukocytosis/ anemia, CMP and lipase to evaluate for abnormal electrolytes /abnormal renal function/ abnormal hepatic/biliary function, EKG and troponin to evaluate for ischemia/ACS. CT of the abdomen and pelvis and Urinalysis. Differential Diagnosis Differential Diagnoses: The differential diagnosis associated with the presentation includes (SBO, GERD, esophagitis, enteritis, PUD, viral syndrome, gastroenteritis) Admission/Observation Consideration of admission/observation: Escalation of care including admission/observation considered (See narrative above in course narrative for further detail) Lab Data [facility] Lab Attestation statement: I reviewed the patient's lab results. (See course narrative for further detail) 07/09/23 20:54 07/09/23 20:53 Labs: Lab Results 07/09/23 07/09/23 07/09/23 Range/Units 20:53 20:54 23:10 WBC 8.9 (4.8-10.8) X10*3/uL RBC 5.45 (4.60-5.80) X10*6/uL Hgb 16.3 (14.0-18.0) g/dl Hct 47.2 (42.0-52.0) % MCV 86.6 (80.0-98.0) fL MCH 29.9 (27.0-33.0) pg MCHC 34.5 (31.0-36.0) g/dl RDW 14.8 (11.0-16.0) % Plt Count 237 D (160-400) X10*3/uL MPV 9.7 (9.4-12.4) fL Immature Gran % (Auto) 0.2 (0.0-0.4) % Neut % (Auto) 88.0 H (45-73) % Lymph % (Auto) 5.6 L (20-40) % [place] % (Auto) 4.5 (2-11) % Eos % (Auto) 1.6 (0-4) % Baso % (Auto) 0.1 (0-2) % Lymph # (Auto) 0.5 L (1.2-4.9) X10*3/uL [place] # (Auto) 0.4 (0.1-1.2) X10*3/uL Eos # (Auto) 0.1 (0.0-0.4) X10*3/uL Baso # (Auto) 0.0 (0.0-0.2) X10*3/uL Abs Immat Gran (auto) 0.02 (0.00-0.03) X10*3/uL Absolute Neuts (auto) 7.8 (2.0-8.3) x10*3/uL Absolute Nucleated RBC 0.000 (0.0-0.012) X10*3/uL Nucleated RBC % (auto) 0.0 (0.0-0.2) /100WBC Sodium 141 (135-145) mmol/L Potassium 3.8 (3.3-5.1) mmol/L Chloride 107 (96-108) mmol/L Carbon Dioxide 25 (22-29) mmol/L Anion Gap 13 (12-20) BUN 17 H (9-16) mg/dL Creatinine 0.85 (0.5-1.4) mg/dL Estim Creat Clear Calc 107.0 Estimated GFR > 60 Random Glucose 106 (60-115) mg/dL Calcium 9.5 (8.4-10.2) mg/dL Magnesium 2.2 (1.6-2.6) mg/dL Total Bilirubin 1.0 (0.0-1.0) mg/dL AST 19 (5-37) U/L ALT 25 (0-40) U/L Alkaline Phosphatase 119 H (39-117) U/L Troponin I High Sens < 2.7 (<3.5-35.0) ng/L Total Protein 8.0 (6.5-8.0) g/dL Albumin 4.3 (3.5-5.0) g/dL Lipase 23 (8-78) U/L Urine Color Dark Yellow Urine Appearance Clear Urine pH 6.0 (5.0-9.0) Ur Specific [place] >= 1.030 H (1.005-1.025) Urine Protein Negative (Neg-Trace) mg/dL Urine Glucose (UA) Negative (Negative) mg/dL Urine Ketones Negative (Negative) mg/dL Urine Blood Small (1+) H (Negative) Urine Nitrite Negative (Negative) Ur Leukocyte Esterase Negative (Negative) Urine RBC 3-5 H (0-2) /HPF Urine WBC 0-5 (0-5) /HPF Ur Squamous Epith Cells 0-2 (0-2) /HPF Urine Bacteria None Seen (None Seen) Hyaline Casts 0-2 (0-2) /LPF Influenza Type A (PCR) NEGATIVE (Negative) Influenza Type B (PCR) NEGATIVE (Negative) RSV RNA Qual (PCR) NEGATIVE (Negative) SARS-CoV-2 RNA (RT-PCR) NEGATIVE (Negative) S. pyogenes GrpA JAMEEL Negative (Negative) Radiology Impression Discussion of test interpretation with radiology: I have reviewed the radiologist's reading. Radiologist Impression: CT/CT abdomen pelvis w IV con IMPRESSION: Fluid within the colon, a finding which can be associated with diarrhea. No evidence of bowel obstruction. Otherwise, no acute findings identified in the abdomen/pelvis. External Record Review External record reviewed: Inpatient record and Outpatient record Discharge Plan Discharge Clinical Impression: Gastroenteritis Patient Disposition: Home, Self-Care Instructions: Gastroenteritis (ED) Additional Instructions: Introduce a bland diet including crackers, bananas, rice, soup, toast, and boiled vegetables. This may progress to plain baked or boiled chicken or turkey. Avoid dairy products or foods high in fat or grease. Stay well hydrated, drink plenty of fluids. Use Zofran as needed for nausea/vomiting. Trial Imodium [id number] for diarrhea Prescriptions: New ondansetron 4 mg tablet,disintegrating 4 mg PO Q8H PRN (Reason: nausea and vomiting) Qty: 10 0RF No Action famotidine [Pepcid] 20 mg tablet 20 mg PO BID PRN (Reason: abdominal discomfort) Qty: 60 0RF losartan 25 mg tablet 25 mg PO DAILY Qty: 30 0RF lidocaine 5 % cream 1 appl topical BID PRN (Reason: pain) Qty: 28.35 0RF oxycodone 5 mg tablet 5 mg PO TID PRN (Reason: pain) tramadol 50 mg tablet 50 mg PO QID PRN (Reason: pain) acetaminophen 650 mg Tablet Extended Release 650 mg PO Q8H PRN (Reason: Pain) losartan 25 mg tablet 25 mg PO DAILY docusate sodium [Colace] 100 mg capsule 100 mg PO DAILY Qty: 30 0RF senna 8.6 mg capsule 8.6 mg PO BEDTIME PRN (Reason: constipation) Qty: 30 0RF albuterol sulfate 90 mcg/actuation HFA aerosol inhaler 2 puff inhalation Q6H PRN (Reason: shortness of breath or wheezing) Qty: 6.7 0RF cholecalciferol (vitamin D3) 25 mcg (1,000 unit) capsule 25 mcg PO DAILY 90 Days Qty: 90 0RF ogextedw-[id number] 3.5-10,000-1 mg/mL-unit/mL-% drops,suspension 4 drp otic (ears) Q8H Qty: 10 0RF sertraline 100 mg tablet 150 mg PO BEDTIME Referrals: Physician,None [Primary Care Provider] -
[2023-07-09 20:29] VITALS: BP 153/93; PULSE 84; RESP 16; TEMP 37.3; O2SAT 94; BMI 32.9
--- NOTE | 2023-07-09 20:29 | ECG_ITS ---
Test Reason : NAUSEA Blood Pressure : / mmHG Vent. Rate : 087 BPM Atrial Rate : 087 BPM P-R Int : 130 ms QRS Dur : 092 ms QT Int : 364 ms P-R-T Axes : 049 013 012 degrees QTc Int : 438 ms Normal sinus rhythm Possible Left atrial enlargement Borderline ECG When compared with ECG of 13-AUG-2022 17:30, No significant change was found Referred By: Suzanne Villanueva Electronically Signed By:Demian Logan
[2023-07-09 20:59] LABS: MANUAL DIFF FLAG NO
[2023-07-09 21:08] LABS: IDNOW Serial# 58CA691E; Strep A Nucleic Acid Negative (Negative)
[2023-07-09 21:10] LABS: Basophils Percent Auto 0.1 % (0-2); Eosinophils Absolute Auto 0.1 X10*3/uL (0.0-0.4); Eosinophils Percent Auto 1.6 % (0-4); Hematocrit 47.2 % (42.0-52.0); Hemoglobin 16.3 g/dl (14.0-18.0); Imm Gran Abs Auto 0.02 X10*3/uL (0.00-0.03); Imm Gran Pct Auto 0.2 % (0.0-0.4); Lymphocytes Absolute Auto 0.5 X10*3/uL (1.2-4.9); Lymphocytes Percent Auto 5.6 % (20-40); Mean Corpuscular HGB Conc 34.5 g/dl (31.0-36.0); Mean Corpuscular Hemoglobin 29.9 pg (27.0-33.0); Mean Corpuscular Volume 86.6 fL (80.0-98.0); Mean Platelet Volume 9.7 fL (9.4-12.4); Monocytes Absolute Auto 0.4 X10*3/uL (0.1-1.2); Monocytes Percent Auto 4.5 % (2-11); Neutrophils Absolute Auto 7.8 x10*3/uL (2.0-8.3); Platelet Count 237 X10*3/uL (160-400); Red Blood Count 5.45 X10*6/uL (4.60-5.80); Red Cell Distribution Width 14.8 % (11.0-16.0); White Blood Count 8.9 X10*3/uL (4.8-10.8)
[2023-07-09 21:14] LABS: Alanine Aminotransferase 25 U/L (0-40); Albumin Level 4.3 g/dL (3.5-5.0); Alkaline Phosphatase 119 U/L (39-117); Anion Gap 13 (12-20); Aspartate Amino Transferase 19 U/L (5-37); Blood Urea Nitrogen 17 mg/dL (9-16); Calcium 9.5 mg/dL (8.4-10.2); Carbon Dioxide 25 mmol/L (22-29); Chloride 107 mmol/L (96-108); Estimated Glomerular Filt Rate > 60; Glucose Random 106 mg/dL (60-115); Magnesium 2.2 mg/dL (1.6-2.6); Potassium 3.8 mmol/L (3.3-5.1); Sodium 141 mmol/L (135-145)
[2023-07-09 21:22] LABS: Troponin-I High Sensitivity < 2.7 ng/L (<3.5-35.0)
[2023-07-09 21:36] LABS: Influenza A PCR NEGATIVE (Negative); Influenza B PCR NEGATIVE (Negative); Resp Syncy Virus RNA Qual PCR NEGATIVE (Negative); SARS COV2 PCR INHOUSE NEGATIVE (Negative)
[2023-07-09 23:05] VITALS: BP 144/92; PULSE 82; RESP 16; TEMP 36.8; O2SAT 98
[2023-07-09 23:18] LABS: Appearance Urine Clear; Color Urine Dark Yellow; Glucose Urine UA Negative (Negative); Leukocyte Esterase Urine Negative (Negative); Nitrite Urine Negative (Negative); Specific Gravity - Urine >= 1.030 (1.005-1.025); UMIC TRIGGER UACC YES; Urine Blood Small (1+) (Negative); Urine Ketones Negative (Negative); Urine Protein Negative (Neg-Trace)
[2023-07-09 23:43] LABS: Bacteria Urine None Seen (None Seen); Hyaline Casts Urine 0-2 /LPF (0-2); Squamous Epithelial Cell Urine 0-2 /HPF (0-2); WBC Urine 0-5 /HPF (0-5)
[2023-07-10 00:48] VITALS: BP 147/95; PULSE 79; RESP 18; TEMP 36.8; O2SAT 97
[2023-07-10 01:03] LABS: Lipase 23 U/L (8-78)
[2023-07-10] MEDS: iohexoL 350 MG/ML 100 ML INFUS..BTL 85 ML IV (01:11)
[2023-07-10] MEDS: Famotidine/PF 20 MG/2 ML VIAL IVPUSH (01:19)
[2023-07-10] MEDS: ondansetron HCL 4 MG/2 ML VIAL IVPUSH (01:19)
[2023-07-10 02:16] VITALS: BP 143/82; PULSE 73; RESP 16; TEMP 36.8; O2SAT 97
== END 2023-07-10 02:22 | disposition home or self-care (01) ==
PROVIDERS: Nurse Practitioner Family; Physician Assistant Medical; Emergency Provider Student in an Organized Health Care Education/Training Program
DX: K52.9 Noninfective gastroenteritis and colitis, unspecified (principal); R11.2 Nausea with vomiting, unspecified; R10.13 Epigastric pain; R94.31 Abnormal electrocardiogram [ECG] [EKG]; Z11.52 Encounter for screening for COVID-19; Z20.822 Contact with and (suspected) exposure to COVID-19; Z79.899 Other long term (current) drug therapy
CPT/HCPCS: 0241U; 74177; 80053; 81001; 83690; 83735; 84484; 85025; 87651; 93005; 96374; 96375; 99284; J2405; Q9967

== ENCOUNTER → 2023-07-09 20:29 | Outpatient (BNV) | payer OTHER, SELFPAY | PROVIDERS: Emergency Provider Student in an Organized Health Care Education/Training Program; Visit Provider Internal Medicine Cardiovascular Disease | DX: R11.0 Nausea (principal) | CPT/HCPCS: 93010 ==

== ENCOUNTER 2023-10-19 13:20 | Outpatient (AMB) | payer OTHER, SELFPAY ==
--- NOTE | 2023-10-19 13:22 | A.OFFPC_ITS ---
Vital Signs 10/19/23 13:24 Height 5 ft 6 in Weight 188 lb BMI 30.3 BP 140/92 H Blood Pressure Location Rt brachial Position Sitting Pulse 95 Pulse Source Pulse Oximeter Pulse Oximetry (%) 98 Oxygen Delivery Method Room Air Intake Visit Reasons: ANNUAL PE Allergies No Known Allergies Allergy (Verified 10/19/23 13:24) Medication List - Last Reconciled 10/19/23 by Rhina Thurman MD acetaminophen ER 650 mg PO Q8H PRN albuterol sulfate 90 mcg/actuation 2 puffs inhalation Q6H PRN cholecalciferol (vitamin D3) 25 mcg PO DAILY 90 days docusate sodium (Colace) 100 mg PO DAILY famotidine (Pepcid) 20 mg PO BID PRN lidocaine 5% 1 appl topical BID PRN losartan 25 mg PO DAILY jzxiemfh-kirffgefr-IG 3.5-10,000-1 mg/mL-unit/mL-% 4 drps otic (ears) Q8H ondansetron 4 mg PO Q8H PRN sennosides (senna) 8.6 mg PO BEDTIME PRN sertraline 150 mg PO BEDTIME Tobacco use date assessed: 10/19/23 Dental Screening Dental Screen Date: 10/19/23 Did you have a dental visit in the last 12 months?: Yes Did you have a dental problem in the last 6 months where you did not have access to dental care?: No Was dental information given to patient?: Patient has dentist HPI ANNUAL PE HPI Details Patient is a 53-year-old gentleman came in today for physical examination In June he was in emergency room [facility] for gastroenteritis He had a CT scan done which showed Fluid within the colon, a finding which can be associated with diarrhea. No evidence of bowel obstruction. Otherwise, no acute findings identified in the abdomen/pelvis. He is due for colonoscopy, referral placed Labs reviewed done in hospital in June Blood pressure is 140/92 it was elevated in June as well Past few readings are elevated the chart I am starting him on atenolol 25 mg daily patient was encouraged to blood pressure monitor and start logging the readings Patient is to return in 3 weeks for follow-up He was prescribed losartan 25 mg in the past which he is not taking patient says that he does not want to spend too much money on medications He has a limited range of motion left elbow secondary to injury he encountered few months ago He is also complaining of throat irritation for that I have told him to start gargling with warm water and tsp of salt [facility] Medical History Colon cancer screening History of small bowel obstruction Elevated blood pressure reading Pain management Open fracture of distal end of left humerus Cough Snoring Daytime sleepiness Witnessed apneic spells Sensation of fullness in both ears Acquired generalized premature ejaculation Hospital discharge follow-up Obesity due to excess calories Change in mole Pharyngitis Loud snoring Change in mole Establishing care with new doctor, encounter for History of changing skin mole Obesity Mass of abdomen Swelling Toenail deformity Multiple complaints High cholesterol Hypertension Surgical History Hx laparoscopic cholecystectomy History of esophagogastroduodenoscopy (EGD) Family History Father Hypertension Diabetes Social History Household Members: Family Housing: Apartment Do you presently have visiting nurse or other home services: No Alcohol intake: never Patient Tobacco Use Status: Never used Tobacco e-Cigarette/Vaping Use: Never Used Second Hand Smoke Exposure: No service: No Current occupational status: unemployed Cognitive needs: No Hearing needs: No Vision needs: Yes Questionnaire Thrive Questionnaire Date Thrive assessed: 05/12/23 AUDIT C Alcohol Use Questionnaire (AUDIT-C) 1. How often do you have a drink containing alcohol?: Never 3. How often do you have six or more drinks on one occasion?: Never Total Score: 0 Score Reviewed/Action Taken: No Review of Systems Const Denies chills, Denies fever(s) and Denies headache(s) Eyes Denies blurry vision ENT Denies headache(s), Denies nasal discharge, Denies nasal obstruction, Denies odynophagia and Denies sinus pain Card Denies chest pain at rest and Denies chest pain with activity Resp Denies cough and Denies hemoptysis GI Denies diarrhea, Denies odynophagia, Denies vomiting and Denies hematemesis Reports as per HPI Musc Denies abnormal gait Skin/Breast Reports as per HPI Neuro Denies Neuro-related abnormal movements, Denies Abnormal speech present, Denies abnormal gait, Denies headache(s) and Denies Sensory deficit (Neuro) Psych Denies mood swings and Denies paranoia Endo Reports as per HPI Alfred/Lymph Reports as per HPI Aller/Immun Reports as per HPI Physical exam (Primary Care) Vital Signs: Last Vital Signs Pulse 95 10/19/23 13:24 BP 140/92 H 10/19/23 13:24 Pulse Ox 98 10/19/23 13:24 Oxygen Delivery Method Room Air 10/19/23 13:24 BMI result Body Mass Index 30.3 Tobacco/Smoking Status: Tobacco use Status Tobacco use date assessed 10/19/23 10/19/23 13:28 Patient Tobacco Use Status Never used Tobacco 10/19/23 13:24 e-Cigarette/Vaping Use Never Used 10/19/23 13:24 Thrive Assessment: Date of Thrive Assessment Date Thrive assessed 05/12/23 10/19/23 13:24 Const General: cooperative, comfortable and no acute distress Orientation/consciousness: patient oriented x3 HENMT Head: Yes normocephalic and Yes atraumatic Eyes General: appearance normal, both eyes and all related structures Pupils: Equal, round and reactive pupils present EOM: EOMs intact bilaterally Neck Neck: Yes supple and No lymphadenopathy Thyroid: Thyroid normal Lymphatic: no lymphadenopathy noted Resp Effort & Inspection: normal respiratory effort and able to speak in complete sentences Auscultation: clear to auscultation bilaterally Cardio Heart sounds: S1 normal heart sound present and S2 normal heart sound present GI Palpation (GI): Soft to palpation and nontender Auscultation: normal bowel sounds General: Yes no CVA tenderness Back/Spine/Pelvis Back: no CVA tenderness Skin General skin exam: elasticity normal and turgor normal Neuro General: patient oriented x3 and gait normal Cranial nerves: Yes Equal, round and reactive pupils present Speech: No Abnormal speech present Sensory Exam: No Sensory deficit (Neuro) Coordination: tandem gait normal and Romberg test negative Extrem General: Yes normal exam except as noted and No edema Assessment and Plan Assessment & Plan (1) Encounter for general adult medical examination with abnormal findings: Code(s): Z00.01 - Encounter for general adult medical examination with abnormal findings (2) Hypertension, essential: Code(s): I10 - Essential (primary) hypertension (3) Colon cancer screening: Code(s): Z12.11 - Encounter for screening for malignant neoplasm of colon (4) Throat irritation: Code(s): J39.2 - Other diseases of pharynx Plan Patient is a 53-year-old gentleman came in today for physical examination In June he was in emergency room [facility] for gastroenteritis He had a CT scan done which showed Fluid within the colon, a finding which can be associated with diarrhea. No evidence of bowel obstruction. Otherwise, no acute findings identified in the abdomen/pelvis. He is due for colonoscopy, referral placed Labs reviewed done in hospital in June Blood pressure is 140/92 it was elevated in June as well Past few readings are elevated the chart I am starting him on atenolol 25 mg daily patient was encouraged to blood pressure monitor and start logging the readings Patient is to return in 3 weeks for follow-up He was prescribed losartan 25 mg in the past which he is not taking patient says that he does not want to spend too much money on medications He has a limited range of motion left elbow secondary to injury he encountered few months ago He is also complaining of throat irritation for that I have told him to start gargling with warm water and tsp of salt Orders: Referrals Gastroenterology Referral Z12.11 - Encounter for screening for malignant neoplasm of colon Medications: New atenolol 25 mg PO DAILY 90 tabs 0RF Discontinued losartan Discontinued Reason: Change Referral Type 25 mg PO DAILY docusate sodium (Colace) Discontinued Reason: Patient Completed Course 100 mg PO DAILY 30 caps 0RF lidocaine 5% Discontinued Reason: Doctor's Order 1 appl topical BID PRN 28.35 grams 0RF pain ondansetron Discontinued Reason: No Longer Medically Relevant 4 mg PO Q8H PRN 10 tabs 0RF nausea and vomiting Coding Level of Care Code Est Pt Level 3 (31154) Est Pt Prev Care 40-64y(65856) Diagnoses Encounter for general adult medical examination with abnormal findings Z00.01 Hypertension, essential I10 Colon cancer screening Z12.11 Throat irritation J39.2
[2023-10-19 13:24] VITALS: BP 140/92; PULSE 95; O2SAT 98; BMI 30.3
== END 2023-10-19 13:46 | disposition home or self-care (01) ==
PROVIDERS: Visit Provider Internal Medicine
DX: Z00.01 Encounter for general adult medical examination with abnormal findings (principal); Z12.11 Encounter for screening for malignant neoplasm of colon; I10 Essential (primary) hypertension; J39.2 Other diseases of pharynx
CPT/HCPCS: 99213; 99396

== ENCOUNTER 2023-10-23 02:24 | Emergency (ER) | payer OTHER, SELFPAY ==
--- NOTE | ~2023-10-23 | XR_ITS ---
EXAMINATION: XR CHEST CLINICAL INFORMATION: Difficulty breathing and cough. COMPARISON: 08/13/2022 TECHNIQUE: Frontal view of the chest was obtained. FINDINGS: The cardiomediastinal silhouette is within normal limits and stable. There is chronic blunting of the right costophrenic angle. There is no focal lung consolidation or evidence for significant pleural effusion. The bony structures and soft tissues are unremarkable. XR/XR chest 1V IMPRESSION: Chronic blunting of the right costophrenic angle. No acute cardiopulmonary process.
[2023-10-23 02:38] VITALS: BP 137/90; PULSE 71; RESP 16; TEMP 36.8; O2SAT 97; BMI 29.6
--- OUTSIDE RECORDS SUMMARY | 2023-10-23 03:05 | XMS_ITS | Continuity of Care Document ---
Author Organization [facility] ter Address [address] [place] [id number]- Care Team Providers Care Spoke Maker Name Role Phone Not on Staff, PCP Primary Care Physician Unavail able [place] [facility] [place] - 05/24/[address] [address]- Attending Physician: Art Pearl MD Admitting Physician: Art Pearl MD Allergies, Adverse Reactions, Alerts No Known Medication Allergies Medications docusate sodium 100 mg oral capsule 1 capsule = 100 mg, By Mouth, 2 times a day, # 28 capsule, 0 Refills, Maintenance, 02/12/23 16:20:00 EDT, Capsule, [facility]/pharmacy #[id number], Partial fill upon patient request if the prescription is for a schedule II opioid drug., 170, cm, 02/12/23 11:42:00... Start Date: 02/12/23 Stop Date: 02/26/23 Status: Ordered losartan 25 mg oral tablet 25 mg, By Mouth, Daily, # 30 tablet, Refills 0, Tot. Refills 0, Maintenance, 02/12/23 16:21:00 EDT,Route to Pharmacy Electronically, [facility] #[id number], Partial fill upon patient request if [...] opioid drug. Start Date: 05/07/23 Status: Ordered sertraline 100 mg oral tablet 1 tablet [...] lower end of left humerus Confirmed Active Stiffness of left elbow joint Confirmed Active Patient Care team information Care Team Personnel Name: Bea Cabello RN Position: [facility] RN Member Role: Primary Care Nurse Name: Evelyn Corado Position: [facility] RN Member Role: Primary Care Nurse Name: Caro Grijalva RN Position: [facility] RN Member Role: Primary Care Nurse Name: Not on Staff, PCP Position: [facility] Physician (General Medicine) Member Role: PCP Care Team Related Persons Name: GOLD OHARA Name: HONEY ARVIZU Address: [address] [address]
[2023-10-23 03:44] LABS: Influenza A PCR NEGATIVE (Negative); Influenza B PCR NEGATIVE (Negative); Resp Syncy Virus RNA Qual PCR NEGATIVE (Negative); SARS COV2 PCR INHOUSE NEGATIVE (Negative)
[2023-10-23 06:35] VITALS: BP 139/89; PULSE 59; RESP 18; TEMP 36.6; O2SAT 97
[2023-10-23 06:36] VITALS: O2SAT 97
[2023-10-23 06:37] LABS: MANUAL DIFF FLAG NO
--- NOTE | 2023-10-23 06:37 | PC.NURSE ---
this rn assumed care of pt. pt reporting onset of shortness of breath, cough and nasal congestion x 1 week. pt reports that sob does not worsen with exertion. denies sick contact. pt lung sounds clear bilaterally. 20G placed in right ac, labs obtained.
[2023-10-23 06:38] LABS: Basophils Percent Auto 0.3 % (0-2); Eosinophils Absolute Auto 0.2 X10*3/uL (0.0-0.4); Eosinophils Percent Auto 2.4 % (0-4); Hematocrit 42.1 % (42.0-52.0); Hemoglobin 14.7 g/dl (14.0-18.0); Imm Gran Abs Auto 0.04 X10*3/uL (0.00-0.03); Imm Gran Pct Auto 0.7 % (0.0-0.4); Lymphocytes Absolute Auto 1.4 X10*3/uL (1.2-4.9); Lymphocytes Percent Auto 23.1 % (20-40); Mean Corpuscular HGB Conc 34.9 g/dl (31.0-36.0); Mean Corpuscular Hemoglobin 31.5 pg (27.0-33.0); Mean Corpuscular Volume 90.1 fL (80.0-98.0); Mean Platelet Volume 10.2 fL (9.4-12.4); Monocytes Absolute Auto 0.8 X10*3/uL (0.1-1.2); Monocytes Percent Auto 13.3 % (2-11); Neutrophils Absolute Auto 3.7 x10*3/uL (2.0-8.3); Neutrophils Percent Auto 60.2 % (45-73); Platelet Count 284 X10*3/uL (160-400); Red Blood Count 4.67 X10*6/uL (4.60-5.80); Red Cell Distribution Width 12.5 % (11.0-16.0); White Blood Count 6.2 X10*3/uL (4.8-10.8)
[2023-10-23 07:01] LABS: Alanine Aminotransferase 14 U/L (0-40); Albumin Level 3.8 g/dL (3.5-5.0); Alkaline Phosphatase 86 U/L (39-117); Anion Gap 9 (12-20); Aspartate Amino Transferase 13 U/L (5-37); Bilirubin Total 0.6 mg/dL (0.0-1.0); Blood Urea Nitrogen 16 mg/dL (9-16); Calcium 9.4 mg/dL (8.4-10.2); Carbon Dioxide 30 mmol/L (22-29); Chloride 103 mmol/L (96-108); Creatinine Clr Calc Pharmacy 100.3; Estimated Glomerular Filt Rate > 60; Glucose Random 107 mg/dL (60-115); Potassium 4.1 mmol/L (3.3-5.1); Sodium 138 mmol/L (135-145); Total Protein 7.1 g/dL (6.5-8.0)
--- NOTE | 2023-10-23 07:40 | ED_ITS ---
HPI - URI/Sore Throat General Chief Complaint: Upper Respiratory Symptoms Stated Complaint: diff breathing Time Seen by Provider: 10/23/23 07:39 Source: patient Mode of arrival: ambulatory Limitations: no limitations History of Present Illness ED Provider: Dr. Hill HPI Narrative: 3 days of cough and cold and sore throat, sick family at home MD elicited complaint: fever, cough and sore throat Onset (ago): day(s) Consistency: constant Severity: mild Related Data Home Medications ?Medication ?Instructions ?Recorded ?Confirmed acetaminophen 650 mg 650 mg PO Q8H PRN Pain 05/12/23 10/19/23 tablet,extended release Previous Rx's ?Medication ?Instructions ?Recorded albuterol sulfate 90 mcg/actuation 2 puff inhalation Q6H PRN 07/14/22 aerosol inhaler shortness of breath or wheezing #6.7 grams cholecalciferol (vitamin D3) 25 25 mcg PO DAILY 90 days #90 caps 01/30/23 mcg (1,000 unit) capsule iprjwjft-zzlgoatwd-pmqvuplua 3.5 4 drp otic (ears) Q8H #10 mL 04/06/23 mg-10,000 unit/mL-1 % ear drops,susp sennosides 8.6 mg capsule (senna) 8.6 mg PO BEDTIME PRN constipation 05/12/23 #30 caps famotidine 20 mg tablet (Pepcid) 20 mg PO BID PRN abdominal 05/16/23 discomfort #60 tabs atenolol 25 mg tablet 25 mg PO DAILY #90 tabs 10/19/23 mgbgeynoxokwt-FX-icxiqkjvbzo 2.5 20 ml PO Q4H PRN cough #118 mL 10/23/23 mg-5 mg-50 mg/5 mL oral liquid (Robitussin Cough and Cold CF) Allergies Allergy/AdvReac Type Severity Reaction Status Date / Time No Known Allergies Allergy Verified 10/23/23 02:40 Review of Systems 2 Review of Systems: Yes all other systems are reviewed and are negative Neurologic: Denies Sensory deficit (Neuro) PMFSH Past Medical History Medical History Colon cancer screening History of small bowel obstruction Elevated blood pressure reading Pain management Open fracture of distal end of left humerus Cough Snoring Daytime sleepiness Witnessed apneic spells Sensation of fullness in both ears Acquired generalized premature ejaculation Hospital discharge follow-up Obesity due to excess calories Change in mole Pharyngitis Loud snoring Change in mole Establishing care with new doctor, encounter for History of changing skin mole Obesity Mass of abdomen Swelling Toenail deformity Multiple complaints High cholesterol Hypertension Surgical History Hx laparoscopic cholecystectomy History of esophagogastroduodenoscopy (EGD) Family History Family History Father Hypertension Diabetes Social History Social History Household Members: Family Housing: Apartment Do you presently have visiting nurse or other home services: No Alcohol intake: never Patient Tobacco Use Status: Never used Tobacco Smoked in Last 30 Days: No e-Cigarette/Vaping Use: Never Used Second Hand Smoke Exposure: No Use of substances other than those prescribed or required for medical reasons: No Advance Directives: No Advance Directives Information Provided: Yes Do you have a plan to hurt others: No Plan service: No Current occupational status: unemployed Cognitive needs: No Hearing needs: No Vision needs: Yes Physical Exam 2 Vital Signs: Vital Signs: Last Vital Signs Temp 97.9 F 10/23/23 06:35 Pulse 59 10/23/23 06:35 Resp 18 10/23/23 06:35 BP 139/89 10/23/23 06:35 Pulse Ox 97 10/23/23 06:36 O2 Del Method Room Air 10/23/23 06:36 BMI result Body Mass Index 29.6 Const: Other: Male coughing no acute distress Nutritional Appearance: average body habitus Orientation/consciousness: oriented to person and patient oriented x3 Limitations: no limitations HEENT: Head: Yes normal to inspection Ears: external ears normal General nose exam: Normal external nose present Mouth: Normal oral and palatal mucosa present and oropharynx normal Throat: Yes posterior oropharynx normal Eyes: General: appearance normal, both eyes and all related structures Neck: Other: supple Neck: Yes normal visual inspection Chest: Chest palpation & inspection: normal inspection of the chest Resp: Auscultation: clear to auscultation bilaterally Cardio: Jugular venous distension: no JVD Rate: regular rate Rhythm: r egular rhythm Heart sounds: S1 normal heart sound present and S2 normal heart sound present GI: Other: large abdominal incision with small surgical hernia Palpation (GI): Soft to palpation, Tenderness to palpation present (GI) and No hepatosplenomegaly present Auscultation: normal bowel sounds : General: Yes no CVA tenderness Back/Spine/Pelvis: Back: no CVA tenderness Skin: General skin exam: no rashes or lesions noted Neuro: General: oriented to person and patient oriented x3 Cranial nerves: Yes CN's II-XII intact bilaterally Motor exam (neuro): 5/5 motor strength present throughout Sensory Exam: No Sensory deficit (Neuro) Extrem: General: Yes normal to inspection Psych: Appearance: grossly normal Course Reevaluation(s) Reevaluation #1: CXR, labs and respiratory panel were negative Time: 07:46 Medical Decision Making Differential Diagnosis Differential Diagnoses: The differential diagnosis associated with the presentation includes (pneumonia, covid, flu, RSV) Admission/Observation Consideration of admission/observation: Escalation of care including admission/observation considered (upon arrival patient was considered for admission) Lab Data 10/23/23 06:32 10/23/23 06:32 Labs: Lab Results 10/23/23 10/23/23 Range/Units 03:03 06:32 WBC 6.2 (4.8-10.8) X10*3/uL RBC 4.67 (4.60-5.80) X10*6/uL Hgb 14.7 (14.0-18.0) g/dl Hct 42.1 (42.0-52.0) % MCV 90.1 (80.0-98.0) fL MCH 31.5 (27.0-33.0) pg MCHC 34.9 (31.0-36.0) g/dl RDW 12.5 (11.0-16.0) % Plt Count 284 (160-400) X10*3/uL MPV 10.2 (9.4-12.4) fL Immature Gran % (Auto) 0.7 H (0.0-0.4) % Neut % (Auto) 60.2 (45-73) % Lymph % (Auto) 23.1 (20-40) % [place] % (Auto) 13.3 H (2-11) % Eos % (Auto) 2.4 (0-4) % Baso % (Auto) 0.3 (0-2) % Lymph # (Auto) 1.4 (1.2-4.9) X10*3/uL [place] # (Auto) 0.8 (0.1-1.2) X10*3/uL Eos # (Auto) 0.2 (0.0-0.4) X10*3/uL Baso # (Auto) 0.0 (0.0-0.2) X10*3/uL Abs Immat Gran (auto) 0.04 H (0.00-0.03) X10*3/uL Absolute Neuts (auto) 3.7 (2.0-8.3) x10*3/uL Absolute Nucleated RBC 0.000 (0.0-0.012) X10*3/uL Nucleated RBC % (auto) 0.0 (0.0-0.2) /100WBC Sodium 138 (135-145) mmol/L Potassium 4.1 (3.3-5.1) mmol/L Chloride 103 (96-108) mmol/L Carbon Dioxide 30 H (22-29) mmol/L Anion Gap 9 L (12-20) BUN 16 (9-16) mg/dL Creatinine 0.89 (0.5-1.4) mg/dL Estim Creat Clear Calc 100.3 Estimated GFR > 60 Random Glucose 107 (60-115) mg/dL Calcium 9.4 (8.4-10.2) mg/dL Total Bilirubin 0.6 (0.0-1.0) mg/dL AST 13 (5-37) U/L ALT 14 (0-40) U/L Alkaline Phosphatase 86 (39-117) U/L Total Protein 7.1 (6.5-8.0) g/dL Albumin 3.8 (3.5-5.0) g/dL Influenza Type A (PCR) NEGATIVE (Negative) Influenza Type B (PCR) NEGATIVE (Negative) RSV RNA Qual (PCR) NEGATIVE (Negative) SARS-CoV-2 RNA (RT-PCR) NEGATIVE (Negative) Independent Interpretation I performed an independent interpretation of an: Plain X-Ray (CXR no infiltrate) Prescription Management I considered prescription management with: Antibiotic (no evidence of pneumonia so no abx given) Discharge Plan Discharge Clinical Impression: Upper respiratory infection Patient Disposition: Home, Self-Care Instructions: Upper Respiratory Infection (ED), Viral Syndrome (ED) Prescriptions: New Robitussin Cough and Cold CF 2.5-5-50 mg/5 mL liquid 20 ml PO Q4H PRN (Reason: cough) Qty: 118 0RF No Action famotidine [Pepcid] 20 mg tablet 20 mg PO BID PRN (Reason: abdominal discomfort) Qty: 60 0RF acetaminophen 650 mg Tablet Extended Release 650 mg PO Q8H PRN (Reason: Pain) senna 8.6 mg capsule 8.6 mg PO BEDTIME PRN (Reason: constipation) Qty: 30 0RF albuterol sulfate 90 mcg/actuation HFA aerosol inhaler 2 puff inhalation Q6H PRN (Reason: shortness of breath or wheezing) Qty: 6.7 0RF cholecalciferol (vitamin D3) 25 mcg (1,000 unit) capsule 25 mcg PO DAILY 90 Days Qty: 90 0RF mljvjvpf-kcgkugqgv-ZF 3.5-10,000-1 mg/mL-unit/mL-% drops,suspension 4 drp otic (ears) Q8H Qty: 10 0RF atenolol 25 mg tablet 25 mg PO DAILY Qty: 90 0RF Referrals: Physician,None [Primary Care Provider] - 5 days Print Language: Syriac
[2023-10-23 07:51] VITALS: BP 139/89; PULSE 59; RESP 18; TEMP 36.6; O2SAT 98
== END 2023-10-23 07:57 | disposition home or self-care (01) ==
PROVIDERS: Emergency Provider Emergency Medicine
DX: J06.9 Acute upper respiratory infection, unspecified (principal); R05.9 Cough, unspecified; J02.9 Acute pharyngitis, unspecified; R50.9 Fever, unspecified
CPT/HCPCS: 0241U; 36415; 71045; 80053; 85025; 99283; 99284

== ENCOUNTER 2023-10-30 10:33 | Outpatient (AMB) | payer OTHER, SELFPAY ==
[2023-10-30 10:35] VITALS: BP 140/82; PULSE 59; O2SAT 97; BMI 29.2
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
== END 2023-10-30 11:36 | disposition home or self-care (01) ==
PROVIDERS: Visit Provider Internal Medicine
DX: M54.16 Radiculopathy, lumbar region (principal); Z04.3 Encounter for examination and observation following other accident
CPT/HCPCS: 99214

== ENCOUNTER 2023-10-30 11:00 | Outpatient (REF) | payer OTHER, SELFPAY ==
--- NOTE | ~2023-10-30 | XR_ITS ---
EXAMINATION: XR LUMBOSACRAL SPINE CLINICAL INFORMATION: Radiculopathy lumbar region. COMPARISON: None available. TECHNIQUE: Three views of the lumbosacral spine. FINDINGS: Slight leftward curvature of the lumbar spine. Straightening of the normal lumbar lordosis. Right upper quadrant oval calcification of indeterminate etiology, possibly related to the gallbladder/gallstone. Dedicated ultrasound images could be considered for further evaluation. Facet arthritis in the lower spine. Mild multilevel lumbar spondylosis with mild loss of disc space height at L4-L5. XR/XR lumbar spine 2-3V IMPRESSION: 1. Mild multilevel lumbar spondylosis with mild loss of disc space height at L4-L5. 2. Facet arthritis in the lower spine. 3. Right upper quadrant oval calcification of indeterminate etiology, possibly related to the gallbladder/gallstone. Dedicated ultrasound images could be considered for further evaluation.
== END 2023-10-30 11:01 | disposition home or self-care (01) ==
LOC: HO.HMGCX 11:00
PROVIDERS: PCP Internal Medicine; Visit Provider Internal Medicine
DX: M54.16 Radiculopathy, lumbar region (principal)
CPT/HCPCS: 72100

== ENCOUNTER 2023-11-14 14:25 | Outpatient (REF) | payer OTHER, SELFPAY ==
--- NOTE | ~2023-11-14 | XR_ITS ---
EXAMINATION: XR HIP, RIGHT CLINICAL INFORMATION: Unilateral primary osteoarthritis. COMPARISON: Lumbar spine 10/30/2023. TECHNIQUE: 3 views of the right hip. FINDINGS: Moderate degenerative changes with joint space narrowing and hypertrophic change in the right hip. Degenerative changes on limited views of the right sacroiliac joint. XR/XR hip RT min 2V IMPRESSION: 1. Moderate degenerative changes in the right hip. 2. CT scan or MRI should be considered for further evaluation if there is clinical concern for fracture or other underlying pathology.
== END 2023-11-14 14:26 | disposition home or self-care (01) ==
LOC: HO.XRAY 14:25
PROVIDERS: PCP Internal Medicine; Visit Provider Anesthesiology
DX: M16.11 Unilateral primary osteoarthritis, right hip (principal); M54.50 Low back pain, unspecified
CPT/HCPCS: 73502; 99202

== ENCOUNTER 2023-11-14 14:25 | Outpatient (AMB) | payer OTHER, SELFPAY ==
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
[2023-11-14 14:29] VITALS: BP 139/85; PULSE 70; O2SAT 97; BMI 29.5
== END 2023-11-14 14:59 | disposition home or self-care (01) ==
PROVIDERS: PCP Internal Medicine; Visit Provider Anesthesiology
DX: M16.11 Unilateral primary osteoarthritis, right hip (principal); M54.50 Low back pain, unspecified
CPT/HCPCS: 99204

== ENCOUNTER 2023-11-16 09:36 | Outpatient (AMB) | payer OTHER, SELFPAY ==
--- NOTE | 2023-11-16 09:38 | AM.OFFWIN_ITS ---
Intake Vital Signs 3 11/16/23 09:39 Height 5 ft 7 in Weight 188 lb BMI 29.4 BP 112/78 Blood Pressure Location Rt brachial Position Sitting Pulse 69 Pulse Source Pulse Oximeter Temp 97.8 F Temp Source Temporal Artery Scan Pulse Oximetry (%) 98 Oxygen Delivery Method Room Air Intake Visit Reasons: rt side lip swollen Intake Note: pt c/o RT side lip swelling. Started 3 days ago Patient Tobacco Use Status: Never used Tobacco Allergies No Known Allergies Allergy (Verified 11/16/23 09:39) Do you need a note to return to daycare/school/sports/work: No HPI HPI Comments 2 History of Present Illness0 Details 53 y/o male patient who presents to the walk in clinic with c/o left upper lip swelling and painful. Reports symptoms started 3 days ago. Denies any other systemic symptoms at this time. [facility] Medical History (Updated 11/16/23 @ 10:00 by Jamee Sanford NP) Canker sores oral Colon cancer screening History of small bowel obstruction Elevated blood pressure reading Pain management Open fracture of distal end of left humerus Cough Snoring Daytime sleepiness Witnessed apneic spells Sensation of fullness in both ears Acquired generalized premature ejaculation Hospital discharge follow-up Obesity due to excess calories Change in mole Pharyngitis Loud snoring Change in mole Establishing care with new doctor, encounter for History of changing skin mole Obesity Mass of abdomen Swelling Toenail deformity Multiple complaints High cholesterol Hypertension Surgical History Hx laparoscopic cholecystectomy History of esophagogastroduodenoscopy (EGD) Family History Father Hypertension Diabetes Social History Household Members: Family Housing: Apartment Do you presently have visiting nurse or other home services: No Alcohol intake: never Patient Tobacco Use Status: Never used Tobacco e-Cigarette/Vaping Use: Never Used Second Hand Smoke Exposure: No service: No Current occupational status: unemployed Cognitive needs: No Hearing needs: No Vision needs: Yes Review of Systems Const All systems reviewed & are unremarkable except as noted in HPI and below Physical Exam Vital Signs: Last Vital Signs Temp 97.8 F 11/16/23 09:39 Pulse 69 11/16/23 09:39 BP 112/78 11/16/23 09:39 Pulse Ox 98 11/16/23 09:39 Oxygen Delivery Method Room Air 11/16/23 09:39 BMI result Body Mass Index 29.4 Const General: comfortable and no acute distress Nutritional Appearance: overweight Orientation/consciousness: patient oriented x3 HEENT Head: Yes normocephalic Ears: external ears normal General nose exam: Normal nasal mucous membranes and turbinates present Mouth: tongue normal, moist mucous membranes and lip abnormal (left upper lip swollen, erythema lesion) Mouth/tongue images: 2 1. Upper lip with swelling, erythematous crusting lesion present. 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 Medications: New 2 prednisone 20 mg PO DAILY 7 tabs 0RF K12.0 - Recurrent oral aphthae mupirocin calcium 2% Apply thin layer to the Lip 1 appl topical BID 15 grams 0RF K12.0 - Recurrent oral aphthae Coding Level of Care Code Est Pt Level 3 (47196) Diagnoses Canker sores oral K12.0 Time Spent (min) 15
[2023-11-16 09:39] VITALS: BP 112/78; PULSE 69; TEMP 36.6; O2SAT 98; BMI 29.4
== END 2023-11-16 10:09 | disposition home or self-care (01) ==
PROVIDERS: PCP Internal Medicine; Visit Provider Nurse Practitioner Family
DX: K12.0 Recurrent oral aphthae (principal)
CPT/HCPCS: 99213

== ENCOUNTER 2023-12-08 09:07 | Emergency (ER) | payer OTHER, SELFPAY ==
--- NOTE | ~2023-12-08 | XR_ITS ---
EXAMINATION: XR CHEST CLINICAL INFORMATION: Cough COMPARISON: Chest radiograph dated 10/23/2023 TECHNIQUE: Frontal view of the chest was obtained. FINDINGS: Elevation of the right hemidiaphragm with chronic blunting of the right costophrenic angle. Linear opacity in the right midlung may represent a prominent fissure versus trace amount of pleural effusion. No focal consolidation, pulmonary edema, or pneumothorax. Normal cardiomediastinal silhouette. No acute osseous abnormality. XR/XR chest 1V IMPRESSION: No acute cardiopulmonary process. Electronically signed by: Agnieszka Robles MD 12/08/2023 09:39 AM EDT
--- NOTE | 2023-12-08 09:10 | ECG_ITS ---
Test Reason : CHEST PAIN Blood Pressure : / mmHG Vent. Rate : 080 BPM Atrial Rate : 080 BPM P-R Int : 134 ms QRS Dur : 092 ms QT Int : 378 ms P-R-T Axes : 052 017 029 degrees QTc Int : 435 ms Sinus rhythm with Premature atrial complexes Otherwise normal ECG When compared with ECG of 09-JUL-2023 20:43, Premature atrial complexes are now Present Referred By: Generic ED Physician Electronically Signed By:JELANI DELATORRE
[2023-12-08 09:15] VITALS: BP 158/97; PULSE 73; RESP 18; TEMP 36.7; O2SAT 96; BMI 28.6
--- NOTE | 2023-12-08 09:38 | ED_ITS ---
HPI - URI/Sore Throat General Chief Complaint: Upper Respiratory Symptoms Stated Complaint: CP Time Seen by Provider: 12/08/23 09:29 Source: patient Mode of arrival: ambulatory Limitations: no limitations History of Present Illness ED Provider: Kimber Barker PA-C HPI Narrative: 53 yo male with history of HTN, DARREL presents to the ER for evaluation of 2 weeks of ongoing cough. Patient reports cough is now productive of yellow and white phlegm. He has pain in his left chest in his right leg when he coughs. He can not sleep well at night because of the cough. He denies any shortness of breath or difficulty breathing. No fevers or chills. He is a nonsmoker. He denies any associated abdominal pain, nausea, vomiting, diarrhea. No chest pain at rest. MD elicited complaint: cough Onset (ago): week(s) (2) Consistency: progressively worsening Severity: moderate Description of mucous: clear and yellow Able to tolerate fluids by mouth: Yes Exacerbating factors: supine positioning Relieving factors: nothing Associated symptoms: denies other symptoms Treatments prior to arrival: none Related Data Home Medications ?Medication ?Instructions ?Recorded ?Confirmed acetaminophen 650 mg 650 mg PO Q8H PRN Pain 05/12/23 10/19/23 tablet,extended release lorazepam 1 mg tablet 1 mg PO 10/30/23 sertraline 100 mg tablet 150 mg PO BEDTIME 10/30/23 Previous Rx's ?Medication ?Instructions ?Recorded albuterol sulfate 90 mcg/actuation 2 puff inhalation Q6H PRN 07/14/22 aerosol inhaler shortness of breath or wheezing #6.7 grams cholecalciferol (vitamin D3) 25 25 mcg PO DAILY 90 days #90 caps 01/30/23 mcg (1,000 unit) capsule sennosides 8.6 mg capsule (senna) 8.6 mg PO BEDTIME PRN constipation 05/12/23 #30 caps famotidine 20 mg tablet (Pepcid) 20 mg PO BID PRN abdominal 05/16/23 discomfort #60 tabs atenolol 25 mg tablet 25 mg PO DAILY #90 tabs 10/19/23 mupirocin calcium 2 % topical cream 1 appl topical BID #15 grams 11/16/23 prednisone 20 mg tablet 20 mg PO DAILY #7 tabs 11/16/23 albuterol sulfate 90 mcg/actuation 2 puff inhalation Q6H PRN 12/08/23 aerosol inhaler shortness of breath or wheezing #6.7 grams azithromycin 250 mg tablet See Rx Instructions PO .COMPLEX #6 12/08/23 (Zithromax Z-Stephen) tabs hydrocodone-homatropine 5 mg-1.5 5 ml PO Q6H PRN cough #60 mL 12/08/23 mg/5 mL (5 mL) oral syrup (Hycodan) prednisone 20 mg tablet 40 mg (2 x 20 mg) PO DAILY #10 tabs 12/08/23 Allergies Allergy/AdvReac Type Severity Reaction Status Date / Time No Known Allergies Allergy Verified 12/08/23 09:20 Review of Systems Review of Systems: Yes all other systems are reviewed and are negative [facility] Past Medical History Medical History (Updated 12/08/23 @ 10:58 by YANCI Gan) Canker sores oral Colon cancer screening History of small bowel obstruction Elevated blood pressure reading Pain management Open fracture of distal end of left humerus Cough Snoring Daytime sleepiness Witnessed apneic spells Sensation of fullness in both ears Acquired generalized premature ejaculation Hospital discharge follow-up Obesity due to excess calories Change in mole Pharyngitis Loud snoring Change in mole Establishing care with new doctor, encounter for History of changing skin mole Obesity Mass of abdomen Swelling Toenail deformity Multiple complaints High cholesterol Hypertension Surgical History Hx laparoscopic cholecystectomy History of esophagogastroduodenoscopy (EGD) Family History Family History Father Hypertension Diabetes Social History Social History Household Members: Family Housing: Apartment Do you presently have visiting nurse or other home services: No Alcohol intake: never Patient Tobacco Use Status: Never used Tobacco e-Cigarette/Vaping Use: Never Used Second Hand Smoke Exposure: No Advance Directives: No Advance Directives Information Provided: No Do you have a plan to hurt others: No Plan service: No Current occupational status: unemployed Cognitive needs: No Hearing needs: No Vision needs: Yes Physical Exam Vital Signs: Vital Signs: Last Vital Signs Temp 98.0 F 12/08/23 11:19 Pulse 73 12/08/23 11:19 Resp 18 12/08/23 11:19 BP 158/97 H 12/08/23 11:19 Pulse Ox 96 12/08/23 11:19 O2 Del Method Room Air 12/08/23 11:19 BMI result Body Mass Index 28.6 Appearance: Alert. Oriented X3. No acute distress. Head: normocephalic, atraumatic. Eyes: Pupils equal, round and reactive to light. ENT: Pharynx normal. No tonsillar swelling or exudate. Neck: Normal inspection. Neck supple. CVS: Normal heart rate and rhythm. Pulses normal. Respiratory: No respiratory distress. Breath sounds normal. Abdomen: Soft and nontender. +BS x4 Skin: Skin warm and dry. Normal skin color. Normal skin turgor. No rashes. Extremities: No lower extremity edema. No joint swelling. Neuro/psych: Oriented X 3. No motor deficit. No sensory deficit. CN II-XII intact. Normal speech and cognition. Medical Decision Making Medical Decision Making [facility] Narrative: 53-year-old male presents the ER for evaluation of worsening cough for the last 2 weeks. It is now productive. On arrival to the ER patient is saturating well on room air. He is in no respiratory distress and speaking in complete sentences. His lungs were clear to auscultation without any wheezing, rhonchi or rales. Chest x-ray was done which does not show any evidence of pneumonia. His COVID, flu, RSV test was negative. Given his symptoms and duration will treat for acute bronchitis. Stable for discharge home, return precautions were discussed. Patient expressed understanding all questions were answered. Differential Diagnosis Differential Diagnoses: The differential diagnosis associated with the presentation includes strep, covid, flu, rsv, other viral syndrome, bronchitis, pneumonia, allergies Lab Data [facility] Lab Attestation statement: I reviewed the patient's lab results. Negative viral studies Labs: Lab Results 12/08/23 Range/Units 09:29 Influenza Type A (PCR) NEGATIVE (Negative) Influenza Type B (PCR) NEGATIVE (Negative) RSV RNA Qual (PCR) NEGATIVE (Negative) SARS-CoV-2 RNA (RT-PCR) NEGATIVE (Negative) Independent Interpretation I performed an independent interpretation of an: Plain X-Ray Interpretation: Clear lungs, no focal infiltrate, effusion or pneumothorax Radiology Impression Discussion of test interpretation with radiology: I have reviewed the radiologist's reading. Radiologist Impression: EXAMINATION: XR CHEST CLINICAL INFORMATION: Cough COMPARISON: Chest radiograph dated 10/23/2023 TECHNIQUE: Frontal view of the chest was obtained. FINDINGS: Elevation of the right hemidiaphragm with chronic blunting of the right costophrenic angle. Linear opacity in the right midlung may represent a prominent fissure versus trace amount of pleural effusion. No focal consolidation, pulmonary edema, or pneumothorax. Normal cardiomediastinal silhouette. No acute osseous abnormality. XR/XR chest 1V IMPRESSION: No acute cardiopulmonary process. External Record Review External record reviewed: Outpatient record, Prior outpatient labs and Prior o utpatient radiology Prescription Management I considered prescription management with: Antibiotic Chronic Conditions Patient?s care impacted by: Hypertension Critical Care Time Critical Care Time Critical Care Time: No Discharge Plan Discharge Clinical Impression: Bronchitis Patient Disposition: Home, Self-Care Instructions: Acute Bronchitis (ED) Additional Instructions: Your chest x-ray today was normal. Your EKG today was reassuring. You tested negative for COVID, flu, RSV. Take the prescribed antibiotics as directed, complete the entire course and do not miss any doses Take the prescribed prednisone for the next 5 days Use the cough syrup as needed for coughing at night - it has a narcotic in it so it will help you sleep. Do not drive after taking this medication. Rest and drink plenty of fluids If you develop new or worsening symptoms call 911 or come back to the ER for further evaluation. Prescriptions: New azithromycin [Zithromax Z-Stephen] 250 mg tablet See Rx Instructions .ROUTE .COMPLEX Qty: 6 0RF Rx Instructions: take 500 mg today (day 1), then 250 mg for 4 days (days 2-5) prednisone 20 mg tablet 40 mg PO DAILY Qty: 10 0RF hydrocodone-homatropine [Hycodan] 5-1.5 mg/5 mL (5 mL) syrup 5 ml PO Q6H PRN (Reason: cough) Qty: 60 0RF Rx Instructions: Partial Fill upon patient request. albuterol sulfate 90 mcg/actuation HFA aerosol inhaler 2 puff inhalation Q6H PRN (Reason: shortness of breath or wheezing) Qty: 6.7 0RF No Action famotidine [Pepcid] 20 mg tablet 20 mg PO BID PRN (Reason: abdominal discomfort) Qty: 60 0RF acetaminophen 650 mg Tablet Extended Release 650 mg PO Q8H PRN (Reason: Pain) senna 8.6 mg capsule 8.6 mg PO BEDTIME PRN (Reason: constipation) Qty: 30 0RF albuterol sulfate 90 mcg/actuation HFA aerosol inhaler 2 puff inhalation Q6H PRN (Reason: shortness of breath or wheezing) Qty: 6.7 0RF lorazepam 1 mg tablet 1 mg PO sertraline 100 mg tablet 150 mg PO BEDTIME cholecalciferol (vitamin D3) 25 mcg (1,000 unit) capsule 25 mcg PO DAILY 90 Days Qty: 90 0RF atenolol 25 mg tablet 25 mg PO DAILY Qty: 90 0RF prednisone 20 mg tablet 20 mg PO DAILY Qty: 7 0RF mupirocin calcium 2 % cream 1 appl topical BID Qty: 15 0RF Rx Instructions: Apply thin layer to the Lip Interventions: ED Discharge Assessment Last Done: 12/08/23 11:19 Discharge Date/Time: 12/08/23 11:20 Print Language: Niuean
[2023-12-08 10:12] LABS: Influenza A PCR NEGATIVE (Negative); Influenza B PCR NEGATIVE (Negative); Resp Syncy Virus RNA Qual PCR NEGATIVE (Negative); SARS COV2 PCR INHOUSE NEGATIVE (Negative)
[2023-12-08 11:19] VITALS: BP 158/97; PULSE 73; RESP 18; TEMP 36.7; O2SAT 96
== END 2023-12-08 11:20 | disposition home or self-care (01) ==
PROVIDERS: Emergency Provider Emergency Medicine; PCP Internal Medicine
DX: J40 Bronchitis, not specified as acute or chronic (principal); Z03.818 Encounter for observation for suspected exposure to other biological agents ruled out; I10 Essential (primary) hypertension; E78.00 Pure hypercholesterolemia, unspecified; R05.9 Cough, unspecified; Z79.899 Other long term (current) drug therapy
CPT/HCPCS: 0241U; 71045; 93005; 99283

== ENCOUNTER 2023-12-12 15:08 | Outpatient (AMB) | payer OTHER, SELFPAY ==
[2023-12-12 15:10] VITALS: BP 140/100; PULSE 68; O2SAT 97; BMI 28.9
--- NOTE | 2023-12-12 15:10 | MHC.PC.OV ---
Vital Signs 12/12/23 15:10 Height 5 ft 8 in Weight 190 lb BMI 28.9 BP 140/100 H Blood Pressure Location Rt brachial Position Sitting Pulse 68 Pulse Source Pulse Oximeter Pulse Oximetry (%) 97 Oxygen Delivery Method Room Air Intake Visit Reasons: Acute Bronchitis Allergies No Known Allergies Allergy (Verified 12/12/23 15:10) Medication List - Last Reconciled 12/12/23 by Rhina Thurman MD acetaminophen ER 650 mg PO Q8H PRN albuterol sulfate 90 mcg/actuation 2 puffs inhalation Q6H PRN albuterol sulfate 90 mcg/actuation 2 puffs inhalation Q6H PRN atenolol 25 mg PO DAILY azithromycin (Zithromax Z-Stephen) take 500 mg today (day 1), then 250 mg for 4 days (days 2-5) cholecalciferol (vitamin D3) 25 mcg PO DAILY 90 days famotidine (Pepcid) 20 mg PO BID PRN hydrocodone-homatropine 5-1.5 mg/5 mL (5 mL) (Hycodan) 5 mL PO Q6H PRN lorazepam 1 mg PO mupirocin calcium 2% 1 appl topical BID prednisone 40 mg (2 x 20 mg) PO DAILY sennosides (senna) 8.6 mg PO BEDTIME PRN sertraline 150 mg PO BEDTIME Tobacco use date assessed: 12/12/23 Dental Screening Dental Screen Date: 12/12/23 Did you have a dental visit in the last 12 months?: Yes Did you have a dental problem in the last 6 months where you did not have access to dental care?: No Was dental information given to patient?: Patient has dentist HPI Acute Bronchitis HPI Details Patient is a 53-year-old gentleman came in today to be evaluated for cough and chest congestion Patient was seen in walk-in clinic of this month and was diagnosed with acute bronchitis Patient says that he had chest x-ray which did not show any pneumonia at that visit However he is not getting better he was prescribed a Z-Stephen and prednisone Continued to cough and feel tight in his chest On examination today he is wheezing and has rhonchi at the bases I am repeating chest x-ray Antibiotic changed to clarithromycin 500 mg b.i.d. for 10 days Medrol Dosepak And benzonatate 200 mg b.i.d. p.r.n. for cough Patient will return in 2 weeks for follow-up appointment [facility] Medical History Cough Canker sores oral Colon cancer screening History of small bowel obstruction Elevated blood pressure reading Pain management Open fracture of distal end of left humerus Snoring Daytime sleepiness Witnessed apneic spells Sensation of fullness in both ears Acquired generalized premature ejaculation Hospital discharge follow-up Obesity due to excess calories Change in mole Pharyngitis Loud snoring Change in mole Establishing care with new doctor, encounter for History of changing skin mole Obesity Mass of abdomen Swelling Toenail deformity Multiple complaints High cholesterol Hypertension Surgical History Hx laparoscopic cholecystectomy History of esophagogastroduodenoscopy (EGD) Family History Father Hypertension Diabetes Social History Household Members: Family Housing: Apartment Do you presently have visiting nurse or other home services: No Alcohol intake: never Patient Tobacco Use Status: Never used Tobacco e-Cigarette/Vaping Use: Never Used Second Hand Smoke Exposure: No service: No Current occupational status: unemployed Cognitive needs: No Hearing needs: No Vision needs: Yes Questionnaire Thrive Questionnaire Date Thrive assessed: 10/30/23 AUDIT C Alcohol Use Questionnaire (AUDIT-C) 1. How often do you have a drink containing alcohol?: Never 3. How often do you have six or more drinks on one occasion?: Never Total Score: 0 Score Reviewed/Action Taken: Yes BENI-7 AMB Questionnaire BENI-7 Date BENI - 7 assessed: 10/30/23 Source: Developed by Drs. Deven Naranjo, Cornelia Marmolejo, Harry Manrique and colleagues, with an educational amari from [email or web address]. Review of Systems Const Denies chills and Denies fever(s) ENT Denies epistaxis and Denies nasal discharge Resp Denies hemoptysis GI Denies diarrhea and Denies nausea Skin/Breast Denies rash Neuro Reports no additional complaints Psych Reports no additional complaints Endo Reports no additional complaints Physical exam (Primary Care) Vital Signs: Last Vital Signs Pulse 68 12/12/23 15:10 BP 140/100 H 12/12/23 15:10 Pulse Ox 97 12/12/23 15:10 Oxygen Delivery Method Room Air 12/12/23 15:10 BMI result Body Mass Index 28.9 Tobacco/Smoking Status: Tobacco use Status Tobacco use date assessed 12/12/23 12/12/23 15:12 Patient Tobacco Use Status Never used Tobacco 12/12/23 15:12 e-Cigarette/Vaping Use Never Used 12/12/23 15:12 Thrive Assessment: Date of Thrive Assessment Date Thrive assessed 10/30/23 12/12/23 15:12 Const General: cooperative, comfortable and no acute distress Orientation/consciousness: patient oriented x3 HENMT Head: Yes normocephalic Eyes General: appearance normal, both eyes and all related structures Neck Neck: Yes supple Chest Other: wheeze and rhonchi bilateral with deep breath Resp Effort & Inspection: no stridor Cardio Rhythm: regular rhythm Heart sounds: S1 normal heart sound present and S2 normal heart sound present Skin General skin exam: turgor normal Neuro General: patient oriented x3, tone normal and moves all extremities Extrem Right lower extremity: no edema Left lower extremity: no edema Assessment and Plan Assessment & Plan (1) Community acquired pneumonia: Code(s): J18.9 - Pneumonia, unspecified organism Qualifiers: Laterality: unspecified laterality Qualified Code(s): J18.9 - Pneumonia, unspecified organism (2) Chest congestion: Code(s): R09.89 - Other specified symptoms and signs involving the circulatory and respiratory systems (3) Wheezing: Code(s): R06.2 - Wheezing (4) Cough: Code(s): R05.9 - Cough, unspecified Qualifiers: Cough type: acute Qualified Code(s): R05.1 - Acute cough Plan Patient is a 53-year-old gentleman came in today to be evaluated for cough and chest congestion Patient was seen in walk-in clinic of this month and was diagnosed with acute bronchitis Patient says that he had chest x-ray which did not show any pneumonia at that visit However he is not getting better he was prescribed a Z-Stephen and prednisone Continued to cough and feel tight in his chest On examination today he is wheezing and has rhonchi at the bases I am repeating chest x-ray Antibiotic changed to clarithromycin 500 mg b.i.d. for 10 days Medrol Dosepak And benzonatate 200 mg b.i.d. p.r.n. for cough Patient will return in 2 weeks for follow-up appointment Orders: Orders XR chest 2V Today R05.9 - Cough, unspecified, R06.2 - Wheezing, R09.89 - Other specified symptoms and signs involving the circulatory and respiratory systems Medications: New clarithromycin 500 mg PO Q12H 20 tabs 0RF 10 days methylprednisolone (Medrol (Stephen)) PO PER PKG DIR 21 ea 0RF 6 days benzonatate 200 mg PO BID PRN 20 caps 0RF cough 10 days Discontinued azithromycin (Zithromax Z-Stephen) Discontinued Reason: Patient Completed Course take 500 mg today (day 1), then 250 mg for 4 days (days 2-5) 6 tabs 0RF hydrocodone-homatropine 5-1.5 mg/5 mL (5 mL) (Hycodan) Partial Fill upon patient request. Discontinued Reason: Doctor's Order 5 mL PO Q6H PRN 60 mL 0RF cough prednisone Discontinued Reason: Doctor's Order 40 mg (2 x 20 mg) PO DAILY 10 tabs 0RF Coding Level of Care Code Est Pt Level 4 (23129) Diagnoses Community acquired pneumonia, unspecified laterality J18.9 Laterality: unspecified laterality Chest congestion R09.89 Wheezing R06.2 Acute cough R05.1 Cough type: acute
== END 2023-12-12 15:32 | disposition home or self-care (01) ==
LOC: HO.HMGC 15:08
PROVIDERS: PCP Internal Medicine; Visit Provider Internal Medicine
DX: J18.9 Pneumonia, unspecified organism (principal); R09.89 Other specified symptoms and signs involving the circulatory and respiratory systems; R06.2 Wheezing; R05.1 Acute cough
CPT/HCPCS: 99214

== ENCOUNTER 2023-12-12 15:23 | Outpatient (REF) | payer OTHER, SELFPAY ==
--- NOTE | ~2023-12-12 | XR_ITS ---
EXAMINATION: XR CHEST CLINICAL INFORMATION: Symptoms and signs involving the circulatory system COMPARISON: 12/08/2023, 11/02/2023 TECHNIQUE: 2 views of the chest were obtained. FINDINGS: There is no gross pneumothorax. Heart size is normal. Stable elevation of the right lung base with chronic blunting of the right costophrenic angle. Previously seen linear new opacities in the right midlung have substantially decreased with minimal residual linear opacities. Degenerative changes in the thoracic spine. XR/XR chest 2V IMPRESSION: Previously seen linear new opacities in the right midlung have substantially decreased with minimal residual linear opacities. Electronically signed by: Bridget Blandon MD 01/02/2024 09:24 AM EDT RP
== END 2023-12-12 15:24 | disposition home or self-care (01) ==
LOC: HO.HMGCX 15:23
PROVIDERS: PCP Internal Medicine; Visit Provider Internal Medicine
DX: R09.89 Other specified symptoms and signs involving the circulatory and respiratory systems (principal); R05.9 Cough, unspecified; R06.2 Wheezing
CPT/HCPCS: 71046

== ENCOUNTER 2024-03-05 09:32 | Outpatient (AMB) | payer OTHER, SELFPAY ==
--- NOTE | 2024-03-05 09:36 | AM.OFFWIN_ITS ---
Intake Vital Signs 03/05/24 09:39 Weight 187 lb BP 130/90 H Blood Pressure Location Lt brachial Position Sitting Pulse 80 Pulse Source Pulse Oximeter Pulse Oximetry (%) 94 Oxygen Delivery Method Room Air Intake Visit Reasons: EP-high blood sugar 131 Intake Note: Patient here for elevated Blood sugar Patient Tobacco Use Status: Never used Tobacco Allergies No Known Allergies Allergy (Verified 03/05/24 09:38) Do you need a note to return to daycare/school/sports/work: No HPI EP-high blood sugar 131 HPI Details This note is constructed using voice recognition software. While every effort has been made to ensure accuracy, store grocery merchandiser errors may have been included. The patient is a 53 year old male who presents to the clinic today with concern for elevated blood sugar. He reports that his father has a history of diabetes diagnosed after he was 60, which makes him concern that he could develop diabetes. He also reports that he is drinking lots of water and felt that that could be related. He reports blood glucose levels after eating of 120, 118, and 108 over the past 3 days. He denies polyphagia, diaphoresis. He has never been told by his care team that there was concern for diabetes based on any previous labs. He also reports that he has a slight ringing in his ear over the last couple of days on the left. He requests that his ear be checked. He denies fever, chills, cough, shortness of breath, or other URI symptoms. Denies pain in the area. [facility] Medical History Cough Canker sores oral Colon cancer screening History of small bowel obstruction Elevated blood pressure reading Pain management Open fracture of distal end of left humerus Snoring Daytime sleepiness Witnessed apneic spells Sensation of fullness in both ears Acquired generalized premature ejaculation Hospital discharge follow-up Obesity due to excess calories Change in mole Pharyngitis Loud snoring Change in mole Establishing care with new doctor, encounter for History of changing skin mole Obesity Mass of abdomen Swelling Toenail deformity Multiple complaints High cholesterol Hypertension Surgical History Hx laparoscopic cholecystectomy History of esophagogastroduodenoscopy (EGD) Family History Father Hypertension Diabetes Social History Household Members: Family Housing: Apartment Do you presently have visiting nurse or other home services: No Alcohol intake: never Patient Tobacco Use Status: Never used Tobacco e-Cigarette/Vaping Use: Never Used Second Hand Smoke Exposure: No service: No Current occupational status: unemployed Cognitive needs: No Hearing needs: No Vision needs: Yes Review of Systems Const All systems reviewed & are unremarkable except as noted in HPI and below Physical Exam Vital Signs: Last Vital Signs Pulse 80 03/05/24 09:39 BP 130/90 H 03/05/24 09:39 Pulse Ox 94 03/05/24 09:39 Oxygen Delivery Method Room Air 03/05/24 09:39 Const General: cooperative, healthy appearing, comfortable and no acute distress Orientation/consciousness: patient oriented x3 Limitations: no limitations HEENT Head: Yes normal to inspection Ears: hearing grossly normal bilaterally, external ears normal and TM abnormal retracted General nose exam: Normal external nose present, No nasal discharge present and Abnormal mucous membranes and turbinates present boggy and pale Face and sinus: Yes normal facial exam and Yes sinuses nontender Mouth: Normal oral and palatal mucosa present and moist mucous membranes Throat: Yes tonsils normal, Yes uvula midline, Yes posterior oropharynx abnormal (Erythema), Yes postnasal drainage and Yes cobblestoning Eyes General: appearance normal, both eyes and all related structures Neck Neck: Yes normal visual inspection Resp Effort & Inspection: normal respiratory effort, able to speak in complete sentences, Actively coughing, no respiratory distress, not tachypneic, no tripod positioning and no use of accessory muscles Auscultation: clear to auscultation bilaterally Cardio Rate: regular rate Rhythm: regular rhythm Heart sounds: normal S1 and S2 Skin General skin exam: no rashes or lesions noted Neuro General: patient oriented x3 Extrem General: Yes normal to inspection and Yes no clubbing, cyanosis or edema Assessment & Plan Assessment & Plan (1) Allergic rhinitis: Code(s): J30.9 - Allergic rhinitis, unspecified Qualifiers: Allergic rhinitis trigger: unspecified Allergic rhinitis seasonality: unspecified Qualified Code(s): J30.9 - Allergic rhinitis, unspecified Plan: Supportive measures encouraged and reviewed. Advised patient to try a Flonase nasal spray and second-generation antihistamine such as Zyrtec, Claritin, Trina or similar. Advised consideration of sinus rinse if needed. Advised patient to follow up with primary care provider with worsening or failure to resolve. Plan See above for full details and plan. Reviewed normal glucose levels with patient, and ranges for fasting versus after meals. His current glucose today, as well as his glucose at home have all been well within normal limits. Coding Level of Care Code Est Pt Level 3 (13308) Diagnoses Allergic rhinitis, unspecified seasonality, unspecified trigger J30.9 Allergic rhinitis trigger: unspecified Allergic rhinitis seasonality: unspecified
[2024-03-05 09:39] VITALS: BP 130/90; PULSE 80; O2SAT 94
== END 2024-03-05 12:21 | disposition home or self-care (01) ==
PROVIDERS: PCP Internal Medicine; Visit Provider Registered Nurse
DX: Z13.9 Encounter for screening, unspecified (principal); J30.9 Allergic rhinitis, unspecified

== ENCOUNTER → 2024-03-05 09:32 | Outpatient (BNVA) | payer OTHER, SELFPAY | PROVIDERS: PCP Internal Medicine; Visit Provider Registered Nurse | DX: J30.9 Allergic rhinitis, unspecified (principal); Z13.1 Encounter for screening for diabetes mellitus | CPT/HCPCS: 82948; 99212 ==

== ENCOUNTER 2024-04-28 15:26 | Outpatient (AMB) | payer OTHER, SELFPAY ==
--- NOTE | 2024-04-28 15:29 | MHC.OFFVIS ---
Vital Signs 04/28/24 15:31 Height 5 ft 8 in Weight 189 lb 9.561 oz BMI 28.8 BP 126/73 Blood Pressure Location Lt brachial Position Sitting Pulse 50 Intake Visit Reasons: pre colonoscopy/Gina pt Intake Note: Reza presents in the office as colonoscopy screening. CC: Seen Gina in the past - due for a colonoscopy. Denies GI concerns. Allergies No Known Allergies Allergy (Verified 04/28/24 15:32) HPI HPI pre colonoscopy/Gina pt: Details: LAST VISIT WITH HERIBERTO SEALS 05/05/2022 Pleasant 52-year-old male referred for index screening colonoscopy. He has no GI complaints. We have discussed procedure, rare risks, indication, need for escorted due to anesthesia as well as MiraLax Gatorade split prep-literature given He agrees to proceed To call with any questions or concerns No major barriers to understanding were identified. Index screening MG prep- lit given TODAY'S VISIT Patient previously seen by Heriberto Seals in April of 2022. Never schedule colonoscopy. This will be his 1st screening. Patient denies any gastrointestinal symptoms in the past or at present.? Denies any personal or family history of gastrointestinal disease, colon polyps, or CRC.? Denies history of difficulty with sedation or anesthesia in the past.? History of sleep apnea.? Denies any history of cardiac, renal, pulmonary, or hepatic disease.?? No history of infectious? diseases like hepatitis A, B, C, HIV or tuberculosis.? Patient is not on any anticoagulation [facility] Medical History (Updated 04/28/24 @ 20:27 by Martha Dixon NURSE DISCHARGE PLANNER-) Ventral hernia DARREL (obstructive sleep apnea) Encounter for general adult medical examination with abnormal findings Hypertension, essential Canker sores oral Right lumbar radiculitis Osteoarthritis of right hip Low back pain Community acquired pneumonia Colon cancer screening History of small bowel obstruction Elevated blood pressure reading Pain management Open fracture of distal end of left humerus Daytime sleepiness Witnessed apneic spells Acquired generalized premature ejaculation Obesity due to excess calories Change in mole Pharyngitis Obesity Mass of abdomen High cholesterol Hypertension Surgical History Hx laparoscopic cholecystectomy History of esophagogastroduodenoscopy (EGD) Family History Father Hypertension Diabetes Social History Household Members: Family Housing: Apartment Do you presently have visiting nurse or other home services: No Alcohol intake: never Patient Tobacco Use Status: Never used Tobacco e-Cigarette/Vaping Use: Never Used Second Hand Smoke Exposure: No service: No Current occupational status: unemployed Cognitive needs: No Hearing needs: No Vision needs: Yes Review of Systems Const Denies weight gain and Denies weight loss ENT Reports no additional complaints, Denies dysphagia and Denies odynophagia Card Reports no additional complaints Resp Reports no additional complaints GI Denies abdominal pain, Denies belching, Denies melena, Denies bloating, Denies change in bowel habits, Denies dysphagia, Denies excessive flatus, Denies dyspepsia, Denies heartburn, Denies diarrhea, Denies loose stools, Denies nausea, Denies odynophagia and Denies vomiting Reports no additional complaints Musc Reports no additional complaints Neuro Reports no additional complaints Psych Reports no additional complaints Endo Reports no additional complaints Physical Exam Vital Signs: Last Vital Signs Pulse 50 04/28/24 15:31 BP 126/73 04/28/24 15:31 BMI result Body Mass Index 28.8 Const General: healthy appearing, no acute distress and well developed Nutritional Appearance: well nourished Orientation/consciousness: patient oriented x3 Resp Effort & Inspection: normal respiratory effort, able to speak in complete sentences, no tracheal deviation and symmetric chest movement Auscultation: clear to auscultation bilaterally Cardio Rate: regular rate GI Inspection: Yes normal to inspection and No distended Palpation (GI): Soft to palpation, not firm, nontender and No hepatosplenomegaly present Auscultation: normal bowel sounds General: Yes no CVA tenderness Back/Spine/Pelvis Back: no CVA tenderness Skin General skin exam: elasticity normal, turgor normal and dry skin Neuro General: patient oriented x3 Psych Appearance: grossly normal Mental Status: mental status grossly normal Assessment & Plan Assessment & Plan (1) Colon cancer screening: Code(s): Z12.11 - Encounter for screening for malignant neoplasm of colon Category: Medical Plan Patient denies any GI, cardiac or respiratory symptoms.? Denies any issues with anesthesia in the past.? History of sleep apnea.? No history infectious diseases in the past or present.? Not on any anticoagulation therapy.? No family or personal history of colon cancer or polyps.? Patient denies melena, hematochezia, unintentional weight loss or ribbon like stools.? Discussed at length the pre-procedure,? prep, diet & medications as well as what to expect prior, during and after the procedure.?? Stressed the importance of good bowel prep.? Recommended the use of Vaseline or Calmoseptine OTC & baby wipes with bowel movements to promote comfort.? ?Patient verbalizes understanding and agrees to plan of care.? He was given the opportunity to ask questions and all questions answered.? We will see him after the procedure.? Medications: New bisacodyl (Dulcolax (bisacodyl)) take 4 tabs at noon the day before your colonoscopy 20 mg (4 x 5 mg) PO ONCE 1 day 4 tabs 0RF Z12.11 - Encounter for screening for malignant neoplasm of colon polyethylene glycol 3350 (Miralax) As directed by gastroenterology department at [facility] 238 grams PO ONCE 238 grams 0RF Z12.11 - Encounter for screening for malignant neoplasm of colon Coding Level of Care Code Est Pt Level 3 (46338) Diagnoses Colon cancer screening Z12.11 Time Spent (min) 30 Comment 20 minutes spent with patient and additional 10 minutes spent reviewing his records
[2024-04-28 15:31] VITALS: BP 126/73; PULSE 50; BMI 28.8
== END 2024-04-28 16:12 | disposition home or self-care (01) ==
PROVIDERS: PCP Internal Medicine; Visit Provider Nurse Practitioner Family
DX: Z01.818 Encounter for other preprocedural examination (principal); Z12.11 Encounter for screening for malignant neoplasm of colon
CPT/HCPCS: 99024

== ENCOUNTER → 2024-04-28 15:26 | Outpatient (BNVA) | payer OTHER, SELFPAY | PROVIDERS: PCP Internal Medicine; Visit Provider Nurse Practitioner Family | DX: Z12.11 Encounter for screening for malignant neoplasm of colon (principal) | CPT/HCPCS: 99212 ==